=== PATIENT | male | born 1970 | race African-American/Black ===

== ENCOUNTER 2018-01-07 08:50 | Inpatient (IN) | payer OTHER ==
[2018-01-07] MEDS ORDERED: BIVALIRUDIN 250 MG in SODIUM CHLORIDE 0.9% 50 ML IV ONE (12:40)
[2018-01-07] MEDS ORDERED: BIVALIRUDIN BOLUS 250 MG/50 ML IV ONE (12:40)
[2018-01-07] MEDS ORDERED: SODIUM CHLORIDE 0.9% 1,000 ML IV ONE (12:42)
[2018-01-07] MEDS ORDERED: NITROGLYCERIN SL TABS 0.4 MG TAB SUBLINGUAL ONE ×2 (12:45→12:55)
[2018-01-07] MEDS ORDERED: NITROGLYCERIN 1000MCG/10ML SYRINGE INTRACORON ONE (12:58)
[2018-01-07] MEDS ORDERED: IOHEXOL 350 MG/ML 125ML BOTTLE INJ ONE (13:08)
[2018-01-07] MEDS ORDERED: NITROGLYCERIN SL TABS 0.4 MG TAB SUBLINGUAL PRN (13:13)
[2018-01-07] MEDS ORDERED: RX INFO: IV CONTRAST WAS GIVEN 1 EACH MISC MISCELLANE PRN (13:13)
[2018-01-07] MEDS ORDERED: ZOLPIDEM 5 MG TAB PO PRN (13:13)
[2018-01-07] MEDS ORDERED: MAG HYDROX/AL HYDROX/SIMETH 30 ML CUP PO PRN (13:13)
[2018-01-07] MEDS ORDERED: ATROPINE SULFATE 0.1 MG/ML 10ML SYRINGE IV PRN (13:13)
[2018-01-07] MEDS ORDERED: SODIUM CHLORIDE 0.9% 1,000 ML IV SCH ×2 (13:15→18:45)
[2018-01-07] MEDS ORDERED: NITROGLYCERIN SL TABS 0.4 MG TAB SUBLINGUAL STA (15:05)
[2018-01-07] MEDS ORDERED: amLODIPine 5 MG TAB PO STA (15:07)
[2018-01-07] MEDS ORDERED: LOSARTAN 50 MG TAB PO SCH ×2 (16:30→21:00)
[2018-01-07 17:16] LABS: Glucose,Whole Blood 133 mg/dL (75-99)
[2018-01-07] MEDS: hydrALAZINE HCL 50 MG TAB PO SCH ×2 (18:38→21:47)
[2018-01-07 20:40] LABS: INR 1.1 (<1.2); Prothrombin Time 10.8 sec (9.0-12.0)
[2018-01-07] MEDS: amLODIPine 5 MG TAB PO SCH (20:49)
[2018-01-07] MEDS: ATORVASTATIN 80 MG TAB PO SCH (20:49)
[2018-01-07] MEDS: SODIUM CHLORIDE 0.9% 1,000 ML IV SCH (20:50)
[2018-01-07] MEDS ORDERED: hydrALAZINE HCL 50 MG TAB PO SCH (21:00)
[2018-01-07 21:34] VITALS: BMI 24.5
--- NOTE | 2018-01-07 22:13 | PTCA ---
PERCUTANEOUSTRANS CORORONARY ANGIOGRAPHY DATE OF SERVICE: 01/07/2018 PROCEDURE PERFORMED: PTCA and stenting of mid left anterior descending coronary artery with a drug-eluting stent. PERFORMED BY: Dr. Steve Glilis. LEVEL OF SEDATION: Moderate conscious sedation time was 30 minutes. The patient received a combination of Benadryl and fentanyl. He was monitored very closely and his oxygen saturation was monitored throughout the procedure. CLINICAL INFORMATION: Mr. Tony Leyva is a 47-year-old gentleman seen and evaluated by Dr. Zarco at [facility] where he presented with chest pain and had a non-ST elevation NE. He also had a complete third-degree heart block. He underwent a temporary transvenous pacemaker from right femoral approach and then also had a coronary angiography at [facility], which revealed 95% mid LAD lesion and a 50- 60% RCA lesion. He was advised LAD intervention and transferred for the procedure here. PROCEDURE NOTE: The existing 6-Chinese introducer in the right femoral artery was used to perform the procedure. I used a standard left Trung type guide catheter to cannulate the left coronary artery. A BMW wire was used to cross the lesion. Predilatation was performed using a 3.0 caliber 8 mm balloon initially but because the balloon kept slipping, I used a larger 12 mm long 3.0 caliber balloon to pre-dilate the lesion and then deployed a 4.0 caliber 12 mm long Xience stent with an excellent angiographic result. The patient had chest pain, but because of his paced rhythm, we could not discern any EKG changes. Excellent angiographic result without complication was achieved. I spoke to the patient's friend by telephone but his mother was not available by telephone and no other family member was in the hospital. Excellent angiographic result without complication was achieved. The patient was sent to the observation unit waiting for an ICU bed. MMODL / IJN: [id number] /
[2018-01-08] MEDS ORDERED: hydrALAZINE HCL 50 MG TAB PO STA (00:47)
[2018-01-08] MEDS ORDERED: LOSARTAN 50 MG TAB PO ONE (03:00)
[2018-01-08 04:58] LABS: Basophils % (A) 0 %; Eosinophils # (A) 0.1 k/uL (0-0.7); Eosinophils % (A) 1 %; HCT 46.3 % (39.0-53.0); HGB 16.3 gm/dL (13.0-17.5); Lymphocytes # (A) 1.6 k/uL (1.0-4.8); Lymphocytes % (A) 18 %; MCH 30.9 pg (25.0-35.0); MCHC 35.2 g/dL (31.0-37.0); MCV 87.7 fL (80.0-100.0); Mean Platelet Volume 8.6; Monocytes # (A) 0.8 k/uL (0-1.0); Monocytes % (A) 9 %; Neutrophils # (A) 6.4 k/uL (1.3-7.7); Neutrophils % (A) 70 %; Platelet Count 159 k/uL (150-450); RBC 5.28 m/uL (4.30-5.90); RDW 13.1 % (11.5-15.5); WBC 9.1 k/uL (3.8-10.6)
[2018-01-08 05:03] LABS: Anion Gap 11 mmol/L; Blood Urea Nitrogen 13 mg/dL (9-20); Calcium 9.5 mg/dL (8.4-10.2); Carbon Dioxide 20 mmol/L (22-30); Chloride 108 mmol/L (98-107); Glucose 97 mg/dL (74-99); Potassium 4.1 mmol/L (3.5-5.1); Sodium 139 mmol/L (137-145)
[2018-01-08] MEDS ORDERED: ceFAZolin 1,000 MG in SODIUM CHLORIDE 0.9% IRRIGATIO 250 ML IRRIGATION ONE (06:00)
[2018-01-08] MEDS ORDERED: ceFAZolin IN SWFI 2 GM/20 ML SYRINGE IVP ONE (06:00)
[2018-01-08] MEDS ORDERED: ACETAMINOPHEN TAB 325 MG TAB PO PRN (06:45)
[2018-01-08] MEDS: LOSARTAN 25 MG TAB PO SCH ×2 (08:56→19:57)
[2018-01-08] MEDS: hydrALAZINE HCL 50 MG TAB PO SCH ×4 (08:56→21:12)
[2018-01-08] MEDS: ACETAMINOPHEN TAB 325 MG TAB PO PRN ×2 (08:58→16:27)
[2018-01-08] MEDS ORDERED: ASPIRIN 325 MG TAB PO SCH (09:00)
[2018-01-08] MEDS ORDERED: LOSARTAN 50 MG TAB PO SCH (09:00)
[2018-01-08] MEDS ORDERED: IV FLUID CONTINUATION 500 ML IV ONE (09:50)
[2018-01-08] MEDS ORDERED: IV FLUID CONTINUATION 300 ML IV ONE (09:50)
[2018-01-08] MEDS ORDERED: IOHEXOL 350 MG/ML 50ML BOTTLE INJ ONE (10:10)
[2018-01-08] MEDS ORDERED: fentaNYL (PF) 50 MCG/ML 2 ML AMP ONE (10:13)
[2018-01-08] MEDS ORDERED: MIDAZOLAM 2 MG/2 ML VIAL ONE (10:13)
[2018-01-08] MEDS ORDERED: fentaNYL (PF) 50 MCG/ML 2 ML AMP IV ONE (11:00)
[2018-01-08] MEDS: MIDAZOLAM 2 MG/2 ML VIAL IV ONE ×2 (11:00→11:13)
[2018-01-08] MEDS ORDERED: LIDOCAINE 1% INJ 10MG/ML (20 ML MDV) SQ ONE (11:08)
[2018-01-08] MEDS ORDERED: LIDOCAINE 2% INJ 20 MG/ML SQ ONE (12:42)
[2018-01-08] MEDS ORDERED: LABETALOL 5 MG/ML VIAL MDV ONE (12:56)
[2018-01-08] MEDS ORDERED: LABETALOL 5 MG/ML VIAL MDV IVP ONE (12:59)
[2018-01-08] MEDS: amLODIPine 5 MG TAB PO SCH ×2 (13:40→19:57)
[2018-01-08] MEDS: ASPIRIN 81 MG PO SCH (13:40)
[2018-01-08] MEDS: cloNIDine HCL 0.1 MG TAB PO SCH ×2 (13:43→19:57)
[2018-01-08] MEDS: CLOPIDOGREL 75 MG TAB PO SCH (13:43)
--- NOTE | 2018-01-08 15:19 | P.CNPUL ---
History of Present Illness Consult date: 01/08/18 Requesting physician: Jordon Busch Reason for consult: COPD Chief complaint: COPD History of present illness: Tony Leyva is a 47 y.o. male being seen examined and evaluated today. The patient initially came in to [facility] to the emergency room with complaints of chest pain and shortness of breath. He states his chest pain was ongoing for the last 5 days and had been progressively getting worse. In the emergency room the EKG showed the patient to be in complete heart block with a rate into the mid 40s, he was also hypertensive. He also underwent a CT scan of the chest which did show a mild aneurysmal dilation of the ascending aorta that was 3.7 cm. Chest x-ray was negative. His current echocardiogram is pending. The patient was started on a nitro drip and his heart rate is 40. Patient was also started on heparin drip as well. Patient had a BNP of 440. His troponins were slightly elevated. He had a potassium of 3.6. The patient is a current every day smoker and smokes at least 2 packs per day and has for over 40 years. He also smokes recreational marijuana as well as cigarettes. Patient does have a significant family history for heart attacks resulting in with his grandma and his aunt. Cardiology has seen the patient and the patient will be going for a heart catheterization with pacemaker insertion on 01/07/18 however was found to have an occlusion of 95% to the LAD and was transferred to [facility] for intervention. Intervention completed on , and pacemaker insertion done on 01/08/18 please see those notes for details. Patient states he has not seen a doctor in over 20 years. He has never had a pulmonary workup or cardiac workup. Presently the patient is resting up in bed on room air. Previously the patient was on supplemental oxygen overnight. However he was complaining of some nasal dryness. He denies any current chest pain or any current shortness of breath at this time. Review of Systems 14 point ROS was completed and is negative unless noted above in the HPI Past Medical History Past Medical History: COPD, Hypertension History of Any Multi-Drug Resistant Organisms: None Reported Past Anesthesia/Blood Transfusion Reactions: No Reported Reaction Past Psychological History: No Psychological Hx Reported Smoking Status: Current every day smoker Past Alcohol Use History: Rare Additional Past Alcohol Use History / Comment(s): "Social" "Less then one a week " Past Drug Use History: Marijuana Medications and Allergies Home Medications Medication Instructions Recorded Confirmed Type No Known Home Medications [No 01/07/18 01/07/18 History Known Home Medications] Allergies Allergy/AdvReac Type Severity Reaction Status Date / Time No Known Allergies Allergy Verified 01/07/18 18:22 Physical Exam Vitals: Vital Signs Temp Pulse Pulse Resp BP BP Pulse Ox 01/08/18 14:15 80 18 177/112 96 01/08/18 14:00 78 18 174/116 97 01/08/18 13:45 77 16 183/119 96 01/08/18 13:30 75 16 173/115 96 01/08/18 09:45 50 L 10 L 180/85 01/08/18 09:30 50 L 13 172/94 97 01/08/18 09:15 50 L 10 L 173/94 99 01/08/18 09:00 50 L 16 159/86 98 01/08/18 08:45 50 L 18 159/88 99 01/08/18 08:30 50 L 16 170/89 99 01/08/18 08:15 50 L 18 177/88 97 01/08/18 08:00 98.4 F 50 L 20 179/90 98 01/08/18 07:45 50 L 22 170/80 98 01/08/18 07:30 49 L 16 172/90 98 01/08/18 06:45 49 L 21 159/84 98 01/08/18 06:30 49 L 17 162/82 97 01/08/18 06:15 49 L 12 168/90 97 01/08/18 06:00 49 L 12 172/82 98 01/08/18 05:45 50 L 16 172/82 96 01/08/18 05:30 49 L 16 167/83 96 01/08/18 05:15 49 L 16 150/84 97 01/08/18 05:00 49 L 18 153/78 98 01/08/18 04:45 49 L 17 154/78 96 01/08/18 04:30 50 L 14 167/80 96 01/08/18 04:15 49 L 16 152/74 97 01/08/18 04:00 98.9 F 49 L 15 168/78 98 01/08/18 03:45 49 L 10 L 173/74 97 01/08/18 03:30 49 L 17 157/75 97 01/08/18 03:15 49 L 12 152/75 98 01/08/18 03:00 49 L 14 147/71 97 01/08/18 02:30 49 L 16 167/78 97 01/08/18 02:00 49 L 16 158/72 98 01/08/18 01:30 49 L 18 177/85 99 01/08/18 01:00 50 L 15 181/89 98 01/08/18 00:30 49 L 10 L 179/83 99 01/08/18 00:18 49 L 59 H 189/84 97 01/08/18 00:00 98.8 F 49 L 10 L 171/83 97 01/07/18 23:30 49 L 16 168/81 96 01/07/18 23:00 49 L 17 158/83 96 01/07/18 22:30 50 L 12 163/83 97 01/07/18 22:00 49 L 19 183/87 97 01/07/18 21:30 51 L 12 176/102 98 01/07/18 21:00 50 L 26 H 196/98 98 01/07/18 20:49 49 L 20 191/95 99 01/07/18 20:25 99 01/07/18 20:00 98.4 F 49 L 11 L 183/93 98 01/07/18 19:30 50 L 11 L 175/105 98 01/07/18 19:00 51 L 10 L 188/92 98 01/07/18 18:30 49 L 14 189/107 98 01/07/18 18:00 50 L 62 H 208/101 98 01/07/18 17:30 98.5 F 50 L 11 L 191/106 98 01/07/18 16:30 20 180/97 Intake and Output 01/08/18 01/08/18 01/08/18 06:59 14:59 22:59 Intake Total 530 375 Output Total 450 200 Balance 80 175 Intake: IV 530 375 Sodium Chloride 0.9% 1, 530 100 000 ml @ 50 mls/hr IV . Q20H [facility] Rx#:[id number] Output: Urine 450 200 Other: Voiding Method Urinal Urinal # Voids 0 1 # Bowel Movements 0 Weight 89.1 kg 89.1 kg GENERAL EXAM: Alert, comfortable in no apparent distress. HEAD: Normocephalic. EYES: Normal reaction of pupils, equal size. NOSE: Clear with pink turbinates. THROAT: No erythema or exudates. NECK: No masses, no JVD. CHEST: No chest wall deformity. Status post pacemaker insertion. Dressing clean and dry and intact. LUNGS: Equal air entry with some expiratory wheezing. CVS: S1 and S2 normal with no audible mumurs, regular rhythm. ABDOMEN: No hepatosplenomegaly, normal bowel sounds, no guarding or rigidity. EXTREMITIES: No edema noted, pedal pulses palpable. CENTRAL NERVOUS SYSTEM: No focal deficits, tone is normal in all 4 extremities. 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 Chest x-ray in the morning. Add DuoNeb and budesonide patient continues to be somewhat wheezing. Continue with pulmonary hygiene, coughing and deep breathing exercises , and supportive care. Supplemental oxygen to maintain oxygen saturations of 92 % or better. Continue nebulizer treatments. GI and DVT prophylaxis. Smoking cessation discussed at length. Patient needs to have a full pulmonary workup in the outpatient setting including a PFT. Cardiology recommendations. We will continue to monitor labs/results and adjust treatment as necessary. Further recommendations pending. I performed an examination of the patient and discussed their management with the nurse practitioner. I have reviewed the nurse practitioner's note and agree with the documented findings and plan of care.
[2018-01-08] MEDS ORDERED: SODIUM CHLORIDE 0.65% NASAL SPRAY 44 ML BTL NASAL PRN (15:20)
[2018-01-08] MEDS: ceFAZolin IN SWFI 2 GM/20 ML SYRINGE IVP SCH ×2 (16:28→22:35)
[2018-01-08] MEDS: IPRATROPIUM-ALBUTEROL 3 ML NEB INHALATION SCH (19:35)
[2018-01-08] MEDS: BUDESONIDE 0.5 MG/2 ML NEBU INHALATION SCH (19:35)
[2018-01-08] MEDS: ATORVASTATIN 80 MG TAB PO SCH (19:56)
[2018-01-08] MEDS: SODIUM CHLORIDE 0.9% 1,000 ML IV SCH (19:57)
[2018-01-08] MEDS: Acetaminophen-Codeine 300-30mg TAB PO PRN (21:12)
[2018-01-09] MEDS: Acetaminophen-Codeine 300-30mg TAB PO PRN ×2 (01:37→05:44)
[2018-01-09 03:57] VITALS: RESP 18
[2018-01-09] MEDS: ceFAZolin IN SWFI 2 GM/20 ML SYRINGE IVP SCH ×2 (05:44→12:13)
--- NOTE | 2018-01-09 06:29 | XR ---
EXAMINATION TYPE: XR chest 2V DATE OF EXAM: 01/09/2018 HISTORY: Lead placement check. REFERENCE: NONE. FINDINGS: A bipolar pacemaker is in place via a left subclavian approach. Approximately overlies the upper portion of the right atrium and distally overlies the right ventricle. Lungs are clear. Pleural space are clear. Heart size is normal. No pneumothorax is seen. IMPRESSION: STATUS POST PACEMAKER INSERTION.
--- NOTE | 2018-01-09 06:57 | HP ---
HISTORY AND PHYSICAL CHIEF COMPLAINT: This is a 47-year-old white male, status post angioplasty of the LAD, cardiomyopathy and pacemaker for third-degree heart block, having no chest pain or shortness of breath. Risk factor modification explained to the patient. Medications reviewed. REVIEW OF SYSTEMS: The patient's review of systems is negative 14 point review of systems except for mentioned in HPI. PHYSICAL EXAM: VITAL SIGNS: Stable, afebrile. CARDIOVASCULAR: S1, S2. LUNGS: Clear. GI: Soft. HEMATOLOGY: Negative Homans. VASCULAR: Normal dorsalis pedis, posterior tibial and radial pulses. OPHTHALMOLOGIC: Pupils equal, round, react to light and accommodation. Extraocular movements intact. PSYCH: Fair mood and affect. ASSESSMENT: 1. Non ST elevation myocardial infarction, PTCA of the LAD, coronary artery disease. 2. Please see further orders. MMODL / IJN: [id number] /
[2018-01-09] MEDS: IPRATROPIUM-ALBUTEROL 3 ML NEB INHALATION SCH ×2 (07:06→13:21)
[2018-01-09] MEDS: BUDESONIDE 0.5 MG/2 ML NEBU INHALATION SCH (07:06)
[2018-01-09] MEDS: amLODIPine 5 MG TAB PO SCH (08:35)
[2018-01-09] MEDS: ASPIRIN 81 MG PO SCH (08:35)
[2018-01-09] MEDS: cloNIDine HCL 0.1 MG TAB PO SCH (08:35)
[2018-01-09] MEDS: CLOPIDOGREL 75 MG TAB PO SCH (08:35)
[2018-01-09] MEDS: hydrALAZINE HCL 50 MG TAB PO SCH ×2 (08:36→12:14)
[2018-01-09] MEDS: LOSARTAN 25 MG TAB PO SCH (08:36)
--- NOTE | 2018-01-09 09:32 | P.PN ---
Subjective Progress Note Date: 01/09/18 Tony Leyva is a 47 y.o. male being seen examined and evaluated today. The patient initially came in to [facility] to the emergency room with complaints of chest pain and shortness of breath. He states his chest pain was ongoing for the last 5 days and had been progressively getting worse. In the emergency room the EKG showed the patient to be in complete heart block with a rate into the mid 40s, he was also hypertensive. He also underwent a CT scan of the chest which did show a mild aneurysmal dilation of the ascending aorta that was 3.7 cm. Chest x-ray was negative. His current echocardiogram is pending. The patient was started on a nitro drip and his heart rate is 40. Patient was also started on heparin drip as well. Patient had a BNP of 440. His troponins were slightly elevated. He had a potassium of 3.6. The patient is a current every day smoker and smokes at least 2 packs per day and has for over 40 years. He also smokes recreational marijuana as well as cigarettes. Patient does have a significant family history for heart attacks resulting in with his grandma and his aunt. Cardiology has seen the patient and the patient will be going for a heart catheterization with pacemaker insertion on 01/07/18 however was found to have an occlusion of 95% to the LAD and was transferred to [facility] for intervention. Intervention completed on , and pacemaker insertion done on 01/08/18 please see those notes for details. Patient states he has not seen a doctor in over 20 years. He has never had a pulmonary workup or cardiac workup. Presently the patient is resting up in bed on room air. Previously the patient was on supplemental oxygen overnight. However he was complaining of some nasal dryness. He denies any current chest pain or any current shortness of breath at this time. 01/09/2018: Patient seen and examined. He is ambulating in his room and hallway. The patient denies shortness of breath or chest pain. He states he feels really good and wants to go home. He states that he plans on quitting smoking. He is motivated by his cardiac issues. He is currently on room air. Objective - Vital Signs Vital signs: Vital Signs Temp 97.6 F 01/09/18 03:56 Pulse 75 01/09/18 07:21 Resp 18 01/09/18 03:56 BP 168/94 01/09/18 03:56 Pulse Ox 99 01/09/18 07:06 Intake & Output 01/08/18 01/09/18 01/09/18 18:59 06:59 18:59 Intake Total 375 600 360 Output Total 425 350 Balance -50 250 360 Weight 89.1 kg 85.8 kg Intake: IV 375 Sodium Chloride 0.9% 1, 100 000 ml @ 50 mls/hr IV . Q20H [facility] Rx#:[id number] Oral 600 360 Output: Urine 425 350 Other: Voiding Method Urinal Toilet Urinal # Voids 1 1 # Bowel Movements 0 - Exam GENERAL EXAM: Alert, comfortable in no apparent distress. HEAD: Normocephalic. EYES: Normal reaction of pupils, equal size. NOSE: Clear with pink turbinates. THROAT: No erythema or exudates. NECK: No masses, no JVD. CHEST: No chest wall deformity. Status post pacemaker insertion. Dressing clean and dry and intact. LUNGS: Equal air entry with some expiratory wheezing on forced expiration CVS: S1 and S2 normal with no audible mumurs, regular rhythm. ABDOMEN: No hepatosplenomegaly, normal bowel sounds, no guarding or rigidity. EXTREMITIES: No edema noted, pedal pulses palpable. CENTRAL NERVOUS SYSTEM: No focal deficits, tone is normal in all 4 extremities. - Labs CBC & Chem 7: 01/08/18 04:18 01/08/18 04:18 Assessment and Plan Assessment: Complete heart block and AV disassociation with bradycardia Status post catheterization, stenting to the LAD which had a 95% occlusion Status post pacemaker insertion Cardiomyopathy COPD Nicotine dependence Hypertension Plan Medications have been reviewed and will be continued as ordered. Continue with pulmonary hygiene, coughing and deep breathing exercises, and supportive care. Supplemental oxygen to maintain oxygen saturations of 92% or better. GI and DVT prophylaxis. Smoking cessation discussed at length. Patient needs to have a full pulmonary workup in the outpatient setting including a PFT. Cardiology recommendations. We will continue to monitor labs/results and adjust treatment as necessary. Further recommendations pending. Continue Duonebs and Pulmicort while inpatient. Discharge with Advair/Symbicort/Breo + Spiriva/Incruse/Tudorza , alternatively Trelegy could be considered if insurance will cover. Smoking cessation recommended. Will discuss Chantix on an outpatient basis. Pulmonary follow up in 1-2 weeks.
[2018-01-09 09:45] LABS: Basophils % (A) 1 %; Eosinophils # (A) 0.2 k/uL (0-0.7); Eosinophils % (A) 3 %; HGB 16.2 gm/dL (13.0-17.5); Lymphocytes # (A) 2.1 k/uL (1.0-4.8); Lymphocytes % (A) 24 %; MCH 30.6 pg (25.0-35.0); MCHC 34.4 g/dL (31.0-37.0); MCV 89.1 fL (80.0-100.0); Mean Platelet Volume 8.4; Monocytes # (A) 0.7 k/uL (0-1.0); Monocytes % (A) 8 %; Neutrophils # (A) 5.6 k/uL (1.3-7.7); Neutrophils % (A) 63 %; Platelet Count 162 k/uL (150-450); RBC 5.27 m/uL (4.30-5.90); RDW 13.2 % (11.5-15.5); WBC 8.8 k/uL (3.8-10.6)
[2018-01-09 10:13] LABS: Anion Gap 16 mmol/L; Blood Urea Nitrogen 17 mg/dL (9-20); Calcium 9.6 mg/dL (8.4-10.2); Carbon Dioxide 20 mmol/L (22-30); Chloride 105 mmol/L (98-107); Glucose 168 mg/dL (74-99); Potassium 3.8 mmol/L (3.5-5.1); Sodium 141 mmol/L (137-145)
[2018-01-09] MEDS: SODIUM CHLORIDE 0.9% 1,000 ML IV SCH (12:14)
--- NOTE | 2018-01-09 13:39 | P.PN ---
Subjective Progress Note Date: 01/09/18 This is a pleasant 47-year-old -[place] gentleman who was initially seen and evaluated by Dr. Zarco of the [facility] where he presented with chest pain and was found to be positive for non-ST elevation [place] and also found to be in complete third-degree heart block. He initially underwent coronary angiography [facility] which revealed 95% mid LAD lesion and a 50-60% RCA lesion as well as a permanent pacemaker implantation at that time. He was advised to be transferred here to [facility] for intervention of the LAD. He subsequently underwent PTCA and stenting of the mid LAD by Dr. NATASHA Gillis with a drug-eluting stent. Pacemaker interrogation this morning showed normally functioning device. Patient is feeling well he denies any complaints of chest discomfort feels his energy level has improved and is no longer short of breath. Objective - Vital Signs Vital signs: Vital Signs Temp 97.2 F L 01/09/18 08:00 Pulse 78 01/09/18 13:32 Resp 18 01/09/18 08:00 BP 147/93 01/09/18 08:00 Pulse Ox 99 01/09/18 08:00 Intake & Output 01/08/18 01/09/18 01/09/18 18:59 06:59 18:59 Intake Total 375 600 360 Output Total 425 350 Balance -50 250 360 Weight 89.1 kg 85.8 kg Intake: IV 375 Sodium Chloride 0.9% 1, 100 000 ml @ 50 mls/hr IV . Q20H [facility] Rx#:[id number] Oral 600 360 Output: Urine 425 350 Other: Voiding Method Urinal Toilet Urinal # Voids 1 1 # Bowel Movements 0 - Exam PHYSICAL EXAMINATION: HEENT: Head is atraumatic, normocephalic. Pupils equal, round. Neck is supple. There is no elevated jugular venous pressure. HEART EXAMINATION: Heart sounds regular, S1 and S2 normal. No murmur or gallop heard. CHEST EXAMINATION: Lungs are clear to auscultation and precussion. No chest wall tenderness is noted on palpation or with deep breathing. LIC site with dressing dry and intact small amount of drainage marked appears to be old, no sign of hematoma. ABDOMEN: Soft, nontender. Bowel sounds are heard. No organomegaly noted. EXTREMITIES: 2+ peripheral pulses with no evidence of peripheral edema and no calf tenderness noted. Right femoral puncture site soft without ecchymosis or hematoma.. NEUROLOGIC patient is awake, alert and oriented x3. . 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 He will go home on amlodipine 5 mg by mouth twice a day aspirin 81 mg by mouth daily, Lipitor 80 mg by mouth daily at bedtime, clonidine 0.1 mg by mouth twice a day, Plavix 75 mg by mouth daily, hydralazine 100 mg by mouth 4 times a day, losartan 75 mg by mouth twice a day and nitroglycerin tablets 0.4 mg sublingual every 5 minutes as needed for chest pain.. He will follow-up with Dr. Zarco and the device nurse in about one week. The above dictated assessment and findings were discussed with signing physician. The impression and plan of care have been directed as dictated. Alison Love, Nurse Practitioner, acting as scribe for signing physician.
[2018-01-09 15:39] VITALS: BP 136/81; PULSE 81; TEMP 97
--- NOTE | 2018-01-09 16:56 | P.PCN ---
Date of Procedure: 01/08/18 Preoperative Diagnosis: A complete heart block Postoperative Diagnosis: Same. Status post permanent pacemaker implantation Procedure(s) Performed: Axillary venography, permanent pacemaker implantation Description of Procedure: HISTORY: This is a 47-year-old gentleman who was admitted to [facility] with chest pains and evidence of complete AV block. Patient had findings of acute coronary syndrome. Patient had a cardiac catheterization and was found to have critical stenosis involving the mid LAD. Patient had stent placement yesterday. Patient continued to be in complete heart block. Patient has backup temporary pacemaker. Patient is advised to have permanent pacemaker implantation. Patient is advised the risks and benefits of the procedure. Patient is going to have a dual-chamber pacemaker. He does have underlying his cardiomyopathy, Ischemic/nonischemic ,with an ejection fraction of 25-30%. We are going to use defibrillator lead in the ventricle., In case patient needs upgrading to defibrillator. If the LV function doesn't improve. CONSENT:I have discussed the risks, benefits and alternative therapies for the above-mentioned procedure and for both sedation/analgesia as well as necessary blood product administration, if indicated, as they pertain to this patient. The patient has indicated understanding and acceptance of the risks and procedures discussed. PROCEDURE: Patient was brought to the lab in a fasting state. Patient was prepped and draped in the usual fashion. Patient was given IV sedation with fentanyl and Versed. The skin below the left clavicle was infiltrated with lidocaine. An incision was made parallel to deltopectoral groove was deepened until the pectoral fascia was exposed. A pocket was created by blunt dissection and cautery. Axillary venography was performed to delineate the course of the axillary vein. 2 sticks were performed into extrathoracic portion of the axillary vein and 2 sheaths were advanced over the guidewires and left in subclavian vein. Conscious Sedation: Versed 1 mg Fentanyl 50 g Duration 137 minutes LEADS: ATRIAL: . This is manufactured by [employer]. Model number is 1882TC./46 cm. Serial number is [id number] VENTRICULAR: . This is manufactured by [employer]. Model number is 7122/65 cm. Serial number is [id number]. The ventricular lead is maneuvered l with help of a straight and curved stylets into the left ventricle apical region. Satisfactory position was obtained and threshold measurements were made. The atrial lead was then maneuvered into the right atrial appendage. And thresholds were obtained. THRESHOLDS: ATRIUM:The minimum patient threshold was 0.75 at pulse width of 0.4 ms.with impedance of 490 ohms. P-wave: More than 5 mV VENTRICThe minimum patient threshold was 0.7 V at pulse width of 0.4 ms with impedance of 580 ohms.. R-wave:6 mV The leads and pulse generator remained in the pocket after it was washed with antibiotics. Pocket was closed in the usual fashion. The fascia was closed with 2-0 Prolene ,the subcutaneous tissue was closed with 3-0 Prolene and the skin was closed with 4-0 Prolene. PROGRAMMING: MODE:DDD RATE: 60 to 1:30 OUTPUT: Atrium : 2 holes at a pulse width of 0.4 ms Ventricle: 1 V at pulse width of 0.4 ms FINAL IMPRESSION: #1. Axillary venography #2. Successful dual-chamber permanent pacemaker implantation using defibrillator lead is the ventricle . COMPLICATION: None PLAN: Patient will be continued on prophylactic antibiotics. X-ray tomorrow morning. If stable patient will be discharged home in 24 hours.
== END 2018-01-09 15:42 | disposition home or self-care (01) | DRG 242 ==
LOC: 6ICU 12:33 → 6SEL 01-08 13:05
PROVIDERS: ADMIT Family Medicine; ATTEND Family Medicine
PROC: 027034Z Dilation of Coronary Artery, One Artery with Drug-eluting Intraluminal Device, Percutaneous Approach (ICD-10-PCS; 2018-01-07)
PROC: 0JH606Z Insertion of Pacemaker, Dual Chamber into Chest Subcutaneous Tissue and Fascia, Open Approach (ICD-10-PCS; principal; 2018-01-09)
PROC: 02HK3JZ Insertion of Pacemaker Lead into Right Ventricle, Percutaneous Approach (ICD-10-PCS; 2018-01-09)
DX: I44.2 Atrioventricular block, complete (principal); I21.4 Non-ST elevation (NSTEMI) myocardial infarction; I25.10 Atherosclerotic heart disease of native coronary artery without angina pectoris; F17.210 Nicotine dependence, cigarettes, uncomplicated; J44.9 Chronic obstructive pulmonary disease, unspecified; I10 Essential (primary) hypertension; I25.5 Ischemic cardiomyopathy; R00.1 Bradycardia, unspecified; Z71.6 Tobacco abuse counseling; Z82.49 Family history of ischemic heart disease and other diseases of the circulatory system
CPT/HCPCS: 33208; 71046; 80048; 85025; 85610; 94640; 94760

== ENCOUNTER 2018-06-07 16:45 | Day surgery (SDC) | payer OTHER ==
[2018-06-04 11:47] VITALS: BMI 24.5
[~2018-06-07 16:45] MED LIST: SODIUM CHLORIDE 0.9% 1,000 ML IV SCH
[2018-06-07 16:56] VITALS: PULSE 81; RESP 20
[2018-06-07] MEDS ORDERED: SODIUM CHLORIDE 0.9% 500 ML IV ONE (16:58)
[2018-06-07] MEDS ORDERED: IOPAMIDOL-250 50ML BTL IV ONE (17:05)
--- NOTE | 2018-06-07 17:20 | P.PCN ---
Preoperative Diagnosis: Diagnosis Ischemic cardio myopathy, severe, no improvement despite medical treatment and revascularization for greater than 3 months 100% RV pacing secondary to complete heart block Dual-chamber pacemaker implanted within RV ICD lead in situ Awaiting upgrade to a biventricular ICD Cinefluoroscopy of the leads shows A dual-chamber system no fractures no breaks. Right atrial screw-in lead in the right atrial appendage. Single coil ICD lead in the RV apex Left upper extremity venogram performed A total of 30 mL of dye injected. Extensive collaterals noted around the area of stenosis in the left subclavian/innominate vein Suggest Upgrade to a dual-chamber biventricular ICD Attempt subclavian access centrally and if possible and proceed with implantation of an LV lead otherwise epicardial LV lead placement would be recommended Disposition: same day
[2018-06-07 17:31] VITALS: BP 167/113
== END 2018-06-07 17:33 | disposition home or self-care (01) ==
LOC: CATHEP 16:45
PROVIDERS: ATTEND Internal Medicine Clinical Cardiac Electrophysiology
DX: I25.5 Ischemic cardiomyopathy (principal); I25.10 Atherosclerotic heart disease of native coronary artery without angina pectoris; I11.0 Hypertensive heart disease with heart failure; I50.22 Chronic systolic (congestive) heart failure; F17.210 Nicotine dependence, cigarettes, uncomplicated; I44.2 Atrioventricular block, complete; Z95.0 Presence of cardiac pacemaker; I25.2 Old myocardial infarction; Z95.5 Presence of coronary angioplasty implant and graft; E78.5 Hyperlipidemia, unspecified; Z79.02 Long term (current) use of antithrombotics/antiplatelets; Z79.82 Long term (current) use of aspirin; Z79.51 Long term (current) use of inhaled steroids; Z79.899 Other long term (current) drug therapy
CPT/HCPCS: 36005; 75820; Q9966; 76000

== ENCOUNTER 2018-06-15 09:53 | Day surgery (SDC) | payer OTHER ==
[~2018-06-15 09:53] MED LIST changes: +LACTATED RINGERS 1,000 ML IV SCH; +LIDOCAINE 1% 20 ML VIAL (10MG/ML) FOR IV START INTRADERMA PRN; +ceFAZolin 1,000 MG in SODIUM CHLORIDE 0.9% IRRIGATIO 250 ML IRRIGATION ONE; +ceFAZolin IN SWFI 2 GM/20 ML SYRINGE IVP ONE
[2018-06-15] MEDS ORDERED: PROPOFOL 10 MG/ML 20 ML VIAL IV ONE (11:01)
[2018-06-15] MEDS ORDERED: fentaNYL (PF) 50 MCG/ML 2 ML AMP ONE (11:01)
[2018-06-15] MEDS ORDERED: ceFAZolin 1,000 MG VIAL ONE (11:01)
[2018-06-15] MEDS ORDERED: MIDAZOLAM 2 MG/2 ML VIAL ONE (11:01)
[2018-06-15] MEDS ORDERED: SODIUM CHLORIDE 0.9% 1,000 ML IV ONE (11:05)
[2018-06-15] MEDS ORDERED: LIDOCAINE 1% INJ 10MG/ML (20 ML MDV) ONE ×3 (11:30→12:53)
[2018-06-15] MEDS: LIDOCAINE 1% INJ 10MG/ML (20 ML MDV) SQ ONE ×2 (11:47→11:52)
[2018-06-15] MEDS ORDERED: LIDOCAINE 1% INJ 10MG/ML (20 ML MDV) SQ ONE ×3 (11:47→12:18)
[2018-06-15] MEDS ORDERED: IOPAMIDOL-250 50ML BTL IV ONE ×2 (12:47→15:22)
[2018-06-15] MEDS ORDERED: ACETAMINOPHEN TAB 325 MG TAB PO PRN (15:15)
[2018-06-15] MEDS ORDERED: ACETAMINOPHEN IV (For NPO) 1,000 MG in EMPTY BAG 1 BAG IVPB ONE (15:30)
[2018-06-15] MEDS ORDERED: ACETAMINOPHEN IV (For NPO) 1,000 MG/100 ML VIAL IVPB ONE (16:00)
[2018-06-15 16:34] VITALS: BMI 25.0
[2018-06-15] MEDS: hydrALAZINE HCL 50 MG TAB PO SCH ×2 (16:40→23:48)
[2018-06-15] MEDS: HYDROcodone/APAP 5-325MG 1 EACH TAB PO PRN ×3 (16:40→23:47)
[2018-06-15] MEDS: ceFAZolin IN SWFI 2 GM/20 ML SYRINGE IVP SCH ×2 (18:06→23:49)
[2018-06-15] MEDS: CARVEDILOL 12.5 MG TAB PO SCH (18:06)
[2018-06-15] MEDS: SYMBICORT 80-4.5 MCG INHALER INHALATION SCH (19:07)
--- NOTE | 2018-06-15 19:09 | P.PCN ---
Preoperative Diagnosis: Procedure Upgrade to a biventricular ICD Indication for the procedure Severe ischemic cardio myopathy that has not improved following percutaneous revascularization and medical treatment for greater than 3 months, CHF class II him a complete heart block with 100% RV pacing, patient has a dual-chamber pacemaker in situ. RV lead is an ICD lead. Also has an atrial lead in situ Left upper extremity venogram revealed occluded axillary and subclavian system with a patent innominate system Procedure details Patient was brought to the EP lab in a fasting state. Written informed consent obtained prior to the procedure. The left pectoral area was prepped and draped as a protocol. An incision was made parallel to the deltopectoral groove a wart 1.5 cm medial to it. The incision was carried down to level of the generator. The generator was freed from the surrounding tissue and removed from the pocket while the leads was still connected. The pacemaker generator was implanted subcutaneously just below the left clavicle. Subclavian access and been obtained 2, previously. This was in the month of December this 2017 It took about 1 hour simply to debride the pocket and removed all the fibrotic tissue. This is a very fibrotic pocket and the leads were carefully freed from the surrounding fibrosis. This lead sleeves were freed and that resutured to remove the band in both the right ventricular and right atrial leads as the came out from below the clavicle. In the process of freeing the leads an incision was made from inside out superior to the main incision. 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 However there was a innominate vein was patent First axillary vein access was obtained at the level of the second rib with a micropuncture wire would not pass through into the central circulation Central Subclavian access was obtained just beyond the occlusion without any acute complications. However given the degree of fibrosis in the region venoplasty had to be performed. Serial dilators were used up to 10-Nepali to dilate the tract and the subclavian vein to gain entry into the central circulation. Thereafter the coronary sinus sheath, [employer] was placed in the central circulation over long wire and dilator. The dilator and long wire were removed and a coronary sinus catheter was placed. Keanu sinus access was obtained. While CS access was fairly straightforward, given the high pressures within the coronary venous system venography would not reveal any lateral or posterior lateral veins because the high pressure in the system. Multiple enteroplasty wires and dig via be used to probe venous circulation in the heart and an anterolateral vein was found. Multiple venograms of the coronary sinus were performed. Multiple sheaths were used to different LV leads were used. The inner subselectively sheath was used. Numerous angioplasty wires were used multiple attempts were made to gain access into the lateral vein. Multiple dislodgments occurred while placing the leads in the lateral vein because this was a diminutive vein and we were trying to place the quadripolar lead as distally as possible for stability. Subsequently the [employer] professor , model number [id number], 86 cm length and serial numberC [id number] was successfully placed fairly distally and a very stable position. No diaphragmatic stimulation noted good threshold noted. Pacing impedance 780 ohms, pacing threshold 0.6 V at 0.5 ms RV pacing impedance 450 ohms, pacing threshold 1.5 V at 0.5 ms Right atrial impedance 400 ohms, pacing threshold 0.5 V at 0.5 ms P waves 5 mV While removing the long sheath, while splitting it one could feel the degree of stenosis in the subclavian tract with the lead remained stable as the sheath was split and removed completely The dual-chamber pacemaker was removed A biventricular ICD was implanted in the new subfascial pocket. The leads and device then placed in the subfascial pocket and the wound is closed in 3 layers and dressed per protocol line mediated RIT programming parameters DDD 50 to 1:30 bpm, short AV delay, LV offset 30 ms Cinefluoroscopy of the end of the procedure revealed the LV lead was in stable position as well as atrial and RV ICD lead also in stable position Result Successful upgrade to a biventricular ICD Pocket debridement of the subcutaneous pocket just below the clavicle, pacemaker pocket Debridement of the fibrotic tissue and freeing all the leads. New subfascial pocket for accommodating biventricular ICD Venoplasty of the left subclavian vein Placement of an LV lead in the anterolateral vein Explantation of dual-chamber pacemaker Implantation of a new biventricular ICD generator Long procedure lasting for over 3 hours simply to implant 1 LV lead on account of the issues as described above Anesthesia: MAC Condition: stable
[2018-06-15] MEDS ORDERED: ATORVASTATIN 80 MG TAB PO SCH (21:00)
[2018-06-16] MEDS: HYDROcodone/APAP 5-325MG 1 EACH TAB PO PRN (06:34)
[2018-06-16] MEDS: ceFAZolin IN SWFI 2 GM/20 ML SYRINGE IVP SCH ×2 (06:34→12:05)
[2018-06-16 08:02] VITALS: RESP 18
[2018-06-16] MEDS: SYMBICORT 80-4.5 MCG INHALER INHALATION SCH (08:04)
[2018-06-16] MEDS: IPRATROPIUM 0.5 MG/2.5 ML NEBU INHALATION SCH ×2 (08:04→11:30)
--- NOTE | 2018-06-16 08:06 | P.DS ---
Providers Attending physician: Koko Stoll Primary care physician: [facility] Course: Patient is doing well. No dizziness lightheadedness palpitations or chest pain. Mild soakage at the ICD site noted with no hematoma On examination he is afebrile 98.1F, pulse rate in 70s, blood pressure 135/88 and 1 5710 mmHg Breath sounds are clear no rhonchi no crackles Heart sounds are normal normal S1 normal S2 murmurs or gallops Abdomen soft nontender Extremities are warm no edema Impression Severe ischemic cardio myopathy with complete heart block and 100% RV pacing. Successful upgrade to a biventricular ICD yesterday Plan Patient to go home after completion of IV antibiotics and chest x-ray and if his device interrogation is within normal limits Medication changes were explained to the patient. Prescriptions in the chart discussed with numbness follow-up with Dr. Zarco in 2-3 weeks follow-up in the device clinic in 5 days Patient Condition at Discharge: Stable Plan - Discharge Summary Discharge Rx Participant: Yes New Discharge Prescriptions: New Carvedilol 25 mg PO BID #180 tablet Losartan [Cozaar] 150 mg PO DAILY #90 tab Discontinued amLODIPine [Norvasc] 5 mg PO BID tab Losartan Potassium [Cozaar] 100 mg PO DAILY Carvedilol [Coreg*] 12.5 mg PO BID #180 tablet No Action Aspirin 81 mg PO DAILY chew Atorvastatin [Lipitor] 80 mg PO HS tab Clopidogrel [Plavix] 75 mg PO DAILY #0 tab Nitroglycerin Sl Tabs [Nitrostat] 0.4 mg SUBLINGUAL Q5M PRN tab PRN Reason: Chest Pain Fluticasone/Salmeterol [Advair 250-50 Diskus] 1 inhalation PO BID 30 Days #1 inhaler Tiotropium [place] [Spiriva] 1 cap INHALATION DAILY 30 Days #1 device hydrALAZINE HCL [Apresoline] 100 mg PO TID Docusate Sodium [Dok] 100 mg PO BID Discharge Medication List Aspirin 81 mg PO DAILY chew 01/09/18 [Rx] Atorvastatin [Lipitor] 80 mg PO HS tab 01/09/18 [Rx] Clopidogrel [Plavix] 75 mg PO DAILY #0 tab 01/09/18 [Rx] Fluticasone/Salmeterol [Advair 250-50 Diskus] 1 inhalation PO BID 30 Days #1 inhaler 01/09/18 [Rx] Nitroglycerin Sl Tabs [Nitrostat] 0.4 mg SUBLINGUAL Q5M PRN tab 01/09/18 [Rx] Tiotropium [place] [Spiriva] 1 cap INHALATION DAILY 30 Days #1 device 01/09/18 [ Rx] hydrALAZINE HCL [Apresoline] 100 mg PO TID 03/19/18 [History] Carvedilol 25 mg PO BID #180 tablet 06/15/18 [Rx] Docusate Sodium [Dok] 100 mg PO BID 06/15/18 [History] Losartan [Cozaar] 150 mg PO DAILY #90 tab 06/15/18 [Rx]
[2018-06-16] MEDS: CARVEDILOL 12.5 MG TAB PO SCH (09:00)
[2018-06-16] MEDS ORDERED: ASPIRIN 81 MG PO SCH (09:00)
[2018-06-16] MEDS ORDERED: LOSARTAN 50 MG TAB PO SCH (09:00)
[2018-06-16] MEDS ORDERED: CLOPIDOGREL 75 MG TAB PO SCH (09:00)
[2018-06-16] MEDS: hydrALAZINE HCL 50 MG TAB PO SCH (09:01)
--- NOTE | 2018-06-16 09:02 | XR ---
EXAMINATION TYPE: XR chest 2V DATE OF EXAM: 06/16/2018 COMPARISON: 01/09/2018 INDICATION: Placement of a electronic device. TECHNIQUE: Frontal and lateral views of the chest are obtained. FINDINGS: The heart size is normal. The pulmonary vasculature is normal. The lungs are clear. Electronic device overlies left chest. No pneumothorax is evident. Lead placeme nt extends to the posterior cardiac region as well as the proximal atrium IMPRESSION: 1. No pneumothorax post electronic device placement. Lead placement adequacy should be evaluated by c ardiology.
[2018-06-16 11:40] VITALS: BP 133/90; PULSE 67; TEMP 98.3
== END 2018-06-16 12:50 | disposition home or self-care (01) ==
LOC: CATHEP 09:53 → 3OBS 15:17 → CATHEP 06-16 12:50
PROVIDERS: ATTEND Internal Medicine Clinical Cardiac Electrophysiology
DX: I25.5 Ischemic cardiomyopathy (principal); Z00.6 Encounter for examination for normal comparison and control in clinical research program; I47.2 Ventricular tachycardia; Z45.018 Encounter for adjustment and management of other part of cardiac pacemaker; I44.2 Atrioventricular block, complete; I25.10 Atherosclerotic heart disease of native coronary artery without angina pectoris; I11.0 Hypertensive heart disease with heart failure; I50.22 Chronic systolic (congestive) heart failure; F17.210 Nicotine dependence, cigarettes, uncomplicated; I25.2 Old myocardial infarction; Z95.5 Presence of coronary angioplasty implant and graft; Z79.02 Long term (current) use of antithrombotics/antiplatelets; Z79.82 Long term (current) use of aspirin; Z79.51 Long term (current) use of inhaled steroids; Z79.899 Other long term (current) drug therapy
CPT/HCPCS: 94640 ×3; 33225; 33249; 33233; 71046; C1769 ×7; C1892; C1730; C1887; C1900; C1882; J0690 ×3; J2001; J0131; Q9966

== ENCOUNTER 2018-11-17 08:44 | Day surgery (SDC) | payer OTHER ==
[2018-11-15 14:42] VITALS: BMI 28.8
[~2018-11-17 08:44] MED LIST changes: -LIDOCAINE 1% 20 ML VIAL (10MG/ML) FOR IV START INTRADERMA PRN; -SODIUM CHLORIDE 0.9% 1,000 ML IV SCH; -ceFAZolin 1,000 MG in SODIUM CHLORIDE 0.9% IRRIGATIO 250 ML IRRIGATION ONE; -ceFAZolin IN SWFI 2 GM/20 ML SYRINGE IVP ONE
[2018-11-17 09:05] VITALS: TEMP 97.2
[2018-11-17] MEDS ORDERED: LIDOCAINE 1% INJ 10MG/ML (20 ML MDV) ONE (09:17)
[2018-11-17] MEDS ORDERED: GLUCAGON 1 MG/ML VIAL ONE (09:17)
[2018-11-17] MEDS ORDERED: PROPOFOL 10 MG/ML 20 ML VIAL IV ONE (09:17)
--- NOTE | 2018-11-17 09:20 | P.GSHP ---
History of Present Illness H&P Date: 11/17/18 Chief Complaint: GI bleed This a 48-year-old male presents today for colonoscopy. Patient has history of rectal bleeding. [facility] Past Medical History Past Medical History: Coronary Artery Disease (CAD), COPD, Hyperlipidemia, Hypertension, Myocardial Infarction ([place]) Additional Past Medical History / Comment(s): hemorrhoids, blood in stool, see Dr Stoll's H&P Last Myocardial Infarction Date:: 01/07/18 History of Any Multi-Drug Resistant Organisms: None Reported Past Surgical History: Heart Catheterization With Stent, Pacemaker Additional Past Surgical History / Comment(s): 2 cardiac stents, oral surgery, Past Anesthesia/Blood Transfusion Reactions: No Reported Reaction Date of Last Stent Placement:: 01/07/2018 Type of Cardiac Device: Permanent Pacemaker Device Placement Date:: 01/07/18 Smoking Status: Current every day smoker - Past Family History Mother Family Medical History: No Reported History Medications and Allergies Home Medications Medication Instructions Recorded Confirmed Type Aspirin 81 mg PO DAILY chew 01/09/18 11/15/18 Rx Atorvastatin [Lipitor] 80 mg PO HS tab 01/09/18 11/15/18 Rx Clopidogrel [Plavix] 75 mg PO DAILY #0 tab 01/09/18 11/15/18 Rx hydrALAZINE HCL [Apresoline] 50 mg PO TID 03/19/18 11/15/18 History Carvedilol 25 mg PO BID #180 tablet 06/15/18 11/15/18 Rx Docusate Sodium [Dok] 100 mg PO BID 06/15/18 11/15/18 History Acetaminophen [Tylenol Arthritis] 650 mg PO TID PRN 11/15/18 11/15/18 History Budesonide/Formoterol Fumarate 2 puff INHALATION BID 11/15/18 11/15/18 History [Symbicort 160-4.5 Mcg Inhaler] Ibuprofen [Motrin] 600 mg PO BID 11/15/18 11/15/18 History Ipratropium [place] [Atrovent Hfa] 2 puff INHALATION QID PRN 11/15/18 11/15/18 History Losartan [Cozaar] 150 mg PO HS 11/15/18 11/15/18 History cloNIDine HCL [Catapres] 0.2 mg PO BID 11/15/18 11/15/18 History Allergies Allergy/AdvReac Type Severity Reaction Status Date / Time No Known Allergies Allergy Verified 11/17/18 08:52 Surgical - Exam Vital Signs Temp Pulse Resp BP Pulse Ox 97.2 F L 70 17 187/118 98 11/17/18 09:04 11/17/18 09:04 11/17/18 09:04 11/17/18 09:04 11/17/18 09:04 - General well developed, well nourished, no distress - Eyes PERRL - ENT normal pinna - Neck no masses - Respiratory normal expansion - Cardiovascular Rhythm: regular - Abdomen Abdomen: soft, non tender Assessment and Plan Assessment: GI bleed. We'll perform colonoscopy.
--- NOTE | 2018-11-17 09:47 | P.OP ---
Date of Procedure: 11/17/18 Preoperative Diagnosis: GI bleed Postoperative Diagnosis: Internal hemorrhoids Colonic polyps Procedure(s) Performed: Colonoscopy Anesthesia: MAC Surgeon: Jimi Cordon Pathology: other (Rectal polyps, sigmoid colon polyp,) Condition: stable Disposition: PACU Description of Procedure: Patient's placed on the endoscopy table in the lateral position. He received IV sedation. Digital rectal exam was performed which revealed internal hemorrhoids. Flexible colonoscope was then placed patient anus passed throughout the entire colon. The ileocecal valve sutures. The cecum, ascending and transverse colon appeared normal. The descending colon appeared normal. In the sigmoid colon there was a small polyp seen this removed with the forceps. Another polyp was removed with snare. The scope was then brought back the rectum and another polyp was removed with snare. Scope was withdrawn and in the anus there were internal hemorrhoids noted. There is known to any active GI bleed. There is no source of bleeding. It was thought that his previous GI bleed was due to internal hemorrhoids.
[2018-11-17 09:58] VITALS: RESP 16
[2018-11-17] MEDS ORDERED: hydrALAZINE HCL 20 MG/ML 1 ML VIAL IVP STA (10:22)
[2018-11-17 10:44] VITALS: PULSE 67
[2018-11-17 11:15] VITALS: BP 188/125
== END 2018-11-17 11:29 | disposition home or self-care (01) ==
LOC: ORWHC2ENDO 08:44
PROVIDERS: ATTEND Surgery
DX: K63.5 Polyp of colon (principal); K62.1 Rectal polyp; K64.8 Other hemorrhoids; I25.10 Atherosclerotic heart disease of native coronary artery without angina pectoris; I10 Essential (primary) hypertension; I44.2 Atrioventricular block, complete; E78.5 Hyperlipidemia, unspecified; J44.9 Chronic obstructive pulmonary disease, unspecified; F17.200 Nicotine dependence, unspecified, uncomplicated; I25.2 Old myocardial infarction; Z95.0 Presence of cardiac pacemaker; Z95.5 Presence of coronary angioplasty implant and graft; Z79.82 Long term (current) use of aspirin; Z79.02 Long term (current) use of antithrombotics/antiplatelets; Z79.899 Other long term (current) drug therapy
CPT/HCPCS: 88305; 45380; 45385; J0360; J1610; J2001; J2704

== ENCOUNTER 2020-11-13 07:40 | Observation (INO) | payer OTHER ==
[2020-11-13] MEDS ORDERED: NITROGLYCERIN OINT 1 INCH/GM PACKET TOPICAL STA (08:14)
[2020-11-13] MEDS ORDERED: ASPIRIN 81 MG PO STA (08:14)
--- NOTE | 2020-11-13 08:24 | ED ---
General Adult HPI - General Chief complaint: Chest Pain Stated complaint: Chest Pain Time Seen by Provider: 11/13/20 07:50 Source: patient, RN notes reviewed, old records reviewed Mode of arrival: wheelchair Limitations: no limitations - History of Present Illness Initial comments: This a 50-year-old male who presents emergency Department with a past medical history of a previous heart attack with a pacemaker defibrillator placement, hypertension, high cholesterol. And patient continues to smoke. Patient states he started having chest pain yesterday over the left side of his chest that came and went. Patient describes it as an achiness. Patient denies any radiation of the pain. Patient denies any difficulty breathing or shortness of breath per patient denies any fever chills or cough per patient denies any diaphoresis. Patient denies any nausea. Patient denies abdominal pain. Patient states back pain. Patient denies headache patient denies numbness weakness or lightheadedness. Patient states he has been having some bright red blood per stool over the last few days. Patient denies any swelling to legs or calf tenderness - Related Data Home Medications Medication Instructions Recorded Confirmed Albuterol Inhaler [Ventolin Hfa 1 puff INHALATION RT-Q4H PRN 11/13/20 11/13/20 Inhaler] Cholecalciferol [Vitamin D3 (25 25 mcg PO DAILY 11/13/20 11/13/20 Mcg = 1000 Iu)] Isosorbide Mononitrate ER [Imdur] 30 mg PO DAILY 11/13/20 11/13/20 Losartan Potassium 100 mg PO DAILY 11/13/20 11/13/20 Multivits,Th W-Ca,Fe,Oth Min 1 tab PO DAILY 11/13/20 11/13/20 [Therapeutic M] Nitroglycerin Sl Tabs [Nitrostat] 0.4 mg SUBLINGUAL Q5M PRN 11/13/20 11/13/20 amLODIPine [Norvasc] 10 mg PO DAILY 11/13/20 11/13/20 hydrALAZINE HCL [Apresoline] 50 mg PO TID 11/13/20 11/13/20 Previous Rx's Medication Instructions Recorded Aspirin 81 mg PO DAILY chew 01/09/18 Atorvastatin [Lipitor] 80 mg PO HS tab 01/09/18 Clopidogrel [Plavix] 75 mg PO DAILY #0 tab 03/24/18 carvediloL [Carvedilol] 25 mg PO BID #180 tablet 06/15/18 Allergies Allergy/AdvReac Type Severity Reaction Status Date / Time Milk Containing Products AdvReac Nausea & Verified 11/13/20 08:36 [Dairy] Vomiting & Diarrhea Review of Systems ROS Statement: Those systems with pertinent positive or pertinent negative responses have been documented in the HPI. ROS Other: All systems not noted in ROS Statement are negative. Past Medical History Past Medical History: Coronary Artery Disease (CAD), COPD, Hyperlipidemia, Hypertension, Myocardial Infarction ([place]) Additional Past Medical History / Comment(s): hemorrhoids, blood in stool, Last Myocardial Infarction Date:: 01/07/18 History of Any Multi-Drug Resistant Organisms: None Reported Past Surgical History: Heart Catheterization With Stent, Pacemaker Additional Past Surgical History / Comment(s): 2 cardiac stents, oral surgery, Past Anesthesia/Blood Transfusion Reactions: No Reported Reaction Date of Last Stent Placement:: 01/07/2018 Type of Cardiac Device: Permanent Pacemaker Device Placement Date:: 01/07/18 Past Psychological History: Depression Smoking Status: Current every day smoker Past Alcohol Use History: None Reported Past Drug Use History: Marijuana - Past Family History Mother Family Medical History: No Reported History General Exam - General Exam Comments Initial Comments: GENERAL: Patient is well-developed and well-nourished. Patient is nontoxic and well- hydrated and is in no acute distress. ENT: Neck is soft and supple. No significant lymphadenopathy is noted. Oropharynx is clear. Moist mucous membranes. Neck has full range of motion without eliciting any pain. EYES: The sclera were anicteric and conjunctiva were pink and moist. Extraocular movements were intact and pupils were equal round and reactive to light. Eyelids were unremarkable. PULMONARY: Unlabored respirations. Good breath sounds bilaterally. No audible rales rhonchi or wheezing was noted. CARDIOVASCULAR: There is a regular rate and rhythm without any murmurs gallops or rubs. ABDOMEN: Soft and nontender with normal bowel sounds. No palpable organomegaly was noted. There is no palpable pulsatile mass. SKIN: Skin is clear with no lesions or rashes and otherwise unremarkable. NEUROLOGIC: Patient is alert and oriented x3. Cranial nerves II through XII are grossly intact. Motor and sensory are also intact. Normal speech, volume and content. Symmetrical smile. MUSCULOSKELETAL: Normal extremities with adequate strength and full range of motion. LYMPHATICS: No significant lymphadenopathy is noted PSYCHIATRIC: Normal psychiatric evaluation. Limitations: no limitations Course Vital Signs 11/13/20 11/13/20 11/13/20 07:46 08:30 09:00 Temperature 99.2 F Pulse Rate 81 75 71 Respiratory 18 18 18 Rate Blood Pressure 126/86 128/96 133/96 O2 Sat by Pulse 98 98 98 Oximetry Medical Decision Making - Medical Decision Making EKG shows a paced rhythm at 77 bpm IN interval 260 QRS is 208 QT interval 470 QTC is 531. Chest x-ray shows no acute abnormality. I did not start the patient on heparin secondary to the fact that he's had bright red blood rectum. - Lab Data Result diagrams: 11/13/20 08:15 11/13/20 08:15 Lab Results 11/13/20 11/13/20 11/13/20 Range/Units 08:15 08:15 08:15 WBC 6.5 (3.8-10.6) k/uL RBC 4.88 (4.30-5.90) m/uL Hgb 14.4 (13.0-17.5) gm/dL Hct 42.8 (39.0-53.0) % MCV 87.6 (80.0-100.0) fL MCH 29.6 (25.0-35.0) pg MCHC 33.8 (31.0-37.0) g/dL RDW 14.1 (11.5-15.5) % Plt Count 230 (150-450) k/uL MPV 8.3 Neutrophils % 54 % Lymphocytes % 32 % Monocytes % 8 % Eosinophils % 4 % Basophils % 1 % Neutrophils # 3.5 (1.3-7.7) k/uL Lymphocytes # 2.1 (1.0-4.8) k/uL Monocytes # 0.5 (0-1.0) k/uL Eosinophils # 0.2 (0-0.7) k/uL Basophils # 0.0 (0-0.2) k/uL PT 10.3 (9.0-12.0) sec INR 1.0 (<1.2) APTT 22.7 (22.0-30.0) sec Sodium 139 (137-145) mmol/L Potassium 3.9 (3.5-5.1) mmol/L Chloride 107 (98-107) mmol/L Carbon Dioxide 25 (22-30) mmol/L Anion Gap 7 mmol/L BUN 17 (9-20) mg/dL Creatinine 1.08 (0.66-1.25) mg/dL Est GFR (CKD-EPI)AfAm >90 (>60 ml/min/1.73 sqM) Est GFR (CKD-EPI)NonAf 79 (>60 ml/min/1.73 sqM) Glucose 130 H (74-99) mg/dL Calcium 9.7 (8.4-10.2) mg/dL Magnesium 1.8 (1.6-2.3) mg/dL Total Bilirubin 0.7 (0.2-1.3) mg/dL AST 32 (17-59) U/L ALT 32 (4-49) U/L Alkaline Phosphatase 122 (38-126) U/L Troponin I (0.000-0.034) ng/mL Total Protein 8.2 (6.3-8.2) g/dL Albumin 4.2 (3.5-5.0) g/dL 11/13/20 Range/Units 08:15 WBC (3.8-10.6) k/uL RBC (4.30-5.90) m/uL Hgb (13.0-17.5) gm/dL Hct (39.0-53.0) % MCV (80.0-100.0) fL MCH (25.0-35.0) pg MCHC (31.0-37.0) g/dL RDW (11.5-15.5) % Plt Count (150-450) k/uL MPV Neutrophils % % Lymphocytes % % Monocytes % % Eosinophils % % Basophils % % Neutrophils # (1.3-7.7) k/uL Lymphocytes # (1.0-4.8) k/uL Monocytes # (0-1.0) k/uL Eosinophils # (0-0.7) k/uL Basophils # (0-0.2) k/uL PT (9.0-12.0) sec INR (<1.2) APTT (22.0-30.0) sec Sodium (137-145) mmol/L Potassium (3.5-5.1) mmol/L Chloride (98-107) mmol/L Carbon Dioxide (22-30) mmol/L Anion Gap mmol/L BUN (9-20) mg/dL Creatinine (0.66-1.25) mg/dL Est GFR (CKD-EPI)AfAm (>60 ml/min/1.73 sqM) Est GFR (CKD-EPI)NonAf (>60 ml/min/1.73 sqM) Glucose (74-99) mg/dL Calcium (8.4-10.2) mg/dL Magnesium (1.6-2.3) mg/dL Total Bilirubin (0.2-1.3) mg/dL AST (17-59) U/L ALT (4-49) U/L Alkaline Phosphatase (38-126) U/L Troponin I <0.012 (0.000-0.034) ng/mL Total Protein (6.3-8.2) g/dL Albumin (3.5-5.0) g/dL Disposition Clinical Impression: Unstable angina pectoris, GI bleeding Disposition: ADMITTED IP TO THIS [facility] Referrals: Jordon Busch MD [STAFF PHYSICIAN] - 1-2 days Time of Disposition: 09:26
[2020-11-13 08:34] LABS: Basophils % (A) 1 %; Eosinophils # (A) 0.2 k/uL (0-0.7); Eosinophils % (A) 4 %; HCT 42.8 % (39.0-53.0); HGB 14.4 gm/dL (13.0-17.5); Lymphocytes # (A) 2.1 k/uL (1.0-4.8); Lymphocytes % (A) 32 %; MCH 29.6 pg (25.0-35.0); MCHC 33.8 g/dL (31.0-37.0); MCV 87.6 fL (80.0-100.0); Mean Platelet Volume 8.3; Monocytes # (A) 0.5 k/uL (0-1.0); Monocytes % (A) 8 %; Neutrophils # (A) 3.5 k/uL (1.3-7.7); Neutrophils % (A) 54 %; Platelet Count 230 k/uL (150-450); RBC 4.88 m/uL (4.30-5.90); RDW 14.1 % (11.5-15.5); WBC 6.5 k/uL (3.8-10.6)
--- NOTE | 2020-11-13 08:34 | XR ---
EXAMINATION TYPE: XR chest 2V DATE OF EXAM: 11/13/2020 COMPARISON: 06/16/2018 HISTORY: Shortness of breath TECHNIQUE: Frontal and lateral views of the chest are obtained. FINDINGS: Scattered senescent parenchymal changes noted. Hyperinflation compatible with COPD. No evidence for infiltrate. No evidence for atelectasis. Heart size is stable. Mediastinal structures are stable and grossly unremarkable. No evidence for hilar prominence. Degenerative changes dorsal spine. IMPRESSION: 1. No evidence for acute pulmonary disease.
[2020-11-13 08:44] LABS: ALT 32 U/L (4-49); AST 32 U/L (17-59); African American GFR (CKD) >90 (>60 ml/min/1.73 sqM); Albumin 4.2 g/dL (3.5-5.0); Alkaline Phosphatase 122 U/L (38-126); Anion Gap 7 mmol/L; Blood Urea Nitrogen 17 mg/dL (9-20); Calcium 9.7 mg/dL (8.4-10.2); Carbon Dioxide 25 mmol/L (22-30); Chloride 107 mmol/L (98-107); Glucose 130 mg/dL (74-99); Magnesium 1.8 mg/dL (1.6-2.3); Non-African American GFR(CKD) 79 (>60 ml/min/1.73 sqM); Potassium 3.9 mmol/L (3.5-5.1); Sodium 139 mmol/L (137-145); Total Bilirubin 0.7 mg/dL (0.2-1.3); Total Protein 8.2 g/dL (6.3-8.2)
[2020-11-13 08:47] LABS: Partial Thromboplastin Time 22.7 sec (22.0-30.0); Prothrombin Time 10.3 sec (9.0-12.0)
[2020-11-13] MEDS ORDERED: NITROGLYCERIN SL TABS 0.4 MG TAB SUBLINGUAL PRN (09:26)
[2020-11-13] MEDS ORDERED: ALBUTEROL NEBULIZED 2.5 MG/3 ML INHALATION PRN (10:13)
--- NOTE | 2020-11-13 10:18 | P.HPIM ---
History of Present Illness H&P Date: 11/13/20 Chief Complaint: Chest pain This is a 50-year-old male with complex past medical history noted below significant for coronary artery disease with prior stent placement, severe ischemic cardiomyopathy, and history of complete heart block status post ICD implantation who presented to the emergency room with chest pain. Patient said that his pain started yesterday and it was mostly in his left chest right underneath his defibrillator. He described his pain as sharp and 8 out of 10 in severity. His pain was not associated with diaphoresis, shortness of breath, or dizziness. Patient said that he continues to smoke approximately 2-3 cigarettes per day. He denies any shocks from the defibrillator. He also reported that he did not see his primary care physician since he got out of incarceration in September and ran out of his Imdur that he didn't take for several days. Patient is also complaining of rectal bleed. He said yesterday he had a large bowel movement with a large amount of bright red blood. He denies any abdominal pain. He is not sure if he had bleeding before yesterday as he was not paying attention to his stool. Patient has a history of internal hemorrhoids and had a colonoscopy couple of years ago showing no other source of bleeding. Patient denies alcohol use. No bowel movement since yesterday. Patient was evaluated in the ER and a 12-lead EKG showed a paced rhythm. Initial troponin was negative. His chest pain-free at this time. X-ray with no acute findings. He will be admitted to the hospital for further evaluation. Review of Systems Review of system: 14 points review of systems were obtained and were negative except to what were mentioned in the HPI. Past Medical History Past Medical History: Coronary Artery Disease (CAD), COPD, Hyperlipidemia, Hype rtension, Myocardial Infarction ([place]) Additional Past Medical History / Comment(s): hemorrhoids, blood in stool, Last Myocardial Infarction Date:: 01/07/18 History of Any Multi-Drug Resistant Organisms: None Reported Past Surgical History: Heart Catheterization With Stent, Pacemaker Additional Past Surgical History / Comment(s): 2 cardiac stents, oral surgery, Past Anesthesia/Blood Transfusion Reactions: No Reported Reaction Date of Last Stent Placement:: 01/07/2018 Type of Cardiac Device: Permanent Pacemaker Device Placement Date:: 01/07/18 Past Psychological History: Depression Smoking Status: Current every day smoker Past Alcohol Use History: None Reported Past Drug Use History: Marijuana - Past Family History Mother Family Medical History: No Reported History Medications and Allergies Home Medications Medication Instructions Recorded Confirmed Type Aspirin 81 mg PO DAILY chew 01/09/18 11/13/20 Rx Atorvastatin [Lipitor] 80 mg PO HS tab 01/09/18 11/13/20 Rx Clopidogrel [Plavix] 75 mg PO DAILY #0 tab 01/09/18 11/13/20 Rx carvediloL [Carvedilol] 25 mg PO BID #180 tablet 06/15/18 11/13/20 Rx Albuterol Inhaler [Ventolin Hfa 1 puff INHALATION RT-Q4H PRN 11/13/20 11/13/20 History Inhaler] Cholecalciferol [Vitamin D3 (25 25 mcg PO DAILY 11/13/20 11/13/20 History Mcg = 1000 Iu)] Isosorbide Mononitrate ER [Imdur] 30 mg PO DAILY 11/13/20 11/13/20 History Losartan Potassium 100 mg PO DAILY 11/13/20 11/13/20 History Multivits,Th W-Ca,Fe,Oth Min 1 tab PO DAILY 11/13/20 11/13/20 History [Therapeutic M] Nitroglycerin Sl Tabs [Nitrostat] 0.4 mg SUBLINGUAL Q5M PRN 11/13/20 11/13/20 History amLODIPine [Norvasc] 10 mg PO DAILY 11/13/20 11/13/20 History hydrALAZINE HCL [Apresoline] 50 mg PO TID 11/13/20 11/13/20 History Allergies Allergy/AdvReac Type Severity Reaction Status Date / Time Milk Containing Products AdvReac Nausea & Verified 11/13/20 08:36 [Dairy] Vomiting & Diarrhea Physical Exam Vitals: Vital Signs Temp Pulse Resp BP Pulse Ox 11/13/20 09:00 71 18 133/96 98 11/13/20 08:30 75 18 128/96 98 11/13/20 07:46 99.2 F 81 18 126/86 98 Intake and Output 11/12/20 11/13/20 11/13/20 22:59 06:59 14:59 Other: Weight 106.594 kg General: The patient is awake and alert, in no distress Eye: there is normal conjunctiva bilaterally. Neck: The neck is supple, there is no JVD. Cardiovascular: Normal S1-S2, no S3-S4, no murmurs. Respiratory: Lungs clear to auscultation bilaterally Gastrointestinal: Abdomen is soft, nontender Musculoskeletal: There is no pedal edema. Neurological:. Speech is normal. Skin: Skin is warm and dry Results CBC & Chem 7: 11/13/20 08:15 11/13/20 08:15 Labs: Abnormal Lab Results - Last 24 Hours (Table) 11/13/20 Range/Units 08:15 Glucose 130 H (74-99) mg/dL Assessment and Plan Assessment: 1. Chest pain, with typical and atypical features. 12-lead EKG showed a paced rhythm. Initial troponin negative. Cardiology consulted for further evalua tion. We will continue telemetry monitoring. Trend troponin. Chest pain may be worsened as patient ran out of Imdur for the past few days 2. Rectal bleed, now resolved. Probably attributed to history of internal hemorrhoids. Colonoscopy couple of years ago with no other source of bleeding. Neurosurgery consulted for further evaluation. Hemoglobin stable. We will continue to monitor closely. 3. Coronary artery disease with prior stent placement to LAD 4. History of complete heart block 5. Underlying ischemic cardiomyopathy status post ICD implantation (pacemaker upgraded to ICD in 2018) 6. Essential hypertension, blood pressure within acceptable range 7. Hyperlipidemia on Lipitor 8. DVT prophylaxis with SCDs 9. CODE STATUS: Patient would like to be full code Today, I reviewed his medication list and lab work results. We will monitor CBC every 12 hours. Resume home medications. Appreciate revenue cycle consultant's recommendations.
--- NOTE | 2020-11-13 12:53 | ECHOF ---
Referral Reason:LV function MEASUREMENTS -------- HEIGHT: 182.9 cm WEIGHT: 106.6 kg BP: RVIDd: 2.4 cm (< 3.3) IVSd: 1.7 cm (0.6 - 1.1) LVIDd: 5.5 cm (3.9 - 5.3) LVPWd: 1.5 cm (0.6 - 1.1) IVSs: 2.3 cm LVIDs: 4.8 cm LVPWs: 1.6 cm LAESV Index (A-L): 23.50 ml/m IVSd: 3.4 cm (0.6 - 1.1) Ao Diam: 3.6 cm (2.0 - 3.7) AV Cusp: 2.2 cm (1.5 - 2.6) LA Diam: 2.7 cm (2.7 - 3.8) MV EXCURSION: 13.883 mm (> 18.000) MV EF SLOPE: 50 mm/s (70 - 150) EPSS: 1.6 cm MV E Enzo: 0.39 m/s MV DecT: 304 ms MV A Enzo: 0.49 m/s MV E/A Ratio: 0.80 RAP: 5.00 mmHg RVSP: 12.51 mmHg FINDINGS -------- Sinus rhythm. Pacerwire seen in RV and RA. This was a technically difficult study with suboptimal views. The left ventricular size is normal. There is moderate concentric left ventricular hypertrophy. O verall left ventricular systolic function is severely impaired with, an EF between 25 - 30 %. Basal inferior LV wall motion is hypokinetic. Basal inferoseptal LV wall motion is hypokinetic. Mid inferior LV wall motion is hypokinetic. Mid inferoseptal LV wall motion is hypokinetic. Apical inferior LV wall motion is hypokinetic. The right ventricle is normal in size. Normal LA size by volume 22+/-6 ml/m2. The right atrial size is normal. xx ml of Lumason was utilized for enhancement of images. The aortic valve is trileaflet, and appears structurally normal. No aortic stenosis or regurgitation. The mitral valve is normal. Mild mitral regurgitation is present. The tricuspid valve appears structurally normal. Trace tricuspid regurgitation present. Right sarah tricular systolic pressure is normal at < 35 mmHg. There is no pulmonic regurgitation present. The aortic root size is normal. IVC Not well visulized. There is no pericardial effusion. CONCLUSIONS -------- 1. This was a technically difficult study with suboptimal views. 2. There is moderate concentric left ventricular hypertrophy. 3. Overall left ventricular systolic function is severely impaired with, an EF between 25 - 30 %. 4. Basal inferior LV wall motion is hypokinetic. 5. Basal inferoseptal LV wall motion is hypokinetic. 6. Mid inferior LV wall motion is hypokinetic. 7. Mid inferoseptal LV wall motion is hypokinetic. 8. Apical inferior LV wall motion is hypokinetic. 9. Normal LA size by volume 22+/-6 ml/m2. 10. The aortic valve is trileaflet, and appears structurally normal. No aortic stenosis or regurgitat ion. 11. Mild mitral regurgitation is present. 12. Trace tricuspid regurgitation present. 13. There is no pericardial effusion. QUARTER LINING SMOOTHER: Hillary Peters RDCS
--- NOTE | 2020-11-13 14:11 | P.CRDCN ---
History of Present Illness Consult date: 11/13/20 History of present illness: CHIEF COMPLAINT: Chest pain HISTORY OF PRESENT ILLNESS: This is a 50-year-old male with a past medical history significant for coronary artery disease with previous stent to the LAD, ischemic cardiomyopathy with ICD implantation, hypertension, hyperlipidemia, and nicotine dependence. Patient follows in the office with Dr. Zarco. We have been asked to see the patient in consultation for chest pain. Patient reports he began having chest pain yesterday while he was driving. He states the pain was in the left upper chest. He denies any radiation of the pain. He denies any shortness of breath. He states the pain he experienced yesterday was not the same type of pain he experienced when he had his stent in 2018. He states the pain was not worse with deep inspiration or movement. He is currently chest pain free at the time of examination. Patient does report having an episode of bright red blood with a bowel movement a couple days ago. Patient reports he has a history of hemorrhoids. DIAGNOSTICS: EKG reveals sinus mechanism with no signs of acute ischemia Chest xray negative for acute process Laboratory data: WBC 6.5. Hemoglobin 14.4. Platelet count 230. Sodium 139. Potassium 3.9. BUN 17. Creatinine 1.08. Troponin negative 2. Current home cardiac medications include hydralazine 50 mg 3 times a day, carvedilol 25 mg twice a day, Norvasc 10 mg daily, losartan 100 mg daily, Imdur 30 mg daily, Plavix 75 mg daily, Lipitor 80 mg daily, aspirin 81 mg daily REVIEW OF SYSTEMS: At the time of my exam: CONSTITUTIONAL: Denies fever or chills. HEENT: Denies blurred vision, vision changes, or eye pain. Denies hemoptysis CARDIOVASCULAR: Denies chest pain, orthopnea, PND or palpitations RESPIRATORY: No shortness of breath. GASTROINTESTINAL: Denies abdominal pain. Denies nausea or vomiting. HEMATOLOGIC: Denies bleeding disorders. GENITOURINARY: Denies any blood in urine. SKIN: Denies pruitis. Denies rash. PHYSICAL EXAM: VITAL SIGNS: Reviewed. GENERAL: Well-developed in no acute distress. HEENT: Head is normocephalic. Pupils are equal, round. Sclerae anicteric. Mucous membranes of the mouth are moist. Neck supple. No JVD or thyromegaly LUNGS: Respirations even and unlabored. Lungs essentially clear to auscultation bilaterally. HEART: Regular rate and rhythm. S1 and S2 heard. ABDOMEN: Soft. Nondistended. Nontender. EXTREMITIES: Normal range of motion. No clubbing or cyanosis. Peripheral pulses intact. No lower extremity edema NEUROLOGIC: Awake and alert. Oriented x 3. ASSESSMENT: Chest pain Coronary artery disease with previous PCI to LAD, 2018 Ischemic cardiomyopathy, ejection fraction 25-30%, status post biventricular ICD in 2018 Hypertension Hyperlipidemia Nicotine dependence PLAN: Continue home cardiac medications Obtain 2-D echo to assess cardiac structure and function Continue to trend troponins Patient will be tentatively scheduled for Lexiscan stress test tomorrow Further recommendations pending patient's course Nurse practitioner note has been reviewed by physician. Signing provider agrees with the documented findings, assessment, and plan of care. Past Medical History Past Medical History: Coronary Artery Disease (CAD), Heart Failure, Hyperlipi demia, Hypertension, Myocardial Infarction ([place]) Additional Past Medical History / Comment(s): 3rd degree heart block, ischemic cardiomyopathy, nonsustained Vtach, pt has AICD/pacer, hemorrhoids, lower GI bleed, benign colon polyp. Last Myocardial Infarction Date:: 01/07/18 History of Any Multi-Drug Resistant Organisms: None Reported Past Surgical History: Heart Catheterization With Stent, Pacemaker Additional Past Surgical History / Comment(s): 2018 Pacer then AICD/ PCI with stent, colonoscopy/benign polypectomy, oral surgery for teeth Past Anesthesia/Blood Transfusion Reactions: No Reported Reaction Date of Last Stent Placement:: 01/07/2018 Type of Cardiac Device: Permanent Pacemaker, AICD Device Placement Date:: 01/07/18 Smoking Status: Current some day smoker - Past Family History Mother History Unknown: Yes Family Medical History: No Reported History Additional Family Medical History / Comment(s): Back problems. Father History Unknown: Yes Medications and Allergies Home Medications Medication Instructions Recorded Confirmed Type Aspirin 81 mg PO DAILY chew 01/09/18 11/13/20 Rx Atorvastatin [Lipitor] 80 mg PO HS tab 01/09/18 11/13/20 Rx Clopidogrel [Plavix] 75 mg PO DAILY #0 tab 01/09/18 11/13/20 Rx carvediloL [Carvedilol] 25 mg PO BID #180 tablet 06/15/18 11/13/20 Rx Albuterol Inhaler [Ventolin Hfa 1 puff INHALATION RT-Q4H PRN 11/13/20 11/13/20 History Inhaler] Cholecalciferol [Vitamin D3 (25 25 mcg PO DAILY 11/13/20 11/13/20 History Mcg = 1000 Iu)] Isosorbide Mononitrate ER [Imdur] 30 mg PO DAILY 11/13/20 11/13/20 History Losartan Potassium 100 mg PO DAILY 11/13/20 11/13/20 History Multivits,Th W-Ca,Fe,Oth Min 1 tab PO DAILY 11/13/20 11/13/20 History [Therapeutic M] Nitroglycerin Sl Tabs [Nitrostat] 0.4 mg SUBLINGUAL Q5M PRN 11/13/20 11/13/20 History amLODIPine [Norvasc] 10 mg PO DAILY 11/13/20 11/13/20 History hydrALAZINE HCL [Apresoline] 50 mg PO TID 11/13/20 11/13/20 History Allergies Allergy/AdvReac Type Severity Reaction Status Date / Time Milk Containing Products AdvReac Nausea & Verified 11/13/20 08:36 [Dairy] Vomiting & Diarrhea Physical Exam Vitals: Vital Signs Temp Pulse Pulse Resp BP BP Pulse Ox 11/13/20 10:39 98.7 F 65 18 135/89 96 11/13/20 09:00 71 18 133/96 98 11/13/20 08:30 75 18 128/96 98 11/13/20 07:46 99.2 F 81 18 126/86 98 Intake and Output 11/12/20 11/13/20 11/13/20 22:59 06:59 14:59 Other: Voiding Method Toilet Weight 106.594 kg Results 11/13/20 08:15 11/13/20 08:15 Cardiac Enzymes 11/13/20 11/13/20 11/13/20 Range/Units 08:15 08:15 10:55 AST 32 (17-59) U/L Troponin I <0.012 <0.012 (0.000-0.034) ng/mL Coagulation 11/13/20 Range/Units 08:15 PT 10.3 (9.0-12.0) sec APTT 22.7 (22.0-30.0) sec CBC 11/13/20 Range/Units 08:15 WBC 6.5 (3.8-10.6) k/uL RBC 4.88 (4.30-5.90) m/uL Hgb 14.4 (13.0-17.5) gm/dL Hct 42.8 (39.0-53.0) % Plt Count 230 (150-450) k/uL Comprehensive Metabolic Panel 11/13/20 Range/Units 08:15 Sodium 139 (137-145) mmol/L Potassium 3.9 (3.5-5.1) mmol/L Chloride 107 (98-107) mmol/L Carbon Dioxide 25 (22-30) mmol/L BUN 17 (9-20) mg/dL Creatinine 1.08 (0.66-1.25) mg/dL Glucose 130 H (74-99) mg/dL Calcium 9.7 (8.4-10.2) mg/dL AST 32 (17-59) U/L ALT 32 (4-49) U/L Alkaline Phosphatase 122 (38-126) U/L Total Protein 8.2 (6.3-8.2) g/dL Albumin 4.2 (3.5-5.0) g/dL Current Medications Generic Name Dose Route Start Last Admin Trade Name Freq PRN Reason Stop Dose Admin Albuterol Sulfate 2.5 mg 11/13/20 10:13 Albuterol Nebulized 2.5 Mg/3 Ml INHALATION RT-Q4H PRN Shortness Of Breath Amlodipine Besylate 10 mg 11/14/20 09:00 Amlodipine 10 Mg Tab PO DAILY [facility] Aspirin 81 mg 11/14/20 09:00 Aspirin 81 Mg PO DAILY [facility] Atorvastatin Calcium 80 mg 11/13/20 21:00 Atorvastatin 80 Mg Tab PO HS [facility] Carvedilol 25 mg 11/13/20 17:30 Carvedilol 12.5 Mg Tab PO AC-BID [facility] Clopidogrel Bisulfate 75 mg 11/14/20 09:00 Clopidogrel 75 Mg Tab PO DAILY [facility] Hydralazine HCl 50 mg 11/13/20 16:00 Hydralazine Hcl 50 Mg Tab PO TID [facility] Isosorbide Mononitrate 30 mg 11/14/20 09:00 Isosorbide Mononitrate Er 30 Mg Tab.Er.24h PO DAILY [facility] Losartan Potassium 100 mg 11/14/20 09:00 Losartan 50 Mg Tab PO DAILY [facility] Multivitamins 1 each 11/14/20 09:00 Multivitamins, Thera 1 Each Tab PO DAILY [facility] Nitroglycerin 0.4 mg 11/13/20 09:26 Nitroglycerin Sl Tabs 0.4 Mg Tab SUBLINGUAL Q5M PRN Chest Pain Nitroglycerin 1 inch 11/13/20 12:00 Nitroglycerin Oint 1 Inch/Gm Packet TOPICAL Q6HR [facility] Intake and Output 11/12/20 11/13/20 11/13/20 22:59 06:59 14:59 Other: Voiding Method Toilet Weight 106.594 kg Patient Weight 11/14/20 06:59 Weight 106.594 kg 11/13/20 08:15 11/13/20 08:15
--- NOTE | 2020-11-13 14:20 | P.GSCN ---
History of Present Illness Consult date: 11/13/20 History of present illness: CHIEF COMPLAINT: Chest pain HISTORY OF PRESENT ILLNESS: This is a 50-year-old male with past medical history of coronary artery disease with prior cardiac stents on Plavix, severe ischemic cardiomyopathy and history of complete heart block status post ICD implantation, myocardial infarction and nicotine dependence. He presented to the emergency room with complaints of chest pain. He reports pain mostly on the left side of his chest. He is being followed by cardiology. Troponins are negative. And is scheduled for stress test tomorrow. EKG had shown a paced rhythm. Patient had blood per rectum. He reports having bleeding when he has bowel movements. He's noticed this for the past 2 days. He denies any abdominal pain. He does have prior history of internal hemorrhoids. Patient's last colonoscopy was 11/17/2018 with internal hemorrhoids and colonic polyps. PAST MEDICAL HISTORY: See list. PAST SURGICAL HISTORY: See list. MEDICATIONS: See list. ALLERGIES: See list. SOCIAL HISTORY: No illicit drug use. REVIEW OF SYSTEMS: CONSTITUTIONAL: Denies fever or chills. HEENT: Denies blurred vision, vision changes, or eye pain. Denies hemoptysis CARDIOVASCULAR: Denies chest pain or pressure. RESPIRATORY: No shortness of breath. GASTROINTESTINAL: See HPI for pertinent findings HEMATOLOGIC: Denies bleeding disorders. GENITOURINARY: Denies any blood in urine or increased urinary frequency. SKIN: Denies pruitis. Denies rash. PHYSICAL EXAM: VITAL SIGNS: Reviewed GENERAL: Well-developed in no acute distress. HEENT: No sclera icterus. Extraocular movements grossly intact. Moist buccal mucosa. Head is atraumatic, normocephalic. No nasal drainage. ABDOMEN: Soft. Nondistended. Nontender NEUROLOGIC: Alert and oriented. Cranial nerves II through XII grossly intact. LABORATORY DATA: WBC 6.5 hemoglobin 14.4 Troponin negative 2 IMAGING: ASSESSMENT: 1. Rectal bleeding with a known history of internal hemorrhoids. Stable hemoglobin 2. Chest pain, cardiac workup in progress. Patient scheduled for stress test tomorrow PLAN: -Recommend colonoscopy when patient is medically stable and cleared by cardiology -Hold Plavix for anticipation of possible colonoscopy on -Continue to monitor for any signs or symptoms of bleeding. We'll monitor hemoglobin. Thank you for this consultation Physician Private Branch Exchange Service Advisor note has been reviewed by physician. Signing provider agrees with the documented findings, assessment, and plan of care. Past Medical History Past Medical History: Coronary Artery Disease (CAD), Heart Failure, Hyperlipidemia, Hypertension, Myocardial Infarction ([place]) Additional Past Medical History / Comment(s): 3rd degree heart block, ischemic cardiomyopathy, nonsustained Vtach, pt has AICD/pacer, hemorrhoids, lower GI bleed, benign colon polyp. Last Myocardial Infarction Date:: 01/07/18 History of Any Multi-Drug Resistant Organisms: None Reported Past Surgical History: Heart Catheterization With Stent, Pacemaker Additional Past Surgical History / Comment(s): 2018 Pacer then AICD/ PCI with stent, colonoscopy/benign polypectomy, oral surgery for teeth Past Anesthesia/Blood Transfusion Reactions: No Reported Reaction Date of Last Stent Placement:: 01/07/2018 Type of Cardiac Device: Permanent Pacemaker, AICD Device Placement Date:: 01/07/18 Smoking Status: Current some day smoker - Past Family History Mother History Unknown: Yes Family Medical History: No Reported History Additional Family Medical History / Comment(s): Back problems. Father History Unknown: Yes Medications and Allergies Home Medications Medication Instructions Recorded Confirmed Type Aspirin 81 mg PO DAILY chew 01/09/18 11/13/20 Rx Atorvastatin [Lipitor] 80 mg PO HS tab 01/09/18 11/13/20 Rx Clopidogrel [Plavix] 75 mg PO DAILY #0 tab 01/09/18 11/13/20 Rx carvediloL [Carvedilol] 25 mg PO BID #180 tablet 06/15/18 11/13/20 Rx Albuterol Inhaler [Ventolin Hfa 1 puff INHALATION RT-Q4H PRN 11/13/20 11/13/20 History Inhaler] Cholecalciferol [Vitamin D3 (25 25 mcg PO DAILY 11/13/20 11/13/20 History Mcg = 1000 Iu)] Isosorbide Mononitrate ER [Imdur] 30 mg PO DAILY 11/13/20 11/13/20 History Losartan Potassium 100 mg PO DAILY 11/13/20 11/13/20 History Multivits,Th W-Ca,Fe,Oth Min 1 tab PO DAILY 11/13/20 11/13/20 History [Therapeutic M] Nitroglycerin Sl Tabs [Nitrostat] 0.4 mg SUBLINGUAL Q5M PRN 11/13/20 11/13/20 History amLODIPine [Norvasc] 10 mg PO DAILY 11/13/20 11/13/20 History hydrALAZINE HCL [Apresoline] 50 mg PO TID 11/13/20 11/13/20 History Allergies Allergy/AdvReac Type Severity Reaction Status Date / Time Milk Containing Products AdvReac Nausea & Verified 11/13/20 08:36 [Dairy] Vomiting & Diarrhea Surgical - Exam Vital Signs Temp Pulse Resp BP Pulse Ox 99.2 F 81 18 126/86 98 11/13/20 07:46 11/13/20 07:46 11/13/20 07:46 11/13/20 07:46 11/13/20 07:46 Results - Labs 11/13/20 08:15 11/13/20 08:15 Abnormal Lab Results - Last 24 Hours (Table) 11/13/20 Range/Units 08:15 Glucose 130 H (74-99) mg/dL Diabetes panel 11/13/20 Range/Units 08:15 Sodium 139 (137-145) mmol/L Potassium 3.9 (3.5-5.1) mmol/L Chloride 107 (98-107) mmol/L Carbon Dioxide 25 (22-30) mmol/L BUN 17 (9-20) mg/dL Creatinine 1.08 (0.66-1.25) mg/dL Glucose 130 H (74-99) mg/dL Calcium 9.7 (8.4-10.2) mg/dL AST 32 (17-59) U/L ALT 32 (4-49) U/L Alkaline Phosphatase 122 (38-126) U/L Total Protein 8.2 (6.3-8.2) g/dL Albumin 4.2 (3.5-5.0) g/dL Calcium panel 11/13/20 Range/Units 08:15 Calcium 9.7 (8.4-10.2) mg/dL Albumin 4.2 (3.5-5.0) g/dL Pituitary panel 11/13/20 Range/Units 08:15 Sodium 139 (137-145) mmol/L Potassium 3.9 (3.5-5.1) mmol/L Chloride 107 (98-107) mmol/L Carbon Dioxide 25 (22-30) mmol/L BUN 17 (9-20) mg/dL Creatinine 1.08 (0.66-1.25) mg/dL Glucose 130 H (74-99) mg/dL Calcium 9.7 (8.4-10.2) mg/dL Adrenal panel 11/13/20 Range/Units 08:15 Sodium 139 (137-145) mmol/L Potassium 3.9 (3.5-5.1) mmol/L Chloride 107 (98-107) mmol/L Carbon Dioxide 25 (22-30) mmol/L BUN 17 (9-20) mg/dL Creatinine 1.08 (0.66-1.25) mg/dL Glucose 130 H (74-99) mg/dL Calcium 9.7 (8.4-10.2) mg/dL Total Bilirubin 0.7 (0.2-1.3) mg/dL AST 32 (17-59) U/L ALT 32 (4-49) U/L Alkaline Phosphatase 122 (38-126) U/L Total Protein 8.2 (6.3-8.2) g/dL Albumin 4.2 (3.5-5.0) g/dL
[2020-11-13] MEDS: NITROGLYCERIN OINT 1 INCH/GM PACKET TOPICAL SCH ×2 (17:23→20:53)
[2020-11-13] MEDS: carvediloL 12.5 MG TAB PO SCH (17:35)
[2020-11-13] MEDS: hydrALAZINE HCL 50 MG TAB PO SCH ×2 (17:36→20:52)
[2020-11-13] MEDS ORDERED: ATORVASTATIN 80 MG TAB PO SCH (21:00)
[2020-11-14 01:07] VITALS: TEMP 98.2
[2020-11-14 04:37] LABS: Basophils % (A) 1 %; Eosinophils # (A) 0.2 k/uL (0-0.7); Eosinophils % (A) 4 %; HCT 41.5 % (39.0-53.0); HGB 13.8 gm/dL (13.0-17.5); Lymphocytes # (A) 2.6 k/uL (1.0-4.8); Lymphocytes % (A) 38 %; MCH 29.7 pg (25.0-35.0); MCHC 33.3 g/dL (31.0-37.0); MCV 89.1 fL (80.0-100.0); Monocytes # (A) 0.6 k/uL (0-1.0); Monocytes % (A) 8 %; Neutrophils # (A) 3.1 k/uL (1.3-7.7); Neutrophils % (A) 47 %; Platelet Count 225 k/uL (150-450); RBC 4.66 m/uL (4.30-5.90); RDW 13.8 % (11.5-15.5); WBC 6.6 k/uL (3.8-10.6)
[2020-11-14] MEDS: NITROGLYCERIN OINT 1 INCH/GM PACKET TOPICAL SCH ×2 (05:10→05:19)
[2020-11-14 07:46] VITALS: BP 124/83; PULSE 70; RESP 16
[2020-11-14] MEDS ORDERED: MULTIVITAMINS, THERA 1 EACH TAB PO SCH (09:00)
[2020-11-14] MEDS ORDERED: REGADENOSON 0.4 MG/5 ML SYRINGE IV PRN (09:00)
[2020-11-14] MEDS ORDERED: AMINOPHYLLINE 500 MG/20 ML VIAL IV PRN (09:00)
[2020-11-14] MEDS ORDERED: ASPIRIN 81 MG PO SCH (09:00)
[2020-11-14] MEDS ORDERED: ASPIRIN 325 MG TAB PO SCH (09:00)
[2020-11-14] MEDS ORDERED: LOSARTAN 50 MG TAB PO SCH (09:00)
[2020-11-14] MEDS ORDERED: CLOPIDOGREL 75 MG TAB PO SCH (09:00)
[2020-11-14] MEDS ORDERED: ISOSORBIDE MONONITRATE ER 30 MG TAB.ER.24H PO SCH (09:00)
[2020-11-14] MEDS ORDERED: CAFFEINE CITRATE 60 MG/3 ML VIAL IV PRN (09:00)
[2020-11-14] MEDS ORDERED: amLODIPine 10 MG TAB PO SCH (09:00)
[2020-11-14 09:50] LABS: African American GFR (CKD) 80.7 (60.0-200.0); Anion Gap 6.4 mmol/L (4.00-12.00); BUN/Creat Ratio 16.67 Ratio (12.00-20.00); Calcium 9.5 mg/dL (8.7-10.3); Carbon Dioxide 28.6 mmol/L (21.6-31.8); Chol/HDL Ratio 4.73; LDL Cholesterol,Calculated 69.4 mg/dL (0.0-131.0); Non-African American GFR(CKD) 69.6 (60.0-200.0); Potassium 4.3 mmol/L (3.5-5.5); VLDL Calculation 42.6 mg/dL (5.00-40.00)
[2020-11-14] MEDS: carvediloL 12.5 MG TAB PO SCH (10:50)
[2020-11-14] MEDS: hydrALAZINE HCL 50 MG TAB PO SCH (10:50)
--- NOTE | 2020-11-14 11:09 | P.PN ---
Subjective Progress Note Date: 11/14/20 CHIEF COMPLAINT: Chest pain HISTORY OF PRESENT ILLNESS: 11/13/2020 This is a 50-year-old male with a past medical history significant for coronary artery disease with previous stent to the LAD, ischemic cardiomyopathy with ICD implantation, hypertension, hyperlipidemia, and nicotine dependence. Patient follows in the office with Dr. Zarco. We have been asked to see the patient in consultation for chest pain. Patient reports he began having chest pain yesterday while he was driving. He states the pain was in the left upper chest. He denies any radiation of the pain. He denies any shortness of breath. He states the pain he experienced yesterday was not the same type of pain he experienced when he had his stent in 2018. He states the pain was not worse with deep inspiration or movement. He is currently chest pain free at the time of examination. Patient does report having an episode of bright red blood with a bowel movement a couple days ago. Patient reports he has a history of hemorrhoids. 11/14/2020 Patient examined this morning at the bedside. He denies chest pain or pressure. He denies shortness of breath. Blood pressure 124/83. Heart rate in the 70s. He is on room air with oxygen saturations greater than 92%. He is afebrile. Echocardiogram completed revealed ejection fraction 25-30%, basal inferior, basal inferior septal, inferior, inferior septal, and apical inferior LV wall hypokinesis. His Plavix was discontinued per general surgery. He is tentatively scheduled for colonoscopy tomorrow with Dr. Cordon. PHYSICAL EXAM: VITAL SIGNS: Reviewed. GENERAL: Well-developed in no acute distress. HEENT: Head is normocephalic. Pupils are equal, round. Sclerae anicteric. Mucous membranes of the mouth are moist. Neck supple. No JVD or thyromegaly LUNGS: Respirations even and unlabored. Lungs essentially clear to auscultation bilaterally. HEART: Regular rate and rhythm. S1 and S2 heard. ABDOMEN: Soft. Nondistended. Nontender. EXTREMITIES: Normal range of motion. No clubbing or cyanosis. Peripheral pulses intact. No lower extremity edema NEUROLOGIC: Awake and alert. Oriented x 3. ASSESSMENT: Chest pain Rectal bleeding with history of hemorrhoids Coronary artery disease with previous PCI to LAD, 2017 Ischemic cardiomyopathy, ejection fraction 25-30%, status post biventricular ICD in 2018 Hypertension Hyperlipidemia Nicotine dependence PLAN: Continue current cardiac medications Patient scheduled for Lexiscan stress test today Patient's Plavix currently on hold for tentative colonoscopy on with Dr. Cordon. If patient's stress test is negative, may discontinue Plavix altogether and continue with just a baby aspirin as patient's last PCI was in 2018 Further recommendations pending patient's course Nurse practitioner note has been reviewed by physician. Signing provider agrees with the documented findings, assessment, and plan of care. Objective - Vital Signs Vital signs: Vital Signs Temp 98.2 F 11/14/20 07:45 Pulse 70 11/14/20 07:45 Resp 16 11/14/20 07:45 BP 124/83 11/14/20 07:45 Pulse Ox 99 11/14/20 07:45 Intake & Output 11/13/20 11/14/20 11/14/20 18:59 06:59 18:59 Intake Total 226 240 Balance 226 240 Weight 106.594 kg Intake: Oral 226 240 Other: Voiding Method Toilet Toilet Toilet # Voids 1 - Labs CBC & Chem 7: 11/14/20 04:01 11/14/20 04:01 Labs: Abnormal Lab Results - Last 24 Hours (Table) 11/14/20 Range/Units 04:01 Triglycerides 213.0 H (0.0-149.0) mg/dL VLDL Cholesterol, Calc 42.60 H (5.00-40.00) mg/dL HDL Cholesterol 30.0 L (40.0-60.0) mg/dL
--- NOTE | 2020-11-14 11:30 | NM ---
EXAMINATION TYPE: NM stress lexiscan cardiolite DATE OF EXAM: 11/14/2020 COMPARISON: NONE HISTORY: Chest pain TECHNIQUE: After the intravenous administration of 10.4 mCi Tc 99m Sestamibi - Cardiolite resting SP ECT images acquired 45 minutes post injection. The patient received 0.4mg Lexiscan, 25.2 mCi Tc 99m Sestamibi - Stress images obtained [address] injection FINDINGS: There is diminished radiotracer accumulation along the inferior wall on both rest and stress images. This appears to be fixed. No reversible perfusion defects are evident. There is global hypokinesia. Mild dyskinesia of the inferior wall near the cardiac base may be presen t. The ejection fraction is low at 32%. IMPRESSION: 1. Global hypokinesia. Some mild dyskinesia of the inferior wall near the cardiac base is present. 2. Low ejection fraction at 32%. 3. Fixed defect along the inferior wall compatible with prior infarct. 4. No stress-induced ischemic changes evident.
--- NOTE | 2020-11-14 13:24 | EST ---
EXERCISE STRESS AGE: 50 SEX: Male HT: 6'2" WT: 234 lbs. PROTOCOL: Lexiscan STAGE: N/A DURATION OF EXERCISE: 5 minutes HEART RATE REST: 66 BLOOD PRESSURE REST: 142/102 MAXIMUM HEART RATE ACHIEVED: 96 MAXIMUM BLOOD PRESSURE: 149/90 85% MPHR: 144 100% MPHR: 169 METS: N/A INDICATIONS: Chest pain. CLINICAL INFORMATION: Baseline rhythm is a paced rhythm at rate of 66. Baseline blood pressure 142/102 mmHg. Patient received injection of Lexiscan. Electrocardiograph monitoring revealed no evidence of diagnostic ischemic ST deviation. Cardiolite was injected per protocol. CONCLUSION: 1. Nondiagnostic electrocardiograph stress testing. 2. Nuclear images will be reported separately. MMODL / IJN: [id number] /
--- NOTE | 2020-11-14 13:49 | P.PN ---
Subjective Progress Note Date: 11/14/20 CHIEF COMPLAINT: Chest pain HISTORY OF PRESENT ILLNESS: Patient is being followed for his rectal bleed and possible hemorrhoids. Patient has had no further rectal bleeding since hospitalization. Patient denies any rectal pain. He had stress test today with no stress-induced ischemia. Patient is requesting that colonoscopy to be completed in the outpatient setting. Afebrile. Hemoglobin 13.8 cardiology discontinued patient's Plavix. PHYSICAL EXAM: VITAL SIGNS: Reviewed. GENERAL: Well-developed in no acute distress. HEENT: No sclera icterus. Extraocular movements grossly intact. Moist buccal mucosa. Head is atraumatic, normocephalic. ABDOMEN: Soft. Nondistended. Nontender. NEUROLOGIC: Alert and oriented. Cranial nerves II through XII grossly intact. ASSESSMENT: 1. Rectal bleeding with a known history of internal hemorrhoids. Stable hemoglobin and no active signs of bleeding 2. Chest pain workup completed by cardiology PLAN: -Patient does not want colonoscopy completed during this hospitalization -Recommend colonoscopy in the outpatient setting -Patient to follow-up with Dr. Cordon in 1 week Physician Central Office [employer] note has been reviewed by physician. Signing provider agrees with the documented findings, assessment, and plan of care. Objective - Vital Signs Vital signs: Vital Signs Temp 98.2 F 11/14/20 07:45 Pulse 70 11/14/20 07:45 Resp 16 11/14/20 07:45 BP 124/83 11/14/20 07:45 Pulse Ox 99 11/14/20 07:45 Intake & Output 11/13/20 11/14/20 11/14/20 18:59 06:59 18:59 Intake Total 226 240 Balance 226 240 Weight 106.594 kg Intake: Oral 226 240 Other: Voiding Method Toilet Toilet Toilet # Voids 1 - Labs CBC & Chem 7: 11/14/20 04:01 11/14/20 04:01 Labs: Abnormal Lab Results - Last 24 Hours (Table) 11/14/20 Range/Units 04:01 Triglycerides 213.0 H (0.0-149.0) mg/dL VLDL Cholesterol, Calc 42.60 H (5.00-40.00) mg/dL HDL Cholesterol 30.0 L (40.0-60.0) mg/dL
--- NOTE | 2020-11-14 13:56 | P.DS ---
Providers Date of admission: 11/13/20 09:57 Expected date of discharge: 11/14/20 Attending physician: Dorinda Ingram Consults: 11/13/20 09:26 Consult Physician Urgent Consulting Provider: [facility] Consult Reason/Comments: Unstable angina Do you want consulting provider notified?: Yes 11/13/20 10:07 Consult Physician Routine Consulting Provider: Jimi Cordon Consult Reason/Comments: rectal bleeding/hemorrhoids Do you want consulting provider notified?: Yes Primary care physician: Stated None Hospital Course: This is a 50-year-old male with past medical history noted below who presented to the emergency room with chest pain and rectal bleeding. Patient was evaluated in the ER and placed on observation for further management of his medical problems noted below. 1. Chest pain, with typical and atypical features. 12-lead EKG showed a paced rhythm. troponin negative 3 sets. Patient was seen and evaluated by cardiology. He underwent a Lexiscan stress test that was negative for ischemia. This showed global hypokinesia. Cardiology recommended to continue with aspirin and discontinue Plavix. 2. Rectal bleed, now resolved. Probably attributed to history of internal hemorrhoids. Colonoscopy couple of years ago with no other source of bleeding. Patient was seen and evaluated by general surgery. He was offered colonoscopy during this admission that he opted to do it as an outpatient which is reasonable. Hemoglobin stable. 3. Coronary artery disease with prior stent placement to LAD 4. History of complete heart block 5. Underlying ischemic cardiomyopathy status post ICD implantation (pacemaker upgraded to ICD in 2018). Echocardiogram during this admission showed EF of 30% 6. Essential hypertension, blood pressure within acceptable range 7. Hyperlipidemia on Lipitor Patient will be discharged in a stable condition. Follow-up with PCP and surgery as directed. Patient Condition at Discharge: Fair Plan - Discharge Summary Discharge Rx Participant: No New Discharge Prescriptions: Continue Aspirin 81 mg PO DAILY chew Atorvastatin [Lipitor] 80 mg PO HS tab carvediloL [Carvedilol] 25 mg PO BID #180 tablet Multivits, W-Ca,Fe,Oth Min [Therapeutic M] 1 tab PO DAILY Cholecalciferol [Vitamin D3 (25 Mcg = 1000 Iu)] 25 mcg PO DAILY Nitroglycerin Sl Tabs [Nitrostat] 0.4 mg SUBLINGUAL Q5M PRN PRN Reason: Chest Pain Losartan Potassium 100 mg PO DAILY hydrALAZINE HCL [Apresoline] 50 mg PO TID amLODIPine [Norvasc] 10 mg PO DAILY Albuterol Inhaler [Ventolin Hfa Inhaler] 1 puff INHALATION RT-Q4H PRN PRN Reason: Shortness Of Breath Isosorbide Mononitrate ER [Imdur] 30 mg PO DAILY #30 tab Discontinued Clopidogrel [Plavix] 75 mg PO DAILY #0 tab Discharge Medication List Aspirin 81 mg PO DAILY chew 01/09/18 [Rx] Atorvastatin [Lipitor] 80 mg PO HS tab 01/09/18 [Rx] carvediloL [Carvedilol] 25 mg PO BID #180 tablet 06/15/18 [Rx] Albuterol Inhaler [Ventolin Hfa Inhaler] 1 puff INHALATION RT-Q4H PRN 11/13/20 [History] Cholecalciferol [Vitamin D3 (25 Mcg = 1000 Iu)] 25 mcg PO DAILY 11/13/20 [History] Losartan Potassium 100 mg PO DAILY 11/13/20 [History] Multivits,Th W-Ca,Fe,Oth Min [Therapeutic M] 1 tab PO DAILY 11/13/20 [History] Nitroglycerin Sl Tabs [Nitrostat] 0.4 mg SUBLINGUAL Q5M PRN 11/13/20 [History] amLODIPine [Norvasc] 10 mg PO DAILY 11/13/20 [History] hydrALAZINE HCL [Apresoline] 50 mg PO TID 11/13/20 [History] Isosorbide Mononitrate ER [Imdur] 30 mg PO DAILY #30 tab 11/14/20 [Rx] Follow up Appointment(s)/Referral(s): Humphrey Galeas [STAFF PHYSICIAN] - 1 Week Jimi Cordon MD [STAFF PHYSICIAN] - 3 Days Discharge Disposition: HOME SELF-CARE
== END 2020-11-14 14:53 | disposition home or self-care (01) ==
LOC: EC 07:40 → 6NMEDSUR 09:57
PROVIDERS: ADMIT Internal Medicine; ATTEND Internal Medicine
DX: R07.89 Other chest pain (principal); K62.5 Hemorrhage of anus and rectum; E78.00 Pure hypercholesterolemia, unspecified; E78.5 Hyperlipidemia, unspecified; J44.9 Chronic obstructive pulmonary disease, unspecified; F32.9 Major depressive disorder, single episode, unspecified; I25.5 Ischemic cardiomyopathy; I44.2 Atrioventricular block, complete; F17.210 Nicotine dependence, cigarettes, uncomplicated; M54.9 Dorsalgia, unspecified; I25.10 Atherosclerotic heart disease of native coronary artery without angina pectoris; I11.0 Hypertensive heart disease with heart failure; I50.9 Heart failure, unspecified; K64.8 Other hemorrhoids; I47.2 Ventricular tachycardia; Z79.02 Long term (current) use of antithrombotics/antiplatelets; Z79.82 Long term (current) use of aspirin; Z79.899 Other long term (current) drug therapy; Z91.011 Allergy to milk products; Z95.5 Presence of coronary angioplasty implant and graft; Z86.010 Personal history of colon polyps; I25.2 Old myocardial infarction; Z95.810 Presence of automatic (implantable) cardiac defibrillator; Z87.19 Personal history of other diseases of the digestive system; Z84.89 Family history of other specified conditions
CPT/HCPCS: 93005 ×2; 99285; 36415; 94640; 93017; 93306; 80061; 80053; 80048; 83735; 84484; 85025 ×2; 85610; 85730; 71046; 78452; G0378 ×2; A9500

== ENCOUNTER 2020-11-29 11:21 | Day surgery (SDC) | payer OTHER ==
[2020-11-28 10:38] VITALS: BMI 29.7
[2020-11-29 12:00] VITALS: RESP 16; TEMP 97.9
[2020-11-29] MEDS ORDERED: PROPOFOL 10 MG/ML 20 ML VIAL IV ONE (12:47)
--- NOTE | 2020-11-29 12:52 | P.GSHP ---
History of Present Illness H&P Date: 11/29/20 Chief Complaint: GI bleed This is a 50-year-old male who's had history of GI bleed. Patient's today for colonoscopy. He has a. History of colon polyps Past Medical History Past Medical History: Coronary Artery Disease (CAD), Heart Failure, Hyperlipidemia, Hypertension, Myocardial Infarction ([place]) Additional Past Medical History / Comment(s): 3rd degree heart block, ischemic cardiomyopathy, nonsustained Vtach, pt has AICD/pacer, hemorrhoids, lower GI bleed, benign colon polyp. Last Myocardial Infarction Date:: 01/07/18 History of Any Multi-Drug Resistant Organisms: None Reported Past Surgical History: AICD, Heart Catheterization With Stent, Pacemaker Additional Past Surgical History / Comment(s): 2018 Pacer then AICD/ PCI with stent, colonoscopy/benign polypectomy, oral surgery for teeth Past Anesthesia/Blood Transfusion Reactions: No Reported Reaction Date of Last Stent Placement:: 01/07/2018 Type of Cardiac Device: Permanent Pacemaker, AICD Device Placement Date:: 01/07/18 Smoking Status: Current some day smoker - Past Family History Mother History Unknown: Yes Family Medical History: No Reported History Additional Family Medical History / Comment(s): Back problems. Father History Unknown: Yes Medications and Allergies Home Medications Medication Instructions Recorded Confirmed Type Aspirin 81 mg PO DAILY chew 01/09/18 11/29/20 Rx Atorvastatin [Lipitor] 80 mg PO HS tab 01/09/18 11/29/20 Rx carvediloL [Carvedilol] 25 mg PO BID #180 tablet 06/15/18 11/29/20 Rx Albuterol Inhaler [Ventolin Hfa 1 puff INHALATION RT-Q4H PRN 11/13/20 11/29/20 History Inhaler] Cholecalciferol [Vitamin D3 (25 25 mcg PO DAILY 11/13/20 11/29/20 History Mcg = 1000 Iu)] Losartan Potassium 100 mg PO DAILY 11/13/20 11/29/20 History Multivits,Th W-Ca,Fe,Oth Min 1 tab PO DAILY 11/13/20 11/29/20 History [Therapeutic M] Nitroglycerin Sl Tabs [Nitrostat] 0.4 mg SUBLINGUAL Q5M PRN 11/13/20 11/29/20 History amLODIPine [Norvasc] 10 mg PO DAILY 11/13/20 11/29/20 History hydrALAZINE HCL [Apresoline] 50 mg PO TID 11/13/20 11/29/20 History Isosorbide Mononitrate ER [Imdur] 30 mg PO DAILY #30 tab 11/14/20 11/29/20 Rx Clopidogrel [Plavix] 75 mg PO DAILY 11/28/20 11/29/20 History Allergies Allergy/AdvReac Type Severity Reaction Status Date / Time Milk Containing Products AdvReac Nausea & Verified 11/29/20 11:49 [Dairy] Vomiting & Diarrhea Surgical - Exam Vital Signs Temp Pulse Resp BP Pulse Ox 97.9 F 50 L 16 115/82 98 11/29/20 11:50 11/29/20 11:50 11/29/20 11:50 11/29/20 11:50 11/29/20 11:50 - General well developed, well nourished, no distress - Eyes PERRL - ENT normal pinna - Neck no masses - Respiratory normal expansion - Cardiovascular Rhythm: regular - Abdomen Abdomen: soft, non tender Assessment and Plan Assessment: History of colon polyps. We'll perform colonoscopy
--- NOTE | 2020-11-29 13:10 | P.OP ---
Date of Procedure: 11/29/20 Preoperative Diagnosis: GI bleed Postoperative Diagnosis: Internal hemorrhoids Multiple colonic polyps with polyposis of rectum sigmoid and left colon Procedure(s) Performed: Colonoscopy Anesthesia: MAC Surgeon: Jimi Cordon Pathology: other (Rectal polyp, left colon polyp) Condition: stable Disposition: PACU Description of Procedure: The patient's placed on the endoscopy table in the lateral position. He received IV sedation. Digital rectal exam was performed which thrombosed internal hemorrhoids. Flexible colonoscope was then placed patient anus passed throughout the entire colon. The patient a large amount of stool in the right colon which limited the view of the mucosa. Scope was withdrawn. The distal ascending colon appeared normal. The transverse colon appeared normal. In the descending colon there was scattered small hyperplastic polyps. Using a biopsy forcep a random polyp was removed. Withdrawn and the sigmoid colon was normal polyp seen. In the rectum several more polyp seen this removed with the snare. There is no active bleeding seen. The patient. Have polyposis of the left colon. The scope was withdrawn the thrombosed internal hemorrhoid was visualized. There is no active bleeding. It is presumed the patient's previous GI bleed was due to internal hemorrhoids.
--- NOTE | 2020-11-29 13:33 | P.OP ---
Date of Procedure: 11/29/20 Preoperative Diagnosis: GERD Constipation Postoperative Diagnosis: Antral gastritis Esophagitis Normal colon Procedure(s) Performed: EGD Colonoscopy Anesthesia: MAC Surgeon: Jimi Cordon Pathology: other (Antrum, esophagus) Condition: stable Disposition: PACU Description of Procedure: The patient's placed on the endoscopy table in the lateral position. She received IV sedation. The gastro-/oropharynx passed in the esophagus into the stomach. Scope was placed through the pylorus. The first and second portion of the duodenum. Normal. Scope was then brought back the antrum was mildly inflamed. A biopsies performed. The scope was unretroflexed and remainder of the stomach appeared normal. The GE junction was at 40 cm. The distal esophagus. Above inflamed. Biopsies performed. The proximal esophagus appeared normal. Scope was withdrawn for patient. Next digital rectal exam performed which revealed no ebonized. The colonoscope was then placed patient anus and passed throughout the entire colon. In the right colon was a large amount of stool. Slowly healing mucosa. Scope was withdrawn remainder the ascending colon transverse colon, descending colon and sigmoid colon appeared normal. The rectum was normal. The scope was withdrawn for patient.
[2020-11-29 14:07] VITALS: BP 127/78; PULSE 75
== END 2020-11-29 14:30 | disposition home or self-care (01) ==
LOC: ORWHC2ENDO 11:21
PROVIDERS: ATTEND Surgery
DX: K62.1 Rectal polyp (principal); K63.5 Polyp of colon; K21.00 Gastro-esophageal reflux disease with esophagitis, without bleeding; K64.5 Perianal venous thrombosis; K92.2 Gastrointestinal hemorrhage, unspecified; Z86.010 Personal history of colon polyps; I25.10 Atherosclerotic heart disease of native coronary artery without angina pectoris; I11.0 Hypertensive heart disease with heart failure; I50.9 Heart failure, unspecified; E78.5 Hyperlipidemia, unspecified; I25.2 Old myocardial infarction; I44.2 Atrioventricular block, complete; I25.5 Ischemic cardiomyopathy; I47.2 Ventricular tachycardia; Z95.810 Presence of automatic (implantable) cardiac defibrillator; Z95.5 Presence of coronary angioplasty implant and graft; Z95.0 Presence of cardiac pacemaker; Z98.890 Other specified postprocedural states; F17.200 Nicotine dependence, unspecified, uncomplicated; Z79.82 Long term (current) use of aspirin; Z79.02 Long term (current) use of antithrombotics/antiplatelets; Z79.899 Other long term (current) drug therapy; Z91.011 Allergy to milk products
CPT/HCPCS: 88305; 45380; 45385; J2704

== ENCOUNTER 2020-12-29 23:16 | Emergency (ER) | payer OTHER ==
[2020-12-29 23:21] VITALS: RESP 20
--- NOTE | 2020-12-30 00:14 | XR ---
EXAMINATION TYPE: XR chest 2V DATE OF EXAM: 12/30/2020 COMPARISON: NONE HISTORY: Chest pressure TECHNIQUE: Single view FINDINGS: There is no heart failure nor confluent pneumonic infiltrate. Costophrenic angles are clear . There is left axillary pacemaker. There are chest leads. Diaphragm is normal. IMPRESSION: No active cardiopulmonary disease. No change.
[2020-12-30 00:24] LABS: Basophils # (A) 0.1 k/uL (0-0.2); Basophils % (A) 1 %; Eosinophils # (A) 0.3 k/uL (0-0.7); Eosinophils % (A) 3 %; HCT 40.8 % (39.0-53.0); HGB 13.9 gm/dL (13.0-17.5); Lymphocytes % (A) 30 %; MCH 29.5 pg (25.0-35.0); MCHC 34.1 g/dL (31.0-37.0); MCV 86.6 fL (80.0-100.0); Mean Platelet Volume 8.4; Monocytes % (A) 11 %; Neutrophils # (A) 5.2 k/uL (1.3-7.7); Neutrophils % (A) 53 %; Platelet Count 217 k/uL (150-450); RDW 13.7 % (11.5-15.5); WBC 9.9 k/uL (3.8-10.6)
[2020-12-30 00:34] LABS: Albumin 4.2 g/dL (3.5-5.0); Calcium 9.3 mg/dL (8.4-10.2); Magnesium 1.9 mg/dL (1.6-2.3); Potassium 3.7 mmol/L (3.5-5.1); Total Bilirubin 0.4 mg/dL (0.2-1.3); Total Protein 8.1 g/dL (6.3-8.2)
[2020-12-30 01:01] LABS: INR 0.9 (<1.2); Partial Thromboplastin Time 22.8 sec (22.0-30.0)
--- NOTE | 2020-12-30 01:06 | ED ---
General Adult HPI - General Chief complaint: Chest Pain Stated complaint: Chest pain Time Seen by Provider: 12/29/20 23:26 Source: patient Mode of arrival: wheelchair Limitations: no limitations - History of Present Illness Initial comments: This patient is a 50-year-old man who presents with complaint that he is developing a cold. Patient is triaged as chest pain, and when asked further, he states that after he has had a fair amount of coughing he gets a little pain in the left chest with the cough. He states that the main thing is he is having s ome rhinorrhea, cough and some yellowish sputum associated with it. The patient is denying any dyspnea. He states there is no pain in the chest when he is not coughing. He has not had any anginal symptoms. Symptoms had come on just this afternoon. When further questioned about coronavirus, patient states that he had infection with that approximately 10 or 11 months ago. Patient had not noted fever or chills. -: hour(s) Location: chest Severity scale (1-10): 2 Quality: aching Consistency: intermittent Improves with: none Worsens with: other (Cough) Associated Symptoms: cough Treatments Prior to Arrival: none - Related Data Home Medications Medication Instructions Recorded Confirmed Albuterol Inhaler [Ventolin Hfa 1 puff INHALATION RT-Q4H PRN 11/13/20 11/29/20 Inhaler] Cholecalciferol [Vitamin D3 (25 25 mcg PO DAILY 11/13/20 11/29/20 Mcg = 1000 Iu)] Losartan Potassium 100 mg PO DAILY 11/13/20 11/29/20 Multivits,Th W-Ca,Fe,Oth Min 1 tab PO DAILY 11/13/20 11/29/20 [Therapeutic M] Nitroglycerin Sl Tabs [Nitrostat] 0.4 mg SUBLINGUAL Q5M PRN 11/13/20 11/29/20 amLODIPine [Norvasc] 10 mg PO DAILY 11/13/20 11/29/20 hydrALAZINE HCL [Apresoline] 50 mg PO TID 11/13/20 11/29/20 Clopidogrel [Plavix] 75 mg PO DAILY 11/28/20 11/29/20 Previous Rx's Medication Instructions Recorded Aspirin 81 mg PO DAILY chew 01/09/18 Atorvastatin [Lipitor] 80 mg PO HS tab 01/09/18 carvediloL [Carvedilol] 25 mg PO BID #180 tablet 06/15/18 Isosorbide Mononitrate ER [Imdur] 30 mg PO DAILY #30 tab 11/14/20 Promethazine 6.25MG/5Ml [Phenergan 5 ml PO Q4HR PRN #120 ml 12/30/20 Syrup] Allergies Allergy/AdvReac Type Severity Reaction Status Date / Time Milk Containing Products AdvReac Nausea & Verified 12/29/20 23:20 [Dairy] Vomiting & Diarrhea Review of Systems ROS Statement: Those systems with pertinent positive or pertinent negative responses have been documented in the HPI. ROS Other: All systems not noted in ROS Statement are negative. Constitutional: Denies: fever, chills Eyes: Denies: eye pain ENT: Reports: congestion. Denies: ear pain, throat pain Respiratory: Reports: as per HPI, cough. Denies: dyspnea, wheezes, hemoptysis, stridor Cardiovascular: Reports: as per HPI, chest pain. Denies: palpitations, orthopne a, edema, syncope Gastrointestinal: Denies: abdominal pain, vomiting, diarrhea Genitourinary: Denies: dysuria Skin: Denies: rash Neurological: Denies: headache Past Medical History Past Medical History: Coronary Artery Disease (CAD), Heart Failure, Hyperlipide ankit, Hypertension, Myocardial Infarction ([place]) Additional Past Medical History / Comment(s): 3rd degree heart block, ischemic cardiomyopathy, nonsustained Vtach, pt has AICD/pacer, hemorrhoids, lower GI bleed, benign colon polyp. Last Myocardial Infarction Date:: 01/07/18 History of Any Multi-Drug Resistant Organisms: None Reported Past Surgical History: AICD, Heart Catheterization With Stent, Pacemaker Additional Past Surgical History / Comment(s): 2018 Pacer then AICD/ PCI with stent, colonoscopy/benign polypectomy, oral surgery for teeth Past Anesthesia/Blood Transfusion Reactions: No Reported Reaction Date of Last Stent Placement:: 01/07/2018 Type of Cardiac Device: Permanent Pacemaker, AICD Device Placement Date:: 01/07/18 Past Psychological History: Depression Smoking Status: Current some day smoker Past Alcohol Use History: None Reported Past Drug Use History: None Reported - Past Family History Mother History Unknown: Yes Family Medical History: No Reported History Additional Family Medical History / Comment(s): Back problems. Father History Unknown: Yes General Exam Limitations: no limitations General appearance: alert, in no apparent distress Head exam: Present: atraumatic, normocephalic Eye exam: Present: normal appearance. Absent: scleral icterus, conjunctival injection ENT exam: Present: normal oropharynx Neck exam: Present: normal inspection, full ROM Respiratory exam: Present: normal lung sounds bilaterally, chest wall tenderness. Absent: respiratory distress, wheezes, rales, rhonchi, stridor, accessory muscle use Cardiovascular Exam: Present: regular rate, normal rhythm, normal heart sounds. Absent: systolic murmur, diastolic murmur, rubs, gallop GI/Abdominal exam: Present: soft. Absent: distended, tenderness, guarding, rebound, rigid Extremities exam: Present: normal inspection, normal capillary refill. Absent: pedal edema, calf tenderness Neurological exam: Present: alert Skin exam: Present: warm, dry, intact, normal color. Absent: rash Course Vital Signs 12/29/20 23:17 Temperature 98.7 F Pulse Rate 84 Respiratory 20 Rate Blood Pressure 146/93 O2 Sat by Pulse 99 Oximetry EKG Findings - EKG Comments: EKG Findings:: ECG shows paced rhythm at 93 bpm. - EKG Results: EKG: interpreted by CARLEY Medical Decision Making - Lab Data Result diagrams: 12/30/20 00:05 12/30/20 00:05 Lab Results 12/30/20 12/30/20 12/30/20 Range/Units 00:05 00:05 00:05 WBC 9.9 (3.8-10.6) k/uL RBC 4.70 (4.30-5.90) m/uL Hgb 13.9 (13.0-17.5) gm/dL Hct 40.8 (39.0-53.0) % MCV 86.6 (80.0-100.0) fL MCH 29.5 (25.0-35.0) pg MCHC 34.1 (31.0-37.0) g/dL RDW 13.7 (11.5-15.5) % Plt Count 217 (150-450) k/uL MPV 8.4 Neutrophils % 53 % Lymphocytes % 30 % Monocytes % 11 % Eosinophils % 3 % Basophils % 1 % Neutrophils # 5.2 (1.3-7.7) k/uL Lymphocytes # 3.0 (1.0-4.8) k/uL Monocytes # 1.0 (0-1.0) k/uL Eosinophils # 0.3 (0-0.7) k/uL Basophils # 0.1 (0-0.2) k/uL PT 10.0 (9.0-12.0) sec INR 0.9 (<1.2) APTT 22.8 (22.0-30.0) sec Sodium 139 (137-145) mmol/L Potassium 3.7 (3.5-5.1) mmol/L Chloride 108 H (98-107) mmol/L Carbon Dioxide 22 (22-30) mmol/L Anion Gap 9 mmol/L BUN 20 (9-20) mg/dL Creatinine 1.28 H (0.66-1.25) mg/dL Est GFR (CKD-EPI)AfAm 75 (>60 ml/min/1.73 sqM) Est GFR (CKD-EPI)NonAf 64 (>60 ml/min/1.73 sqM) Glucose 125 H (74-99) mg/dL Calcium 9.3 (8.4-10.2) mg/dL Magnesium 1.9 (1.6-2.3) mg/dL Total Bilirubin 0.4 (0.2-1.3) mg/dL AST 27 (17-59) U/L ALT 16 (4-49) U/L Alkaline Phosphatase 127 H (38-126) U/L Troponin I (0.000-0.034) ng/mL Total Protein 8.1 (6.3-8.2) g/dL Albumin 4.2 (3.5-5.0) g/dL 12/30/20 Range/Units 00:05 WBC (3.8-10.6) k/uL RBC (4.30-5.90) m/uL Hgb (13.0-17.5) gm/dL Hct (39.0-53.0) % MCV (80.0-100.0) fL MCH (25.0-35.0) pg MCHC (31.0-37.0) g/dL RDW (11.5-15.5) % Plt Count (150-450) k/uL MPV Neutrophils % % Lymphocytes % % Monocytes % % Eosinophils % % Basophils % % Neutrophils # (1.3-7.7) k/uL Lymphocytes # (1.0-4.8) k/uL Monocytes # (0-1.0) k/uL Eosinophils # (0-0.7) k/uL Basophils # (0-0.2) k/uL PT (9.0-12.0) sec INR (<1.2) APTT (22.0-30.0) sec Sodium (137-145) mmol/L Potassium (3.5-5.1) mmol/L Chloride (98-107) mmol/L Carbon Dioxide (22-30) mmol/L Anion Gap mmol/L BUN (9-20) mg/dL Creatinine (0.66-1.25) mg/dL Est GFR (CKD-EPI)AfAm (>60 ml/min/1.73 sqM) Est GFR (CKD-EPI)NonAf (>60 ml/min/1.73 sqM) Glucose (74-99) mg/dL Calcium (8.4-10.2) mg/dL Magnesium (1.6-2.3) mg/dL Total Bilirubin (0.2-1.3) mg/dL AST (17-59) U/L ALT (4-49) U/L Alkaline Phosphatase (38-126) U/L Troponin I <0.012 (0.000-0.034) ng/mL Total Protein (6.3-8.2) g/dL Albumin (3.5-5.0) g/dL Disposition Clinical Impression: Upper respiratory infection Disposition: HOME SELF-CARE Condition: Good Instructions (If sedation given, give patient instructions): Upper Respiratory Infection (ED) Prescriptions: Promethazine 6.25MG/5Ml [Phenergan Syrup] 5 ml PO Q4HR PRN #120 ml PRN Reason: Cough Is patient prescribed a controlled substance at d/c from ED?: No Referrals: None,Stated [Primary Care Provider] - 1-2 days
[2020-12-30 01:28] VITALS: PULSE 86
[2020-12-30 01:35] VITALS: BP 102/87; TEMP 98.3
== END 2020-12-30 01:35 | disposition home or self-care (01) ==
LOC: EC 23:16
DX: J06.9 Acute upper respiratory infection, unspecified (principal); I11.0 Hypertensive heart disease with heart failure; I50.9 Heart failure, unspecified; I25.10 Atherosclerotic heart disease of native coronary artery without angina pectoris; I25.2 Old myocardial infarction; F17.200 Nicotine dependence, unspecified, uncomplicated; Z79.02 Long term (current) use of antithrombotics/antiplatelets; Z79.899 Other long term (current) drug therapy; Z91.011 Allergy to milk products; Z95.810 Presence of automatic (implantable) cardiac defibrillator; Z95.5 Presence of coronary angioplasty implant and graft; Z86.16 Personal history of COVID-19
CPT/HCPCS: 36415; 71046; 80053; 83735; 84484; 85025; 85610; 85730; 87635; 93005; 99285

== ENCOUNTER 2021-04-11 05:44 | Day surgery (SDC) | payer OTHER ==
[2021-04-09 13:46] VITALS: BMI 33.2
[2021-04-11] MEDS ORDERED: SODIUM CHLORIDE 0.9% 1,000 ML IV SCH (05:59)
[2021-04-11] MEDS ORDERED: SODIUM CHLORIDE 0.9% 500 ML 500 ML IV ONE (06:13)
[2021-04-11 06:40] LABS: Basophils # (A) 0.1 k/uL (0-0.2); Basophils % (A) 1 %; Eosinophils # (A) 0.3 k/uL (0-0.7); Eosinophils % (A) 4 %; HCT 44.5 % (39.0-53.0); Lymphocytes # (A) 2.4 k/uL (1.0-4.8); Lymphocytes % (A) 37 %; MCH 28.7 pg (25.0-35.0); MCHC 33.7 g/dL (31.0-37.0); MCV 85.1 fL (80.0-100.0); Mean Platelet Volume 8.5; Monocytes # (A) 0.5 k/uL (0-1.0); Monocytes % (A) 8 %; Neutrophils # (A) 3.1 k/uL (1.3-7.7); Neutrophils % (A) 48 %; Platelet Count 232 k/uL (150-450); RBC 5.23 m/uL (4.30-5.90); RDW 14.6 % (11.5-15.5); WBC 6.5 k/uL (3.8-10.6)
[2021-04-11] MEDS ORDERED: ceFAZolin 1 GM in SODIUM CHLORIDE 0.9% 250 ML IRRIGATION PRN (07:00)
[2021-04-11 07:03] VITALS: TEMP 97.1
[2021-04-11] MEDS ORDERED: MIDAZOLAM 2 MG/2 ML VIAL ONE (07:17)
[2021-04-11] MEDS ORDERED: fentaNYL (PF) 50 MCG/ML 2 ML AMP ONE (07:17)
[2021-04-11] MEDS ORDERED: PROPOFOL 10 MG/ML 20 ML VIAL IV ONE (07:17)
--- NOTE | 2021-04-11 08:59 | P.EPPROC ---
- EP Procedure Note Electrophysiology Procedure Note: Procedure Biventricular ICD interrogation Bi V ICD DFT testing Bi V ICD reprogramming Indication for the procedure Patient has had nonsustained RV over sensing episodes with in addition of pacing Result No further over sensing issues after extending PVARP to 325 ms RV thresholds are within normal limits, they're clearly not elevated and therefore RV outputs was reprogrammed Bipolar LV , M2-P4 configuration used for pacing, excellent thresholds DFT at 10 J at least sensitivity no dropouts Details I reviewed the episode of nonsustained RV over sensing dated August. Following that LV pacing was turned off RV outputs were increased with increasing pulse rate despite the fact that the thresholds were within normal limits Ventricular sensed events noted. I wonder if this is in the process of detecting any underlying rhythm during interrogation VF extended the PVARP to 325 ms, alert the bases rate down to 50 beats a minute The patient had intrinsic beats/PVCs which were followed by post PVC pause but appropriately timed placed events following that After the PVARP was increased we did not see any atrial oversensing and we could not produce this event seen in August 2018 Cinefluoroscopy of the leads was performed The atrial lead is in excellent position in the right atrial appendage The P waves are quite large RV lead chronically positioned in the RV apex LV lead in the anterior/anterolateral vein RV threshold was 1.4 V at 0.5 ms pacing impedance 490 ohms LV threshold 1 V at 0.5 ms, M2-P4 8 pacing impedance 680 ohms Defibrillation level testing performed ventricular fibrillation induced and appropriately detected at least sensitivity 1 ms, without any dropouts and successfully internally defibrillated with 10 J shock no post shock noise Charge time 1.5 seconds, shocking impedance 78 ohms The device was then reprogrammed DDD mode no rate response 60-1:30 bpm AV delay 180/200 ms LV RV offset 30 ms MADIT RIT programming Appropriate antitachycardia pacing cardioversion and defibrillation PVARP 325 ms RV sensitivity at 0.5 mV for VF detection Cathodal configuration
[2021-04-11 09:27] VITALS: RESP 16
[2021-04-11 11:48] VITALS: BP 127/90; PULSE 68
== END 2021-04-11 10:09 | disposition home or self-care (01) ==
LOC: CATHEP 05:44
PROVIDERS: ATTEND Internal Medicine Clinical Cardiac Electrophysiology
DX: Z45.02 Encounter for adjustment and management of automatic implantable cardiac defibrillator (principal); I42.0 Dilated cardiomyopathy; I44.2 Atrioventricular block, complete; I25.10 Atherosclerotic heart disease of native coronary artery without angina pectoris; I10 Essential (primary) hypertension; Z20.822 Contact with and (suspected) exposure to COVID-19; E78.5 Hyperlipidemia, unspecified; Z72.0 Tobacco use; Z79.82 Long term (current) use of aspirin; Z79.899 Other long term (current) drug therapy
CPT/HCPCS: 93642; 80048; 85025; 87635; J2250; J3010; J2704

== ENCOUNTER 2021-08-02 04:04 | Inpatient (IN) | payer MEDICARE, OTHER ==
[2021-08-02] MEDS ORDERED: ASPIRIN 81 MG PO STA (05:04)
[2021-08-02 05:21] LABS: Basophils # (A) 0.1 k/uL (0-0.2); Basophils % (A) 1 %; Eosinophils # (A) 0.2 k/uL (0-0.7); Eosinophils % (A) 3 %; HCT 44.8 % (39.0-53.0); HGB 14.8 gm/dL (13.0-17.5); Lymphocytes % (A) 35 %; MCH 29.7 pg (25.0-35.0); MCHC 32.9 g/dL (31.0-37.0); MCV 90.2 fL (80.0-100.0); Mean Platelet Volume 9.3; Monocytes # (A) 0.4 k/uL (0-1.0); Monocytes % (A) 7 %; Neutrophils # (A) 2.8 k/uL (1.3-7.7); Neutrophils % (A) 50 %; Platelet Count 183 k/uL (150-450); RBC 4.97 m/uL (4.30-5.90); RDW 14.2 % (11.5-15.5); WBC 5.6 k/uL (3.8-10.6)
--- NOTE | 2021-08-02 05:24 | XR ---
EXAMINATION TYPE: XR chest 2V DATE OF EXAM: 08/02/2021 COMPARISON: 12/30/2020 HISTORY: Vertebra TECHNIQUE: FINDINGS: There is no heart failure nor confluent pneumonic infiltrate. Costophrenic angles are clear . There are no hilar masses. There is left axillary pacemaker. There are chest leads. Bony thorax is intact. IMPRESSION: No active cardiopulmonary disease. No adverse change.
[2021-08-02 05:39] LABS: Partial Thromboplastin Time 23.8 sec (22.0-30.0); Prothrombin Time 10.5 sec (9.0-12.0)
[2021-08-02 05:44] LABS: Albumin 3.7 g/dL (3.5-5.0); Calcium 9.2 mg/dL (8.4-10.2); Total Bilirubin 0.5 mg/dL (0.2-1.3); Total Protein 7.3 g/dL (6.3-8.2)
[2021-08-02] MEDS ORDERED: NITROGLYCERIN SL TABS 0.4 MG TAB SUBLINGUAL PRN ×2 (06:46→13:32)
[2021-08-02] MEDS ORDERED: HEPARIN SODIUM 1,000 UN/ML (10ML VL) IV ONE (06:46)
[2021-08-02] MEDS ORDERED: MORPHINE SULFATE 4 MG/ML SYRINGE IV PRN (06:46)
--- NOTE | 2021-08-02 06:56 | ED ---
SOB HPI - General Chief Complaint: Shortness of Breath Stated Complaint: Shortness of Breath Time Seen by Provider: 08/02/21 04:51 Source: patient Mode of arrival: wheelchair - History of Present Illness Initial Comments: This patient is a 51-year-old man who presents to have evaluation for a heavy sensation on his chest and also shortness of breath. Patient states that the sy mptoms have been there for approximately 3 days now, but have gotten worse over the course of tonight. Patient states that he believes it's because he has not been taking all of his cardiac medications. He states that he doesn't like the way that they make him feel, and in addition he has run out of the aspirin that he usually takes. Patient denies diaphoresis. No nausea or vomiting. MD Complaint: shortness of breath, chest pain Onset/Timin -: days(s) Severity: moderate Quality: other Consistency: constant (Heavy) Improves With: nothing Worsens With: nothing Associated Symptoms: chest pain Treatments Prior to Arrival: none - Related Data Home Oxygen Therapy: No Home Medications Medication Instructions Recorded Confirmed Albuterol Inhaler [Ventolin Hfa 1 puff INHALATION RT-Q4H PRN 11/13/20 04/11/21 Inhaler] Losartan Potassium 100 mg PO DAILY 11/13/20 04/11/21 Multivits,Th W-Ca,Fe,Oth Min 1 tab PO DAILY 11/13/20 04/11/21 [Therapeutic M] Nitroglycerin Sl Tabs [Nitrostat] 0.4 mg SUBLINGUAL Q5M PRN 11/13/20 04/09/21 amLODIPine [Norvasc] 10 mg PO DAILY 11/13/20 04/11/21 hydrALAZINE HCL [Apresoline] 50 mg PO TID 11/13/20 04/11/21 Previous Rx's Medication Instructions Recorded Aspirin 81 mg PO DAILY chew 01/09/18 Atorvastatin [Lipitor] 80 mg PO HS tab 01/09/18 carvediloL 25 mg PO BID #180 tablet 06/15/18 Isosorbide Mononitrate ER [Imdur] 30 mg PO DAILY #30 tab 11/14/20 Allergies Allergy/AdvReac Type Severity Reaction Status Date / Time Milk Containing Products AdvReac Nausea & Verified 08/02/21 08:15 [Dairy] Vomiting & Diarrhea Review of Systems ROS Statement: Those systems with pertinent positive or pertinent negative responses have been documented in the HPI. ROS Other: All systems not noted in ROS Statement are negative. Constitutional: Denies: fever, chills, weakness Respiratory: Reports: as per HPI, dyspnea. Denies: cough, wheezes, hemoptysis Cardiovascular: Reports: as per HPI, chest pain. Denies: palpitations, orthopnea, edema, syncope Gastrointestinal: Denies: abdominal pain, nausea, vomiting, diarrhea Genitourinary: Denies: dysuria, hematuria Musculoskeletal: Denies: back pain Skin: Denies: rash Neurological: Denies: headache, weakness, numbness Past Medical History Past Medical History: Coronary Artery Disease (CAD), Heart Failure, Hyperlipidemia, Hypertension, Myocardial Infarction ([place]) Additional Past Medical History / Comment(s): See Jerman's H&P,3rd degree heart block, ischemic cardiomyopathy, nonsustained Vtach, pt has AICD/pacer, hemorrhoids, lower GI bleed, benign colon polyp. Last Myocardial Infarction Date:: 01/07/18 History of Any Multi-Drug Resistant Organisms: None Reported Past Surgical History: AICD, Heart Catheterization With Stent, Pacemaker Additional Past Surgical History / Comment(s): 2018 Pacer then AICD/ PCI with stent, colonoscopy/benign polypectomy, oral surgery for teeth Past Anesthesia/Blood Transfusion Reactions: No Reported Reaction Date of Last Stent Placement:: 01/07/2018 Type of Cardiac Device: Permanent Pacemaker, AICD Device Placement Date:: 01/07/18 Past Psychological History: No Psychological Hx Reported Smoking Status: Current every day smoker Past Alcohol Use History: None Reported Past Drug Use History: None Reported - Past Family History Mother History Unknown: Yes Family Medical History: No Reported History Additional Family Medical History / Comment(s): Back problems. Father History Unknown: Yes Family Medical History: No Reported History General Exam Limitations: no limitations General appearance: alert, in no apparent distress Head exam: Present: atraumatic, normocephalic Eye exam: Present: normal appearance. Absent: scleral icterus, conjunctival injection ENT exam: Present: normal oropharynx Neck exam: Present: normal inspection, full ROM Respiratory exam: Present: normal lung sounds bilaterally. Absent: respiratory distress, wheezes, rales, rhonchi, stridor Cardiovascular Exam: Present: regular rate, normal rhythm, normal heart sounds. Absent: systolic murmur, diastolic murmur, rubs, gallop GI/Abdominal exam: Present: soft. Absent: distended, tenderness, guarding, rebound, rigid, mass Extremities exam: Present: normal inspection, normal capillary refill. Absent: pedal edema, calf tenderness Back exam: Present: normal inspection. Absent: CVA tenderness (R), CVA tend erness (L) Neurological exam: Present: alert Skin exam: Present: warm, dry, intact, normal color. Absent: rash Course Vital Signs 08/02/21 08/02/21 08/02/21 04:05 05:00 05:08 Temperature 97.7 F Pulse Rate 90 79 Respiratory 25 H 20 24 Rate Blood Pressure 156/110 128/94 O2 Sat by Pulse 98 98 Oximetry 08/02/21 08/02/21 08/02/21 05:50 07:38 08:05 Temperature Pulse Rate 80 82 78 Respiratory 20 20 20 Rate Blood Pressure 132/99 149/106 154/116 O2 Sat by Pulse 98 100 100 Oximetry Procedures - Odon Protocol (Time Out) Nurse: Jordon Navas Medical Decision Making - Medical Decision Making Patient's 51-year-old man with chest pain and dyspnea, initial workup showing minimally elevated troponin. The patient will be admitted for suspected acute coronary syndrome. Aspirin, morphine, nitrates, heparin started. Case is d iscussed with admitting physician and with cardiology on-call. Patient does continue to have mild chest heaviness. - Lab Data Result diagrams: 08/02/21 04:44 08/02/21 04:44 Lab Results 08/02/21 08/02/21 08/02/21 Range/Units 04:44 04:44 04:44 WBC 5.6 (3.8-10.6) k/uL RBC 4.97 (4.30-5.90) m/uL Hgb 14.8 (13.0-17.5) gm/dL Hct 44.8 (39.0-53.0) % MCV 90.2 (80.0-100.0) fL MCH 29.7 (25.0-35.0) pg MCHC 32.9 (31.0-37.0) g/dL RDW 14.2 (11.5-15.5) % Plt Count 183 (150-450) k/uL MPV 9.3 Neutrophils % 50 % Lymphocytes % 35 % Monocytes % 7 % Eosinophils % 3 % Basophils % 1 % Neutrophils # 2.8 (1.3-7.7) k/uL Lymphocytes # 2.0 (1.0-4.8) k/uL Monocytes # 0.4 (0-1.0) k/uL Eosinophils # 0.2 (0-0.7) k/uL Basophils # 0.1 (0-0.2) k/uL PT 10.5 (9.0-12.0) sec INR 1.0 (<1.2) APTT 23.8 (22.0-30.0) sec Sodium 138 (137-145) mmol/L Potassium 4.0 (3.5-5.1) mmol/L Chloride 110 H (98-107) mmol/L Carbon Dioxide 18 L (22-30) mmol/L Anion Gap 10 mmol/L BUN 16 (9-20) mg/dL Creatinine 1.23 (0.66-1.25) mg/dL Est GFR (CKD-EPI)AfAm 78 (>60 ml/min/1.73 sqM) Est GFR (CKD-EPI)NonAf 67 (>60 ml/min/1.73 sqM) Glucose 105 H (74-99) mg/dL Calcium 9.2 (8.4-10.2) mg/dL Total Bilirubin 0.5 (0.2-1.3) mg/dL AST 56 (17-59) U/L ALT 32 (4-49) U/L Alkaline Phosphatase 122 (38-126) U/L Troponin I (0.000-0.034) ng/mL Total Protein 7.3 (6.3-8.2) g/dL Albumin 3.7 (3.5-5.0) g/dL 08/02/21 Range/Units 04:44 WBC (3.8-10.6) k/uL RBC (4.30-5.90) m/uL Hgb (13.0-17.5) gm/dL Hct (39.0-53.0) % MCV (80.0-100.0) fL MCH (25.0-35.0) pg MCHC (31.0-37.0) g/dL RDW (11.5-15.5) % Plt Count (150-450) k/uL MPV Neutrophils % % Lymphocytes % % Monocytes % % Eosinophils % % Basophils % % Neutrophils # (1.3-7.7) k/uL Lymphocytes # (1.0-4.8) k/uL Monocytes # (0-1.0) k/uL Eosinophils # (0-0.7) k/uL Basophils # (0-0.2) k/uL PT (9.0-12.0) sec INR (<1.2) APTT (22.0-30.0) sec Sodium (137-145) mmol/L Potassium (3.5-5.1) mmol/L Chloride (98-107) mmol/L Carbon Dioxide (22-30) mmol/L Anion Gap mmol/L BUN (9-20) mg/dL Creatinine (0.66-1.25) mg/dL Est GFR (CKD-EPI)AfAm (>60 ml/min/1.73 sqM) Est GFR (CKD-EPI)NonAf (>60 ml/min/1.73 sqM) Glucose (74-99) mg/dL Calcium (8.4-10.2) mg/dL Total Bilirubin (0.2-1.3) mg/dL AST (17-59) U/L ALT (4-49) U/L Alkaline Phosphatase (38-126) U/L Troponin I 0.036 H* (0.000-0.034) ng/mL Total Protein (6.3-8.2) g/dL Albumin (3.5-5.0) g/dL - EKG Data -: EKG Interpreted by Ma EKG shows normal: axis (Left axis deviation), intervals (AR interval 214 ms, prolonged consistent with first-degree AV block. QRS duration 172 ms, prolonged. QTc 567 ms.) Interpretation: LVH (With repolarization abnormality) Disposition
[2021-08-02] MEDS: HEPARIN SOD,PORK IN 0.45% NACL 25,000 UNIT in 0.45% NACL 1 250ML.BAG IV SCH (07:27)
[2021-08-02] MEDS ORDERED: METOPROLOL TARTRATE 25 MG TAB PO SCH (09:00)
[2021-08-02] MEDS ORDERED: FUROSEMIDE 10 MG/ML 4 ML VIAL IV STA (10:45)
[2021-08-02] MEDS: hydrALAZINE HCL 50 MG TAB PO SCH ×2 (11:11→18:39)
[2021-08-02] MEDS: ISOSORBIDE MONONITRATE ER 30 MG TAB.ER.24H PO SCH (11:11)
[2021-08-02] MEDS: carvediloL 12.5 MG TAB PO SCH ×2 (11:11→18:40)
[2021-08-02] MEDS: LOSARTAN 50 MG TAB PO SCH (11:12)
--- NOTE | 2021-08-02 12:01 | ECHOF ---
Referral Reason:chest pain, abnormal troponins MEASUREMENTS -------- HEIGHT: 188.0 cm WEIGHT: 104.3 kg BP: 154/116 RVIDd: 3.4 cm (< 3.3) IVSd: 1.6 cm (0.6 - 1.1) LVIDd: 7.0 cm (3.9 - 5.3) LVPWd: 1.5 cm (0.6 - 1.1) IVSs: 2.0 cm LVIDs: 6.3 cm LVPWs: 1.6 cm LA Diam: 4.6 cm (2.7 - 3.8) LAESV Index (A-L): 48.34 ml/m Ao Diam: 3.0 cm (2.0 - 3.7) AV Cusp: 2.1 cm (1.5 - 2.6) MV EXCURSION: 17.007 mm (> 18.000) MV EF SLOPE: 75 mm/s (70 - 150) EPSS: 2.0 cm MV E Enzo: 1.10 m/s MV DecT: 92 ms MV A Enzo: 0.56 m/s MV E/A Ratio: 1.95 RAP: 5.00 mmHg RVSP: 42.90 mmHg FINDINGS -------- Paced rhythm. This was a technically good study. The left ventricle is severely dilated. There is moderate concentric left ventricular hypertrophy. Overall left ventricular systolic function is severely impaired with, an EF between 20 - 25 %. The right ventricle is mildly enlarged. LA is severely dilated >40 ml/m2 The right atrium is normal in size. Interatrial and interventricular septum intact. The aortic valve is trileaflet, and appears structurally normal. No aortic stenosis or regurgitation. Severe mitral regurgitation is present. [id number] tricuspid regurgitation present. There is mild pulmonary hypertension. The right ventricular systolic pressure, as measured by Doppler, is 42.90mmHg. Trace/mild (physiologic) pulmonic regurgitation. The aortic root size is normal. Normal inferior vena cava with normal inspiratory collapse consistent with estimated right atrial pre ssure of 5 mmHg. The inferior vena cava is mildly dilated. There is no pericardial effusion. CONCLUSIONS -------- 1. The left ventricle is severely dilated. 2. There is moderate concentric left ventricular hypertrophy. 3. Overall left ventricular systolic function is severely impaired with, an EF between 20 - 25 %. 4. The right ventricle is mildly enlarged. 5. LA is severely dilated >40 ml/m2 6. The aortic valve is trileaflet, and appears structurally normal. No aortic stenosis or regurgitati on. 7. Severe mitral regurgitation is present. 8. [id number] tricuspid regurgitation present. 9. There is mild pulmonary hypertension. 10. The right ventricular systolic pressure, as measured by Doppler, is 42.90mmHg. 11. Trace/mild (physiologic) pulmonic regurgitation. 12. There is no pericardial effusion. [employer] SENIOR DEVELOPER: Kasey Martinez RDCS
[2021-08-02] MEDS ORDERED: ALPRAZolam 0.5 MG TAB PO PRN (13:32)
[2021-08-02] MEDS ORDERED: ALPRAZolam 0.25 MG TAB PO PRN (13:32)
--- NOTE | 2021-08-02 13:41 | P.CRDCN ---
History of Present Illness Consult date: 08/02/21 History of present illness: HISTORY OF PRESENT ILLNESS: This is a 51-year-old male with a past medical history significant for coronary artery disease with PCI to the LAD in 2018, ischemic cardiomyopathy with an ejection fraction around 25% with AICD implantation, hypertension, hyperlipidemia, and nicotine dependence. Patient follows in the office with Dr. Zarco. We have been asked to see the patient in consultation for chest pain. Patient examined at the bedside. Patient presented to the hospital with a chief complaint of chest discomfort. He states he has been having intermittent chest pain over the past 3 days. He states it is a pressure-like sensation in the middle of his chest and it goes down into his left arm. He also reports having left arm numbness. He reports shortness of breath. He states the pain got worse this morning which prompted him to come to the emergency room. Patient states he received aspirin in the emergency room which relieved his chest pain. He is currently chest pain-free at the time of examination but he complains of significant shortness of breath and is unable to lay flat in bed. Patient also reports that he quit taking his medications about one month ago because he did not like the way they made him feel and he states he was tired. Patient also reports he has not been taking a baby aspirin daily because he ran out. EKG reveals sinus mechanism with first-degree AV block. LVH. Right bundle branch block. Chest xray no active process. Laboratory data: WBC 5.6. Hemoglobin 14.8. Platelet count 183. Sodium 138. Potassium 4.0. Troponin 0.036. 0.043. 0.034. Current home cardiac medications include hydralazine 50 mg 3 times a day, carvedilol 25 mg twice a day, losartan 150mg daily, Imdur 30 mg daily, Lipitor 80 mg daily, aspirin 81 mg daily Echocardiogram completed reveals ejection fraction 20-25%, severe mitral regurgitation, [id number] tricuspid regurgitation, mild pulmonary hypertension REVIEW OF SYSTEMS: At the time of my exam: CONSTITUTIONAL: Denies fever or chills. HEENT: Denies blurred vision, vision changes, or eye pain. Denies hemoptysis CARDIOVASCULAR: Denies chest pain. Denies orthopnea. Denies PND. Denies palpi tations RESPIRATORY: Reports shortness of breath. GASTROINTESTINAL: Denies abdominal pain. Denies nausea or vomiting. HEMATOLOGIC: Denies bleeding disorders. GENITOURINARY: Denies any blood in urine. SKIN: Denies pruitis. Denies rash. PHYSICAL EXAM: VITAL SIGNS: Reviewed. GENERAL: Well-developed in no acute distress. HEENT: Head is normocephalic. Pupils are equal, round. Sclerae anicteric. Mucous membranes of the mouth are moist. Neck supple. No JVD or thyromegaly LUNGS: Respirations even and unlabored. Lungs essentially clear to auscultation bilaterally. HEART: Regular rate and rhythm. S1 and S2 heard. Systolic murmur noted. ABDOMEN: Soft. Nondistended. Nontender. EXTREMITIES: Normal range of motion. No clubbing or cyanosis. Peripheral pulses intact. No lower extremity edema NEUROLOGIC: Awake and alert. Oriented x 3. ASSESSMENT: Unstable angina Coronary artery disease with previous PCI to LAD in 2017 Ischemic cardiomyopathy, ejection fraction 5%, with previous AICD implantation Valvular heart disease: Severe mitral regurgitation Hypertension Hyperlipidemia Nicotine dependence Medication noncompliance PLAN: Resume home cardiac occasions Continue IV heparin Patient currently unable to lay flat for cardiac catheterization. Will provide Lasix 40 mg IV 1 dose now and schedule patient for cardiac catheterization tomorrow with Dr. Ambrocio Further recommendations pending patient's course Nurse practitioner note has been reviewed by physician. Signing provider agrees with the documented findings, assessment, and plan of care. Past Medical History Past Medical History: Coronary Artery Disease (CAD), Heart Failure, Hyperlipidemia, Hypertension, Myocardial Infarction ([place]) Additional Past Medical History / Comment(s): See Jerman's H&P,3rd degree heart block, ischemic cardiomyopathy, nonsustained Vtach, pt has AICD/pacer, hemorrhoids, lower GI bleed, benign colon polyp. Last Myocardial Infarction Date:: 01/07/18 History of Any Multi-Drug Resistant Organisms: None Reported Past Surgical History: AICD, Heart Catheterization With Stent, Pacemaker Additional Past Surgical History / Comment(s): 2018 Pacer then AICD/ PCI with stent, colonoscopy/benign polypectomy, oral surgery for teeth Past Anesthesia/Blood Transfusion Reactions: No Reported Reaction Date of Last Stent Placement:: 01/07/2018 Type of Cardiac Device: Permanent Pacemaker, AICD Device Placement Date:: 01/07/18 Past Psychological History: No Psychological Hx Reported Smoking Status: Current every day smoker Past Alcohol Use History: None Reported Past Drug Use History: None Reported - Past Family History Mother History Unknown: Yes Family Medical History: No Reported History Additional Family Medical History / Comment(s): Back problems. Father History Unknown: Yes Family Medical History: No Reported History Medications and Allergies Home Medications Medication Instructions Recorded Confirmed Type Losartan Potassium 150 mg PO DAILY 11/13/20 08/02/21 History Multivits,Th W-Ca,Fe,Oth Min 1 tab PO DAILY 11/13/20 08/02/21 History [Therapeutic M] Isosorbide Mononitrate ER [Imdur] 30 mg PO DAILY #30 tab 11/14/20 08/02/21 Rx Albuterol Sulfate [Proair Hfa] 2 puff INHALATION RT-BID 08/02/21 08/02/21 History Aspirin 81 mg PO DIRECTED 08/02/21 08/02/21 History Atorvastatin [Lipitor] 80 mg PO DIRECTED 08/02/21 08/02/21 History Docusate [Colace] 100 mg PO BID PRN 08/02/21 08/02/21 History Fluticasone/Salmeterol [Advair 1 puff INHALATION DIRECTED 08/02/21 08/02/21 History 250-50 Diskus] Tiotropium [place] [Spiriva] 1 cap INHALATION RT-DAILY 08/02/21 08/02/21 History carvediloL 25 mg PO AC-BID 08/02/21 08/02/21 History hydrALAZINE HCL [Apresoline] 50 mg PO AC-TID 08/02/21 08/02/21 History Allergies Allergy/AdvReac Type Severity Reaction Status Date / Time Milk Containing Products AdvReac Nausea & Verified 08/02/21 08:15 [Dairy] Vomiting & Diarrhea Physical Exam Vitals: Vital Signs Temp Pulse Resp BP Pulse Ox 08/02/21 09:25 97.7 F 78 20 154/116 100 08/02/21 08:05 78 20 154/116 100 08/02/21 07:38 82 20 149/106 100 08/02/21 05:50 80 20 132/99 98 08/02/21 05:08 24 08/02/21 05:00 79 20 128/94 98 08/02/21 04:05 97.7 F 90 25 H 156/110 98 Intake and Output 08/01/21 08/02/21 08/02/21 22:59 06:59 14:59 Intake Total 0 Balance 0 Intake: Oral 0 Other: # Voids 2 Weight 104.326 kg Results 08/02/21 04:44 08/02/21 04:44 Cardiac Enzymes 08/02/21 08/02/21 08/02/21 Range/Units 04:44 04:44 08:08 AST 56 (17-59) U/L Troponin I 0.036 H* 0.043 H* (0.000-0.034) ng/mL 08/02/21 Range/Units 10:47 AST (17-59) U/L Troponin I 0.034 (0.000-0.034) ng/mL Coagulation 08/02/21 Range/Units 04:44 PT 10.5 (9.0-12.0) sec APTT 23.8 (22.0-30.0) sec CBC 08/02/21 Range/Units 04:44 WBC 5.6 (3.8-10.6) k/uL RBC 4.97 (4.30-5.90) m/uL Hgb 14.8 (13.0-17.5) gm/dL Hct 44.8 (39.0-53.0) % Plt Count 183 (150-450) k/uL Comprehensive Metabolic Panel 08/02/21 Range/Units 04:44 Sodium 138 (137-145) mmol/L Potassium 4.0 (3.5-5.1) mmol/L Chloride 110 H (98-107) mmol/L Carbon Dioxide 18 L (22-30) mmol/L BUN 16 (9-20) mg/dL Creatinine 1.23 (0.66-1.25) mg/dL Glucose 105 H (74-99) mg/dL Calcium 9.2 (8.4-10.2) mg/dL AST 56 (17-59) U/L ALT 32 (4-49) U/L Alkaline Phosphatase 122 (38-126) U/L Total Protein 7.3 (6.3-8.2) g/dL Albumin 3.7 (3.5-5.0) g/dL Current Medications Generic Name Dose Route Start Last Admin Trade Name Freq PRN Reason Stop Dose Admin Aspirin 81 mg 08/03/21 09:00 Aspirin 81 Mg PO DAILY [facility] Atorvastatin Calcium 80 mg 08/02/21 21:00 Atorvastatin 80 Mg Tab PO HS [facility] Carvedilol 25 mg 08/02/21 10:45 08/02/21 11:11 Carvedilol 12.5 Mg Tab PO 25 mg AC-BID [facility] Administration Hydralazine HCl 50 mg 08/02/21 12:30 08/02/21 11:11 Hydralazine Hcl 50 Mg Tab PO 50 mg AC-TID [facility] Administration Heparin Sodium/Sodium Chloride 250 mls @ 10 mls/hr 08/02/21 07:00 08/02/21 07:27 25,000 unit/ Sodium Chloride IV 9.585 units/kg/hr .Q24H [facility] 10 mls/hr Administration Protocol 9.585 UNITS/KG/HR Isosorbide Mononitrate 30 mg 08/02/21 10:45 08/02/21 11:11 Isosorbide Mononitrate Er 30 Mg Tab.Er.24h PO 30 mg DAILY [facility] Administration Losartan Potassium 150 mg 08/02/21 10:45 08/02/21 11:12 Losartan 50 Mg Tab PO 150 mg DAILY [facility] Administration Morphine Sulfate 4 mg 08/02/21 06:46 08/02/21 07:23 Morphine Sulfate 4 Mg/Ml Syringe IV 4 mg Q5M PRN Administration Chest Pain Nitroglycerin 0.4 mg 08/02/21 06:46 08/02/21 08:41 Nitroglycerin Sl Tabs 0.4 Mg Tab SUBLINGUAL 0.4 mg Q5M PRN Administration Chest Pain Intake and Output 08/01/21 08/02/21 08/02/21 22:59 06:59 14:59 Intake Total 0 Balance 0 Intake: Oral 0 Other: # Voids 2 Weight 104.326 kg 08/02/21 04:44 08/02/21 04:44
--- NOTE | 2021-08-02 18:45 | P.HPIM ---
History of Present Illness H&P Date: 08/02/21 Chief Complaint: Shortness of Breath 51-year-old man who presents to have evaluation for a heavy sensation on his chest and also shortness of breath. Patient states that the symptoms have been there for approximately 3 days now, but have gotten worse over the course of ton ight. Patient states that he believes it's because he has not been taking all of his cardiac medications. He states that he doesn't like the way that they make him feel, and in addition he has run out of the aspirin that he usually takes. Patient denies diaphoresis. No nausea or vomiting. Review of Systems REVIEW OF SYSTEMS: CONSTITUTIONAL: No fever, no malaise, no fatigue. HEENT: No recent visual problems or hearing problems. Denied any sore throat. CARDIOVASCULAR: No chest pain, orthopnea, PND, no palpitations, no syncope. PULMONARY: No shortness of breath, no cough, no hemoptysis. GASTROINTESTINAL: No diarrhea, no nausea, no vomiting, no abdominal pain. NEUROLOGICAL: No headaches, no weakness, no numbness. HEMATOLOGICAL: Denies any bleeding or petechiae. GENITOURINARY: Denies any burning micturition, frequency, or urgency. MUSCULOSKELETAL/RHEUMATOLOGICAL: Denies any joint pain, swelling, or any muscle pain. ENDOCRINE: Denies any polyuria or polydipsia. The rest of the 14-point review of systems is negative. Past Medical History Past Medical History: Coronary Artery Disease (CAD), Heart Failure, Hyperlipidemia, Hypertension, Myocardial Infarction ([place]) Additional Past Medical History / Comment(s): See Krdonnyen's H&P,3rd degree heart block, ischemic cardiomyopathy, nonsustained Vtach, pt has AICD/pacer, hemorrhoids, lower GI bleed, benign colon polyp. Last Myocardial Infarction Date:: 01/07/18 History of Any Multi-Drug Resistant Organisms: None Reported Past Surgical History: AICD, Heart Catheterization With Stent, Pacemaker Additional Past Surgical History / Comment(s): 2018 Pacer then AICD/ PCI with stent, colonoscopy/benign polypectomy, oral surgery for teeth Past Anesthesia/Blood Transfusion Reactions: No Reported Reaction Date of Last Stent Placement:: 01/07/2018 Type of Cardiac Device: Permanent Pacemaker, AICD Device Placement Date:: 01/07/18 Past Psychological History: No Psychological Hx Reported Smoking Status: Current every day smoker Past Alcohol Use History: None Reported Past Drug Use History: None Reported - Past Family History Mother History Unknown: Yes Family Medical History: No Reported History Additional Family Medical History / Comment(s): Back problems. Father History Unknown: Yes Family Medical History: No Reported History Medications and Allergies Home Medications Medication Instructions Recorded Confirmed Type Losartan Potassium 150 mg PO DAILY 11/13/20 08/02/21 History Multivits,Th W-Ca,Fe,Oth Min 1 tab PO DAILY 11/13/20 08/02/21 History [Therapeutic M] Isosorbide Mononitrate ER [Imdur] 30 mg PO DAILY #30 tab 11/14/20 08/02/21 Rx Albuterol Sulfate [Proair Hfa] 2 puff INHALATION RT-BID 08/02/21 08/02/21 History Aspirin 81 mg PO DIRECTED 08/02/21 08/02/21 History Atorvastatin [Lipitor] 80 mg PO DIRECTED 08/02/21 08/02/21 History Docusate [Colace] 100 mg PO BID PRN 08/02/21 08/02/21 History Fluticasone/Salmeterol [Advair 1 puff INHALATION DIRECTED 08/02/21 08/02/21 History 250-50 Diskus] Tiotropium [place] [Spiriva] 1 cap INHALATION RT-DAILY 08/02/21 08/02/21 History carvediloL 25 mg PO AC-BID 08/02/21 08/02/21 History hydrALAZINE HCL [Apresoline] 50 mg PO AC-TID 08/02/21 08/02/21 History Allergies Allergy/AdvReac Type Severity Reaction Status Date / Time Milk Containing Products AdvReac Nausea & Verified 08/02/21 08:15 [Dairy] Vomiting & Diarrhea Physical Exam Vitals: Vital Signs Temp Pulse Resp BP Pulse Ox 08/02/21 09:25 97.7 F 78 20 154/116 100 08/02/21 08:05 78 20 154/116 100 08/02/21 07:38 82 20 149/106 100 08/02/21 05:50 80 20 132/99 98 08/02/21 05:08 24 08/02/21 05:00 79 20 128/94 98 08/02/21 04:05 97.7 F 90 25 H 156/110 98 Intake and Output 08/01/21 08/02/21 08/02/21 22:59 06:59 14:59 Intake Total 0 Balance 0 Intake: Oral 0 Other: # Voids 2 Weight 104.326 kg General appearance: alert, in no apparent distress Head exam: Present: atraumatic, normocephalic Eye exam: Present: normal appearance. Absent: scleral icterus, conjunctival injection ENT exam: Present: normal oropharynx Neck exam: Present: normal inspection, full ROM Respiratory exam: Present: normal lung sounds bilaterally. Absent: respiratory distress, wheezes, rales, rhonchi, stridor Cardiovascular Exam: Present: regular rate, normal rhythm, normal heart sounds. Absent: systolic murmur, diastolic murmur, rubs, gallop GI/Abdominal exam: Present: soft. Absent: distended, tenderness, guarding, rebound, rigid, mass Extremities exam: Present: normal inspection, normal capillary refill. Absent: pedal edema, calf tenderness Back exam: Present: normal inspection. Absent: CVA tenderness (R), CVA tenderness (L) Neurological exam: Present: alert Skin exam: Present: warm, dry, intact, normal color. Absent: rash Results CBC & Chem 7: 08/02/21 04:44 08/02/21 04:44 Labs: Abnormal Lab Results - Last 24 Hours (Table) 08/02/21 08/02/21 08/02/21 Range/Units 04:44 04:44 08:08 Chloride 110 H (98-107) mmol/L Carbon Dioxide 18 L (22-30) mmol/L Glucose 105 H (74-99) mg/dL Troponin I 0.036 H* 0.043 H* (0.000-0.034) ng/mL Assessment and Plan Assessment: 1. Chest pain/unstable angina; patient has a history of coronary artery disease with previous PCI to LAD in 2018; last echocardiogram reveals an EF of 20-25% - We will monitor and trend EKG and trend troponin; she has been placed on IV heparin; continue with aspirin - Patient is scheduled for cardiac catheterization morning 2. Ischemic cardiomyopathy/ /AICD implantation - Patient has an EF of 20-25% 3. Valvular heart disease; severe mitral regurgitation; stable 4. Hypertension; hydralazine 50 migraines. 3 times a day; Coreg 25 mg twice a day 5. Hyperlipidemia; Lipitor 80 mg by mouth daily at bedtime 6. Nicotine dependence; counseling done on need for smoking cessation DVT prophylaxis; SCDs/IV heparin CODE STATUS; full code
[2021-08-02] MEDS: SYMBICORT 80-4.5 MCG INHALER INHALATION SCH (19:39)
[2021-08-02] MEDS: ATORVASTATIN 80 MG TAB PO SCH (22:05)
[2021-08-02] MEDS: SODIUM CHLORIDE 0.9% 1,000 ML in EMPTY BAG 1 BAG IV SCH (22:06)
[2021-08-03] MEDS: LOSARTAN 50 MG TAB PO SCH (03:48)
[2021-08-03] MEDS: ISOSORBIDE MONONITRATE ER 30 MG TAB.ER.24H PO SCH (03:48)
[2021-08-03] MEDS: hydrALAZINE HCL 50 MG TAB PO SCH ×3 (03:49→18:09)
[2021-08-03] MEDS: carvediloL 12.5 MG TAB PO SCH ×2 (03:49→18:10)
[2021-08-03] MEDS: ASPIRIN 81 MG PO SCH ×2 (03:49→11:18)
[2021-08-03 04:22] LABS: Basophils % (A) 1 %; Eosinophils # (A) 0.1 k/uL (0-0.7); Eosinophils % (A) 1 %; HCT 46.5 % (39.0-53.0); HGB 15.4 gm/dL (13.0-17.5); Lymphocytes # (A) 2.7 k/uL (1.0-4.8); Lymphocytes % (A) 31 %; MCH 29.9 pg (25.0-35.0); MCHC 33.2 g/dL (31.0-37.0); MCV 89.9 fL (80.0-100.0); Mean Platelet Volume 9.3; Monocytes # (A) 0.7 k/uL (0-1.0); Monocytes % (A) 8 %; Neutrophils # (A) 5.1 k/uL (1.3-7.7); Neutrophils % (A) 58 %; Platelet Count 201 k/uL (150-450); RBC 5.17 m/uL (4.30-5.90); RDW 14.3 % (11.5-15.5); WBC 8.9 k/uL (3.8-10.6)
[2021-08-03 04:46] LABS: Calcium 9.3 mg/dL (8.4-10.2); Potassium 3.7 mmol/L (3.5-5.1)
[2021-08-03] MEDS ORDERED: HEPARIN SODIUM,PORCINE 2,500 UNIT in SODIUM CHLORIDE 0.9% 250 ML IRRIGATION PRN (07:00)
[2021-08-03] MEDS ORDERED: ATORVASTATIN 80 MG TAB PO ONE (07:00)
[2021-08-03] MEDS ORDERED: ASPIRIN 325 MG TAB PO ONE (07:00)
[2021-08-03] MEDS ORDERED: HEPARIN SODIUM,PORCINE 10,000 UNIT in SODIUM CHLORIDE 0.9% 1,000 ML IRRIGATION PRN (07:00)
[2021-08-03] MEDS: IPRATROPIUM 0.5 MG/2.5 ML NEBU INHALATION SCH ×4 (08:05→20:01)
[2021-08-03] MEDS: SYMBICORT 80-4.5 MCG INHALER INHALATION SCH ×2 (08:05→20:01)
[2021-08-03] MEDS ORDERED: ASPIRIN 325 MG TAB PO SCH (09:00)
[2021-08-03 09:46] LABS: Chol/HDL Ratio 6.08 Ratio; LDL Cholesterol,Calculated 147.6 mg/dL (0.0-131.0); VLDL Calculation 40.4 mg/dL (5.00-40.00)
--- NOTE | 2021-08-03 10:19 | P.PN ---
Subjective Progress Note Date: 08/03/21 HISTORY OF PRESENT ILLNESS: This is a 51-year-old male with a past medical history significant for coronary artery disease with PCI to the LAD in 2018, ischemic cardiomyopathy with an ejection fraction around 25% with AICD implantation, hypertension, hyperlipidemia, and nicotine dependence. Patient follows in the office with Dr. Zarco. We have been asked to see the patient in consultation for chest pain. Patient examined at the bedside. Patient presented to the hospital with a chief complaint of chest discomfort. He states he has been having intermittent chest pain over the past 3 days. He states it is a pressure-like sensation in the middle of his chest and it goes down into his left arm. He also reports having left arm numbness. He reports shortness of breath. He states the pain got worse this morning which prompted him to come to the emergency room. Tavia ent states he received aspirin in the emergency room which relieved his chest pain. He is currently chest pain-free at the time of examination but he complains of significant shortness of breath and is unable to lay flat in bed. Patient also reports that he quit taking his medications about one month ago because he did not like the way they made him feel and he states he was tired. Patient also reports he has not been taking a baby aspirin daily because he ran out. EKG reveals sinus mechanism with first-degree AV block. LVH. Right bundle branch block. Chest xray no active process. Laboratory data: WBC 5.6. Hemoglobin 14.8. Platelet count 183. Sodium 138. Potassium 4.0. Troponin 0.036. 0.043. 0.034. Current home cardiac medications include hydralazine 50 mg 3 times a day, carved ilol 25 mg twice a day, losartan 150mg daily, Imdur 30 mg daily, Lipitor 80 mg daily, aspirin 81 mg daily Echocardiogram completed reveals ejection fraction 20-25%, severe mitral regurgitation, [id number] tricuspid regurgitation, mild pulmonary hypertension 08/03/2021 Patient examined this morning at the bedside. Patient denies chest pain or pressure. Patient reports his shortness of breath has significantly improved. He remains on IV heparin. Blood pressure 144/90. Telemetry reveals sinus mechanism with heart rate in the 70s. He is on room air with oxygen saturations greater than 92%. PHYSICAL EXAM: VITAL SIGNS: Reviewed. GENERAL: Well-developed in no acute distress. HEENT: Head is normocephalic. Pupils are equal, round. Sclerae anicteric. Mucous membranes of the mouth are moist. Neck supple. No JVD or thyromegaly LUNGS: Respirations even and unlabored. Lungs essentially clear to auscultation bilaterally. HEART: Regular rate and rhythm. S1 and S2 heard. Systolic murmur noted. ABDOMEN: Soft. Nondistended. Nontender. EXTREMITIES: Normal range of motion. No clubbing or cyanosis. Peripheral pulses intact. No lower extremity edema NEUROLOGIC: Awake and alert. Oriented x 3. ASSESSMENT: Unstable angina Coronary artery disease with previous PCI to LAD in 2018 Ischemic cardiomyopathy, ejection fraction 5%, with previous AICD implantation Valvular heart disease: Severe mitral regurgitation Hypertension Hyperlipidemia Nicotine dependence Medication noncompliance PLAN: Continue IV heparin Continue additional cardiac medications Will hold off on cardiac cath today per Dr. Ambrocio Patient will be scheduled for RAMIRO and cardiac cath on Thursday with Dr. Zarco Further recommendations pending patient's course Nurse practitioner note has been reviewed by physician. Signing provider agrees with the documented findings, assessment, and plan of care. Objective - Vital Signs Vital signs: Vital Signs Temp 98.2 F 08/03/21 04:00 Pulse 80 08/03/21 04:00 Resp 18 08/03/21 04:00 BP 144/90 08/03/21 04:00 Pulse Ox 95 08/03/21 06:46 Intake & Output 08/02/21 08/03/21 08/03/21 18:59 06:59 18:59 Intake Total 592.333 596.271 Output Total 300 Balance 592.333 296.271 Weight 104.326 kg 98.2 kg Intake: Intake, IV Titration 112.333 236.271 Amount Heparin Sod,Pork in 0.45% 112.333 136.271 NaCl 25,000 unit In 0.45 % NaCl 1 250ml.bag @ 9. 585 UNITS/KG/HR 10 mls/hr IV .Q24H [facility] Rx#: [id number] Sodium Chloride 0.9% 1, 100 000 ml In Empty Bag 1 bag @ 1 ML/KG/HR 104.326 mls /hr IV .Q9H36M [facility] Rx#: [id number] Oral 480 360 Output: Urine 300 Other: # Voids 2 2 - Labs CBC & Chem 7: 08/03/21 03:33 08/03/21 03:33 Labs: Abnormal Lab Results - Last 24 Hours (Table) 08/03/21 Range/Units 03:33 Chloride 108 H (98-107) mmol/L Carbon Dioxide 21 L (22-30) mmol/L Triglycerides 202.00 H (0.00-149.00) mg/dL Cholesterol 225.00 H (0.00-200.00) mg/dL LDL Cholesterol, Calc 147.6 H (0.0-131.0) mg/dL VLDL Cholesterol, Calc 40.40 H (5.00-40.00) mg/dL HDL Cholesterol 37.00 L (40.00-60.00) mg/dL
[2021-08-03] MEDS ORDERED: NICOTINE 14MG/24HR PATCH TRANSDERM STA (10:47)
[2021-08-03] MEDS: SODIUM CHLORIDE 0.9% 1,000 ML in EMPTY BAG 1 BAG IV SCH (19:11)
--- NOTE | 2021-08-03 19:52 | P.PN ---
Subjective Progress Note Date: 08/03/21 Principal diagnosis: Chest pain/unstable angina Severe mitral regurgitation Ischemic cardiomyopathy/AICD implantation 51-year-old man who presents to have evaluation for a heavy sensation on his chest and also shortness of breath. Patient states that the symptoms have been there for approximately 3 days now, but have gotten worse over the course of t onight. Patient states that he believes it's because he has not been taking all of his cardiac medications. He states that he doesn't like the way that they make him feel, and in addition he has run out of the aspirin that he usually takes. Patient denies diaphoresis. No nausea or vomiting. Objective - Vital Signs Vital signs: Vital Signs Temp 98.1 F 08/03/21 08:00 Pulse 67 08/03/21 11:45 Resp 18 08/03/21 08:00 BP 128/79 08/03/21 08:00 Pulse Ox 99 08/03/21 08:00 Intake & Output 08/02/21 08/03/21 08/03/21 18:59 06:59 18:59 Intake Total 592.333 596.271 Output Total 300 Balance 592.333 296.271 Weight 104.326 kg 98.2 kg Intake: Intake, IV Titration 112.333 236.271 Amount Heparin Sod,Pork in 0.45% 112.333 136.271 NaCl 25,000 unit In 0.45 % NaCl 1 250ml.bag @ 9. 585 UNITS/KG/HR 10 mls/hr IV .Q24H [facility] Rx#: [id number] Sodium Chloride 0.9% 1, 100 000 ml In Empty Bag 1 bag @ 1 ML/KG/HR 104.326 mls /hr IV .Q9H36M [facility] Rx#: [id number] Oral 480 360 Output: Urine 300 Other: Voiding Method Toilet # Voids 2 2 - Exam General appearance: alert, in no apparent distress Head exam: Present: atraumatic, normocephalic Eye exam: Present: normal appearance. Absent: scleral icterus, conjunctival injection ENT exam: Present: normal oropharynx Neck exam: Present: normal inspection, full ROM Respiratory exam: Present: normal lung sounds bilaterally. Absent: respiratory distress, wheezes, rales, rhonchi, stridor Cardiovascular Exam: Present: regular rate, normal rhythm, normal heart sounds. Absent: systolic murmur, diastolic murmur, rubs, gallop GI/Abdominal exam: Present: soft. Absent: distended, tenderness, guarding, rebound, rigid, mass Extremities exam: Present: normal inspection, normal capillary refill. Absent: pedal edema, calf tenderness Back exam: Present: normal inspection. Absent: CVA tenderness (R), CVA tenderness (L) Neurological exam: Present: alert Skin exam: Present: warm, dry, intact, normal color. Absent: rash - Labs CBC & Chem 7: 08/03/21 03:33 08/03/21 03:33 Labs: Abnormal Lab Results - Last 24 Hours (Table) 08/03/21 Range/Units 03:33 Chloride 108 H (98-107) mmol/L Carbon Dioxide 21 L (22-30) mmol/L Triglycerides 202.00 H (0.00-149.00) mg/dL Cholesterol 225.00 H (0.00-200.00) mg/dL LDL Cholesterol, Calc 147.6 H (0.0-131.0) mg/dL VLDL Cholesterol, Calc 40.40 H (5.00-40.00) mg/dL HDL Cholesterol 37.00 L (40.00-60.00) mg/dL Assessment and Plan Assessment: 1. Chest pain/unstable angina; patient has a history of coronary artery disease with previous PCI to LAD in 2018; last echocardiogram reveals an EF of 20-25% - We will monitor and trend EKG and trend troponin; she has been placed on IV heparin; continue with aspirin - Patient is scheduled for cardiac catheterization morning 2. Ischemic cardiomyopathy/ /AICD implantation - Patient has an EF of 20-25% 3. Valvular heart disease; severe mitral regurgitation; stable 4. Hypertension; hydralazine 50 migraines. 3 times a day; Coreg 25 mg twice a day 5. Hyperlipidemia; Lipitor 80 mg by mouth daily at bedtime 6. Nicotine dependence; counseling done on need for smoking cessation DVT prophylaxis; SCDs/IV heparin CODE STATUS; full code
[2021-08-03] MEDS: HEPARIN SODIUM,PORCINE/PF 5,000 UNIT/0.5 ML SYRINGE SQ SCH (20:05)
[2021-08-03] MEDS: ATORVASTATIN 80 MG TAB PO SCH (20:05)
[2021-08-04] MEDS: SODIUM CHLORIDE 0.9% 1,000 ML in EMPTY BAG 1 BAG IV SCH ×2 (05:15→23:35)
[2021-08-04] MEDS: carvediloL 12.5 MG TAB PO SCH ×2 (05:18→18:09)
[2021-08-04] MEDS: hydrALAZINE HCL 50 MG TAB PO SCH ×3 (05:18→18:09)
[2021-08-04] MEDS: IPRATROPIUM 0.5 MG/2.5 ML NEBU INHALATION SCH ×4 (07:54→19:23)
[2021-08-04] MEDS: ASPIRIN 81 MG PO SCH (09:29)
[2021-08-04] MEDS: ISOSORBIDE MONONITRATE ER 30 MG TAB.ER.24H PO SCH (09:29)
[2021-08-04] MEDS: LOSARTAN 50 MG TAB PO SCH (09:29)
[2021-08-04] MEDS: NICOTINE 14MG/24HR PATCH TRANSDERM SCH (09:30)
[2021-08-04] MEDS: HEPARIN SODIUM,PORCINE/PF 5,000 UNIT/0.5 ML SYRINGE SQ SCH ×2 (09:30→20:55)
--- NOTE | 2021-08-04 10:47 | P.PN ---
Subjective Progress Note Date: 08/04/21 HISTORY OF PRESENT ILLNESS: This is a 51-year-old male with a past medical history significant for coronary artery disease with PCI to the LAD in 2018, ischemic cardiomyopathy with an ejection fraction around 25% with AICD implantation, hypertension, hyperlipidemia, and nicotine dependence. Patient follows in the office with Dr. Zarco. We have been asked to see the patient in consultation for chest pain. Patient examined at the bedside. Patient presented to the hospital with a chief complaint of chest discomfort. He states he has been having intermittent chest pain over the past 3 days. He states it is a pressure-like sensation in the middle of his chest and it goes down into his left arm. He also reports having left arm numbness. He reports shortness of breath. He states the pain got worse this morning which prompted him to come to the emergency room. Tavia ent states he received aspirin in the emergency room which relieved his chest pain. He is currently chest pain-free at the time of examination but he complains of significant shortness of breath and is unable to lay flat in bed. Patient also reports that he quit taking his medications about one month ago because he did not like the way they made him feel and he states he was tired. Patient also reports he has not been taking a baby aspirin daily because he ran out. EKG reveals sinus mechanism with first-degree AV block. LVH. Right bundle branch block. Chest xray no active process. Laboratory data: WBC 5.6. Hemoglobin 14.8. Platelet count 183. Sodium 138. Potassium 4.0. Troponin 0.036. 0.043. 0.034. Current home cardiac medications include hydralazine 50 mg 3 times a day, carved ilol 25 mg twice a day, losartan 150mg daily, Imdur 30 mg daily, Lipitor 80 mg daily, aspirin 81 mg daily Echocardiogram completed reveals ejection fraction 20-25%, severe mitral regurgitation, [id number] tricuspid regurgitation, mild pulmonary hypertension 08/03/2021 Patient examined this morning at the bedside. Patient denies chest pain or pressure. Patient reports his shortness of breath has significantly improved. He remains on IV heparin. Blood pressure 144/90. Telemetry reveals sinus mechanism with heart rate in the 70s. He is on room air with oxygen saturations greater than 92%. 08/04/2021 Patient examined this morning at the bedside. He denies chest pain or pressure. He denies shortness of breath. Vital signs are stable. PHYSICAL EXAM: VITAL SIGNS: Reviewed. GENERAL: Well-developed in no acute distress. HEENT: Head is normocephalic. Pupils are equal, round. Sclerae anicteric. Mucous membranes of the mouth are moist. Neck supple. No JVD or thyromegaly LUNGS: Respirations even and unlabored. Lungs essentially clear to auscultation bilaterally. HEART: Regular rate and rhythm. S1 and S2 heard. Systolic murmur noted. ABDOMEN: Soft. Nondistended. Nontender. EXTREMITIES: Normal range of motion. No clubbing or cyanosis. Peripheral pulses intact. No lower extremity edema NEUROLOGIC: Awake and alert. Oriented x 3. ASSESSMENT: Unstable angina, Non-STEMI Coronary artery disease with previous PCI to LAD in 2017 Ischemic cardiomyopathy, ejection fraction 5%, with previous AICD implantatio n Valvular heart disease: Severe mitral regurgitation Hypertension Hyperlipidemia Nicotine dependence Medication noncompliance PLAN: Continue current cardiac medications NPO at midnight Patient will be scheduled for RAMIRO and cardiac cath on Thursday with Dr. Zarco Further recommendations pending patient's course Nurse practitioner note has been reviewed by physician. Signing provider agrees with the documented findings, assessment, and plan of care. Objective - Vital Signs Vital signs: Vital Signs Temp 98.3 F 08/04/21 04:00 Pulse 68 08/04/21 04:00 Resp 16 08/04/21 04:00 BP 132/84 08/04/21 04:00 Pulse Ox 95 08/04/21 04:00 Intake & Output 08/03/21 08/04/21 08/04/21 18:59 06:59 18:59 Intake Total 480 Balance 480 Weight 97 kg Intake: Oral 480 Other: Voiding Method Toilet Toilet # Voids 1 - Labs CBC & Chem 7: 08/03/21 03:33 08/03/21 03:33
[2021-08-04] MEDS: SYMBICORT 80-4.5 MCG INHALER INHALATION SCH ×2 (11:57→19:23)
[2021-08-04] MEDS: ATORVASTATIN 80 MG TAB PO SCH (20:55)
[2021-08-04] MEDS: HEPARIN SOD,PORK IN 0.45% NACL 25,000 UNIT in 0.45% NACL 1 250ML.BAG IV SCH (23:45)
[2021-08-05] MEDS: SODIUM CHLORIDE 0.9% 1,000 ML in EMPTY BAG 1 BAG IV SCH ×2 (04:01→08:41)
[2021-08-05] MEDS: carvediloL 12.5 MG TAB PO SCH (06:50)
[2021-08-05] MEDS: hydrALAZINE HCL 50 MG TAB PO SCH ×2 (06:50→11:51)
[2021-08-05] MEDS ORDERED: HEPARIN SODIUM,PORCINE 2,500 UNIT in SODIUM CHLORIDE 0.9% 250 ML IRRIGATION PRN (07:00)
[2021-08-05] MEDS ORDERED: HEPARIN SODIUM,PORCINE 10,000 UNIT in SODIUM CHLORIDE 0.9% 1,000 ML IRRIGATION PRN (07:00)
[2021-08-05] MEDS: IPRATROPIUM 0.5 MG/2.5 ML NEBU INHALATION SCH ×3 (07:33→16:12)
[2021-08-05] MEDS: SYMBICORT 80-4.5 MCG INHALER INHALATION SCH (07:33)
[2021-08-05] MEDS: LOSARTAN 50 MG TAB PO SCH (08:35)
[2021-08-05] MEDS: HEPARIN SODIUM,PORCINE/PF 5,000 UNIT/0.5 ML SYRINGE SQ SCH (08:35)
[2021-08-05] MEDS: ASPIRIN 81 MG PO SCH (08:35)
[2021-08-05] MEDS: ISOSORBIDE MONONITRATE ER 30 MG TAB.ER.24H PO SCH (08:35)
[2021-08-05] MEDS: NICOTINE 14MG/24HR PATCH TRANSDERM SCH (08:36)
[2021-08-05] MEDS ORDERED: SODIUM CHLORIDE 0.9% 1,000 ML in EMPTY BAG 1 BAG IV SCH (09:45)
[2021-08-05] MEDS ORDERED: LIDOCAINE 1% INJ 10MG/ML (20 ML MDV) ONE (10:15)
[2021-08-05] MEDS ORDERED: fentaNYL (PF) 50 MCG/ML 2 ML AMP ONE (10:15)
[2021-08-05] MEDS ORDERED: VERAPAMIL 2.5 MG/ML 2 ML AMP ONE (10:15)
[2021-08-05] MEDS ORDERED: HEPARIN SODIUM 1,000 UN/ML (10ML VL) ONE (10:15)
[2021-08-05 10:56] LABS: Calcium 9.7 mg/dL (8.4-10.2); Potassium 4.3 mmol/L (3.5-5.1)
[2021-08-05] MEDS ORDERED: MIDAZOLAM 2 MG/2 ML VIAL IV ONE (10:58)
[2021-08-05] MEDS ORDERED: fentaNYL (PF) 50 MCG/ML 2 ML AMP IV ONE (10:58)
[2021-08-05] MEDS ORDERED: LIDOCAINE 1% INJ 10MG/ML (20 ML MDV) SQ ONE ×2 (10:59→11:00)
[2021-08-05] MEDS ORDERED: HEPARIN SODIUM 1,000 UN/ML (10ML VL) IV ONE (11:03)
[2021-08-05] MEDS ORDERED: VERAPAMIL SYRINGE (5 MG/10 ML) INTRAARTER ONE (11:04)
[2021-08-05] MEDS ORDERED: IV FLUID CONTINUATION 700 ML IV ONE (11:17)
[2021-08-05] MEDS ORDERED: IOPAMIDOL-370 125ML BTL INJ ONE (11:17)
[2021-08-05] MEDS ORDERED: RX INFO: IV CONTRAST WAS GIVEN 1 EACH MISC MISCELLANE PRN (11:30)
[2021-08-05] MEDS ORDERED: SODIUM CHLORIDE 0.9% 1,000 ML IV SCH (11:30)
--- NOTE | 2021-08-05 11:36 | P.CARDCATH ---
Date of Procedure: 08/05/21 Preoperative Diagnosis: Unstable angina Procedure(s) Performed: Stable coronary artery disease with patent stent in the LAD and about 60% stenosis in the RCA Description of Procedure: HISTORY: This is a 51-year-old gentleman with history of cardiomyopathy ACD placement and ischemic heart disease with previous stent placement of the LAD who is admitted to the hospital with complaints of recurrent chest pains suggestive of possible unstable angina. His cardiac enzymes are flat. His EKG showed right bundle branch block. Patient is advised to have a cardiac catheterization for definite diagnosis. Echo Cardigan showed severe cardiomyopathy with ejection fraction 20-25% CONSENT:I have discussed the risks, benefits and alternative therapies for the above-mentioned procedure and for both sedation/analgesia as well as necessary blood product administration, if indicated, as they pertain to this patient. The patient has indicated understanding and acceptance of the risks and procedures discussed. PROCEDURE: Patient was brought to the lab in a fasting state. Patient was given some IV sedation. The right wrist is infiltrated with lidocaine and right radial artery was entered using Seldinger technique. A 6-Russian catheter was left in place and selective coronary arteriography was performed. Patient tolerated the procedure well. TR band was applied for hemostasis. No immediate complications were noted and patient was transferred to [facility] in a stable condition Conscious Sedation: Versed 1mg Fentanyl 50 g Duration 19minutes HEMODYNAMICS: The aortic pressure is about 120/70. Left ventricular end- diastolic pressure was about 20-25. No gradient across the aortic valve SELECTIVE CORONARY ARTERIOGRAPHY: LEFT MAIN: Normal length and free of occlusive disease THE LEFT ANTERIOR DESCENDING CORONARY ARTERY: Is a good caliber vessel wrapping around the apex and gives rise to good-sized septal and diagonal branches.. The stent is patent in the mid LAD THE LEFT CIRCUMFLEX AND IS CORONARY ARTERY: . This is a good caliber vessel giving rise to good-sized OM branch. Free of any occlusive disease THE RIGHT CORONARY ARTERY: . This is a good caliber vessel and codominant. Has stable 60% stenosis in midportion with ectatic changes in the mid to distal portion LEFT VENTRICULOGRAPHY: . This was not performed FINAL IMPRESSION: Stable coronary artery disease with patent stent in the mid LAD and about 60% stenosis in the mid RCA with ectatic changes of the RCA PLAN: . Continued medical therapy and risk factor modification PROGNOSIS: Fair
--- NOTE | 2021-08-05 11:41 | P.PN ---
Subjective Progress Note Date: 08/04/21 Principal diagnosis: Chest pain/unstable angina Severe mitral regurgitation Ischemic cardiomyopathy/AICD implantation 51-year-old man who presents to have evaluation for a heavy sensation on his chest and also shortness of breath. Patient states that the symptoms have been there for approximately 3 days now, but have gotten worse over the course of t onight. Patient states that he believes it's because he has not been taking all of his cardiac medications. He states that he doesn't like the way that they make him feel, and in addition he has run out of the aspirin that he usually takes. Patient denies diaphoresis. No nausea or vomiting. 08/04/2021 Patient is seen and evaluated in room at bedside; number of family members present in the room; patient was frustrated earlier in the morning and wanted to leave and get RAMIRO and cath as outpatient; detailed discussion with patient and he is agreeable to stay for testing tomorrow; patient remains chest pain-free but does report shortness of breath with activity Vital signs are reviewed and stable with a temperature of 98.0 pulse 70, respiration 18 and blood pressure 132/84 and saturation of 99% on room air Patient scheduled for RAMIRO and cardiac cath tomorrow morning; we will plan to continue on current medications and patient will be made nothing by mouth at mn dnight for RAMIRO and cardiac catheterization Objective - Vital Signs Vital signs: Vital Signs Temp 98.3 F 08/04/21 04:00 Pulse 68 08/04/21 04:00 Resp 16 08/04/21 04:00 BP 132/84 08/04/21 04:00 Pulse Ox 95 08/04/21 04:00 Intake & Output 08/03/21 08/04/21 08/04/21 18:59 06:59 18:59 Intake Total 480 Balance 480 Weight 97 kg Intake: Oral 480 Other: Voiding Method Toilet Toilet # Voids 1 - Exam General appearance: alert, in no apparent distress Head exam: Present: atraumatic, normocephalic Eye exam: Present: normal appearance. Absent: scleral icterus, conjunctival injection ENT exam: Present: normal oropharynx Neck exam: Present: normal inspection, full ROM Respiratory exam: Present: normal lung sounds bilaterally. Absent: respiratory distress, wheezes, rales, rhonchi, stridor Cardiovascular Exam: Present: regular rate, normal rhythm, normal heart sounds. Absent: systolic murmur, diastolic murmur, rubs, gallop GI/Abdominal exam: Present: soft. Absent: distended, tenderness, guarding, rebound, rigid, mass Extremities exam: Present: normal inspection, normal capillary refill. Absent: pedal edema, calf tenderness Back exam: Present: normal inspection. Absent: CVA tenderness (R), CVA tenderness (L) Neurological exam: Present: alert Skin exam: Present: warm, dry, intact, normal color. Absent: rash - Labs CBC & Chem 7: 08/03/21 03:33 08/05/21 10:25 Assessment and Plan Assessment: 1. Chest pain/unstable angina; patient has a history of coronary artery disease with previous PCI to LAD in 2018; last echocardiogram reveals an EF of 20-25% - We will monitor and trend EKG and trend troponin; she has been placed on IV heparin; continue with aspirin - Patient is scheduled for cardiac catheterization morning 2. Ischemic cardiomyopathy/ /AICD implantation - Patient has an EF of 20-25% 3. Valvular heart disease; severe mitral regurgitation; stable 4. Hypertension; hydralazine 50 migraines. 3 times a day; Coreg 25 mg twice a day 5. Hyperlipidemia; Lipitor 80 mg by mouth daily at bedtime 6. Nicotine dependence; counseling done on need for smoking cessation DVT prophylaxis; SCDs/IV heparin CODE STATUS; full code
[2021-08-05 12:08] VITALS: TEMP 97.8
--- NOTE | 2021-08-05 12:36 | P.PN ---
Subjective This is a 51-year-old male with a past medical history significant for coronary artery disease with PCI to the LAD in 2018, ischemic cardiomyopathy with an ejection fraction around 25% with AICD implantation, hypertension, hyperlipidemia, and nicotine dependence. Patient follows in the office with Dr. Zarco. We have been asked to see the patient in consultation for chest pain. Patient presented to the hospital with a chief complaint of chest discomfort and shortness of breath. Patient also reports that he quit taking his medications about one month ago because he did not like the way they made him feel and he states he was tired. Troponin 0.036. 0.043. 0.034. Echocardiogram completed reveals ejection fraction 20-25%, severe mitral regurgitation, qxpl-ic-xpcarhha tricuspid regurgitation, mild pulmonary hypertension 08/05/21 Patient examined this morning at the bedside. He denies chest pain or pressure. He denies shortness of breath. Vital signs are stable. Sodium 139, potassium 4.3, BUN 17, serum creatinine 1.2. Patient is currently maintained on aspirin 81 mg daily, atorvastatin 80 mg nightly, Coreg 25 mg twice a day, hydralazine 50 mg 3 times a day, Imdur 30 mg daily, losartan 150 mg daily. PHYSICAL EXAM: VITAL SIGNS: Reviewed. GENERAL: Well-developed in no acute distress. HEENT: Neck supple. No JVD LUNGS: Respirations even and unlabored. Lungs essentially clear to auscultation bilaterally. HEART: Regular rate and rhythm. S1 and S2 heard. Systolic murmur noted. ABDOMEN: Soft. Nondistended. Nontender. EXTREMITIES: Normal range of motion. No clubbing or cyanosis. Peripheral pulses intact. No lower extremity edema NEUROLOGIC: Awake and alert. Oriented x 3. ASSESSMENT: Unstable angina, Non-STEMI Coronary artery disease with previous PCI to LAD in 2018 Ischemic cardiomyopathy, ejection fraction 20-25%, with previous AICD implantation Valvular heart disease: Severe mitral regurgitation Hypertension Hyperlipidemia Nicotine dependence Medication noncompliance PLAN: Plan for cardiac catheterization with Dr. Zarco today. I have discussed the risks, benefits and alternative therapies for the above- mentioned procedure and for both sedation/analgesia as well as necessary blood product administration, if indicated, as they pertain to this patient. The patient has indicated understanding and acceptance of the risks and procedures discussed. Questions have been answered appropriately and he is agreeable to move forward with the above-stated procedure. Further recommendations based on clinical course. Nurse practitioner note has been reviewed by physician. Signing provider agrees with the documented findings, assessment, and plan of care. Objective - Vital Signs Vital signs: Vital Signs Temp 97.8 F 08/05/21 12:00 Pulse 83 08/05/21 12:15 Resp 18 08/05/21 12:15 BP 154/117 08/05/21 12:15 Pulse Ox 99 08/05/21 12:15 Intake & Output 08/04/21 08/05/21 08/05/21 18:59 06:59 18:59 Intake Total 100 Balance 100 Weight 96.8 kg Intake: IV 100 Other: Voiding Method Toilet Toilet Toilet # Voids 2 1 - Labs CBC & Chem 7: 08/03/21 03:33 08/05/21 10:25 Labs: Abnormal Lab Results - Last 24 Hours (Table) 08/05/21 Range/Units 10:25 Chloride 111 H (98-107) mmol/L Carbon Dioxide 20 L (22-30) mmol/L Glucose 108 H (74-99) mg/dL
[2021-08-05 13:23] VITALS: BP 138/88; PULSE 84; RESP 16
== END 2021-08-05 16:38 | disposition home or self-care (01) | DRG 282 ==
LOC: EC 04:04 → 3SCARD 06:51 → OBSVTOIN 08-05 07:25
PROVIDERS: ADMIT Internal Medicine; ATTEND Internal Medicine
PROC: B2111ZZ Fluoroscopy of Multiple Coronary Arteries using Low Osmolar Contrast (ICD-10-PCS; 2021-08-05)
PROC: 4A023N7 Measurement of Cardiac Sampling and Pressure, Left Heart, Percutaneous Approach (ICD-10-PCS; principal; 2021-08-05 12:10)
DX: I21.4 Non-ST elevation (NSTEMI) myocardial infarction (principal); I25.110 Atherosclerotic heart disease of native coronary artery with unstable angina pectoris; E78.5 Hyperlipidemia, unspecified; F17.200 Nicotine dependence, unspecified, uncomplicated; G43.909 Migraine, unspecified, not intractable, without status migrainosus; I08.1 Rheumatic disorders of both mitral and tricuspid valves; I25.2 Old myocardial infarction; I25.5 Ischemic cardiomyopathy; I27.20 Pulmonary hypertension, unspecified; I50.9 Heart failure, unspecified; I11.0 Hypertensive heart disease with heart failure; I44.0 Atrioventricular block, first degree; I45.10 Unspecified right bundle-branch block; Z20.822 Contact with and (suspected) exposure to COVID-19; Z79.82 Long term (current) use of aspirin; Z79.899 Other long term (current) drug therapy; Z86.010 Personal history of colon polyps; Z91.14 Patient's other noncompliance with medication regimen; Z95.5 Presence of coronary angioplasty implant and graft; Z95.810 Presence of automatic (implantable) cardiac defibrillator
CPT/HCPCS: 36415; 71046; 80048; 80053; 80061; 83880; 84484; 85025; 85610; 85730; 87635; 93005; 93306; 93458; 94640; 94760; 96374; 96375; 99285

== ENCOUNTER → 2021-08-26 | Outpatient (CLI) | payer MEDICARE, OTHER ==
[2021-08-26 22:44] LABS: African American GFR (CKD) 72.7 (60.0-200.0); Anion Gap 11.6 mmol/L (4.00-12.00); BUN/Creat Ratio 10.23 Ratio (12.00-20.00); Blood Urea Nitrogen 13.3 mg/dL (9.0-27.0); Carbon Dioxide 25.4 mmol/L (21.6-31.8); Non-African American GFR(CKD) 62.7 (60.0-200.0)
== END | disposition home or self-care (01) ==
LOC: LABWHC1 09:42
PROVIDERS: ATTEND Internal Medicine Cardiovascular Disease
DX: I50.9 Heart failure, unspecified (principal); I51.7 Cardiomegaly
CPT/HCPCS: 36415; 80048; 83880

== ENCOUNTER → 2023-01-22 | Outpatient (CLI) | payer MEDICARE, OTHER ==
[2023-01-22 15:59] LABS: HCT 46.3 % (39.6-50.0); HGB 15.7 g/dL (13.0-17.0); MCH 30.7 pg (27.0-32.0); MCHC 33.9 g/dL (32.0-37.0); MCV 90.6 fL (80.0-97.0); Mean Platelet Volume 12.1 fL (9.5-12.2); NRBC Per 100 WBC 0 /100 WBCS (0.0-0.0); Platelet Count 213 X 10*3/uL (140-440); RBC 5.11 X 10*6/uL (4.40-5.60); RDW 13.4 % (11.5-14.5); WBC 5.98 X 10*3/uL (4.50-10.00)
[2023-01-22 16:23] LABS: African American GFR (CKD) 67.8 (60.0-200.0); Anion Gap 13.2 mmol/L (10.00-18.00); Blood Urea Nitrogen 13.7 mg/dL (9.0-27.0); Carbon Dioxide 23.1 mmol/L (20.0-27.5); Non-African American GFR(CKD) 58.5 (60.0-200.0); Potassium 3.9 mmol/L (3.5-5.5)
== END | disposition home or self-care (01) ==
LOC: LABPAT 09:19
PROVIDERS: ATTEND Internal Medicine Clinical Cardiac Electrophysiology
DX: Z01.812 Encounter for preprocedural laboratory examination (principal); I44.2 Atrioventricular block, complete; I42.8 Other cardiomyopathies
CPT/HCPCS: 36415; 80051; 82565; 84520; 85027

== ENCOUNTER 2023-01-26 07:33 | Day surgery (SDC) | payer MEDICARE, OTHER ==
[2023-01-22 11:00] VITALS: BMI 29.1
[~2023-01-26 07:33] MED LIST changes: +LIDOCAINE 1% (10MG/ML) FOR IV START INTRADERMA PRN; +SODIUM CHLORIDE 0.9% 1,000 ML IV SCH
[2023-01-26] MEDS ORDERED: SODIUM CHLORIDE 0.9% 500 ML 500 ML IV ONE (08:15)
[2023-01-26 08:24] VITALS: TEMP 98.2
[2023-01-26 08:33] LABS: ALT 27 U/L (4-49); AST 27 U/L (17-59); African American GFR (CKD) 74 (>60 ml/min/1.73 sqM); Albumin 4.4 g/dL (3.5-5.0); Alkaline Phosphatase 97 U/L (38-126); Anion Gap 6 mmol/L; Blood Urea Nitrogen 15 mg/dL (9-20); Calcium 9.6 mg/dL (8.4-10.2); Carbon Dioxide 27 mmol/L (22-30); Chloride 109 mmol/L (98-107); Glucose 108 mg/dL (74-99); Magnesium 2.1 mg/dL (1.6-2.3); Non-African American GFR(CKD) 64 (>60 ml/min/1.73 sqM); Potassium 4.2 mmol/L (3.5-5.1); Sodium 142 mmol/L (137-145); Total Bilirubin 0.6 mg/dL (0.2-1.3); Total Protein 8.3 g/dL (6.3-8.2)
[2023-01-26] MEDS ORDERED: MIDAZOLAM 2 MG/2 ML VIAL ONE (09:11)
[2023-01-26] MEDS ORDERED: IOPAMIDOL-370 100ML BTL INJ ONE (09:32)
--- NOTE | 2023-01-26 09:55 | P.EPPROC ---
- EP Procedure Note Electrophysiology Procedure Note: Diagnosis Severe cardio myopathy, nonischemic 3+ mitral regurgitation with a dilated LV Coronary artery disease status post stenting to the LAD in the past Complete heart block Initially a dual-chamber device was implanted and then subsequently upgraded to a biventricular ICD Significant stenosis in the left subclavian. 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 No fractures or breaks No fractures or breaks in the LV lead. LV lead has settled into a more proximal position Bi V ICD interrogation with reprogramming The LV lead thresholds were high The best threshold is for M2-P4 = 2.9 V at 1.0 ms M3-P4 thresholds were higher at 3.5 V at 1 ms Atrial pacing percentage of 2% Complete heart block, Bi V ICD programmed to pace via M2-P4 configuration with auto capture turned ON Right upper extremity venogram 15 mL IV dye injected. Patent right subclavian and SVC. No stenosis Labs are reviewed Sodium 142, potassium 4.2 BUN 15 and creatinine 1.3 GFR 74 Magnesium 2.1 Normal liver function TSH 2.8 Plan Consider ENTRESTO in place of losartan for heart management With this new reprogramming his battery life is certainly extended upto 2 years with autocapture ON At the time of generator change consider left bundle pacing via the right subclavian vein
[2023-01-26 09:59] VITALS: RESP 16
[2023-01-26 10:46] VITALS: BP 156/98; PULSE 73
== END 2023-01-26 10:46 | disposition home or self-care (01) ==
LOC: CATHEP 07:33
PROVIDERS: ATTEND Internal Medicine Clinical Cardiac Electrophysiology
DX: T82.897A Other specified complication of cardiac prosthetic devices, implants and grafts, initial encounter (principal); Y83.1 Surgical operation with implant of artificial internal device as the cause of abnormal reaction of the patient, or of later complication, without mention of misadventure at the time of the procedure; I44.2 Atrioventricular block, complete; I42.8 Other cardiomyopathies; I25.10 Atherosclerotic heart disease of native coronary artery without angina pectoris; Z95.5 Presence of coronary angioplasty implant and graft; I34.0 Nonrheumatic mitral (valve) insufficiency; Z79.899 Other long term (current) drug therapy; I11.0 Hypertensive heart disease with heart failure; I50.22 Chronic systolic (congestive) heart failure; I50.9 Heart failure, unspecified; E78.5 Hyperlipidemia, unspecified; I48.91 Unspecified atrial fibrillation; J44.9 Chronic obstructive pulmonary disease, unspecified; F17.210 Nicotine dependence, cigarettes, uncomplicated; F12.20 Cannabis dependence, uncomplicated; Z79.82 Long term (current) use of aspirin; Z79.51 Long term (current) use of inhaled steroids; Z95.810 Presence of automatic (implantable) cardiac defibrillator
CPT/HCPCS: 93641; 75820; 36005; 80053; 84443; 83735; J2250; Q9967

== ENCOUNTER → 2023-12-18 | Outpatient (CLI) | payer MEDICARE, OTHER ==
[2023-12-18 15:49] LABS: HCT 45.5 % (39.6-50.0); HGB 15.1 g/dL (13.0-17.0); MCH 30.7 pg (27.0-32.0); MCHC 33.2 g/dL (32.0-37.0); MCV 92.5 FL (80.0-97.0); Mean Platelet Volume 12.3 FL (9.5-12.2); NRBC Per 100 WBC 0 X 10*3/uL (0.00-0.01); Platelet Count 194 X 10*3/uL (140-440); RBC 4.92 X 10*6/uL (4.40-5.60); RDW 14.1 % (11.5-14.5); WBC 3.83 X 10*3/uL (4.50-10.00)
[2023-12-18 16:06] LABS: Carbon Dioxide 26.5 mmol/L (21.6-31.8); Chloride 106 mmol/L (96-109); Potassium 3.9 mmol/L (3.5-5.5); Sodium 141 mmol/L (135-145)
== END | disposition home or self-care (01) ==
LOC: LABPAT 08:42
PROVIDERS: ATTEND Internal Medicine Clinical Cardiac Electrophysiology
DX: Z01.818 Encounter for other preprocedural examination (principal); I50.22 Chronic systolic (congestive) heart failure; I44.2 Atrioventricular block, complete
CPT/HCPCS: 36415; 80051; 82565; 84520; 85027

== ENCOUNTER 2024-01-10 02:29 | Inpatient (IN) | payer MEDICARE, OTHER ==
[2024-01-10] MEDS ORDERED: HEPARIN SODIUM 1,000 UN/ML (10ML VL) ONE (02:30)
[2024-01-10] MEDS ORDERED: fentaNYL (PF) 50 MCG/ML 2 ML AMP ONE (02:30)
[2024-01-10] MEDS: IV FLUID CONTINUATION 800 ML IV ONE (02:33)
--- NOTE | 2024-01-10 02:46 | P.CRDCN ---
History of Present Illness History of present illness: HISTORY OF PRESENTING ILLNESS Patient is a pleasant 53-year-old male with history he is status post PCI of LAD in 2018, cardiomyopathy, prior complete heart block status post initially permanent pacemaker placement and eventual upgrade to biventricular AICD left subclavian vein occlusion, hypertension. Patient states he had been feeling fairly well however did have some fevers and chills over the last few days. At approximately 11 PM last night patient started having chest pain, 2 hours prior to arrival. Chest pain feels like crashing stabbing sensation with associated nausea and shortness breath. EKG showing paced rhythm with increase in ST elevations in the inferior leads consistent with scar Oriana criteria. Patient was initially seen at [facility] and then transferred to [facility] for STEMI activation. REVIEW OF SYSTEMS At the time of my exam: CONSTITUTIONAL: Denies fever or chills. CARDIOVASCULAR: +chest pain, +shortness of breath, +orthopnea, no PND or palpitations. RESPIRATORY: Denies cough. GASTROINTESTINAL: Denies abdominal pain, diarrhea, constipation, nausea or vomiting. MUSCULOSKELETAL: Denies myalgias. NEUROLOGIC: Denies numbness, tingling or weakness. ENDOCRINE: Denies fatigue, weight change, polydipsia or polyurina. GENITOURINARY: Denies burning, hematuria or urgency with micturation. HEMATOLOGIC: Denies history of anemia or bleeding. PHYSICAL EXAMINATION Vital signs reviewed. CONSTITUTIONAL: +distress, + orthopnea. HEENT: Head is normocephalic. Pupils are equal, round. Sclerae anicteric. Mucous membranes of the mouth are moist. No JVD. No carotid bruit. CHEST EXAMINATION: +crackles HEART EXAMINATION: Regular rate and rhythm. S1, S2 heard. No murmurs, gallops or rub. ABDOMEN: Soft, nontender. Positive bowel sounds. EXTREMITIES: 2+ peripheral pulses, no lower extremity edema and no calf tenderness. NEUROLOGIC EXAMINATION: Patient is awake, alert and oriented x3. ASSESSMENT 1. Inferior STEMI 2. CAD with prior history of PCI of LAD 3. History of prior cardiomyopathy status post biventricular AICD 4. History of prior complete heart block status post initial permanent pacemaker and then upgrade 5. Hypertension 6. Acute on chronic systolic heart failure PLAN Patient in respiratory distress we will attempt BiPAP. If not patient may need to be intubated. Give IV Lasix. Emergency left heart catheterization. Check 2-D echo. Further recommendations to follow. Past Medical History Past Medical History: Coronary Artery Disease (CAD), Heart Failure, Hyperlipidemia, Hypertension, Myocardial Infarction (MA) Additional Past Medical History / Comment(s): See Jerman's H&P,3rd degree heart block, ischemic cardiomyopathy, nonsustained Vtach, pt has AICD/pacer, hemorrhoids, lower GI bleed, benign colon polyp. Last Myocardial Infarction Date:: 01/07/18 History of Any Multi-Drug Resistant Organisms: None Reported Past Surgical History: AICD, Heart Catheterization With Stent, Pacemaker Additional Past Surgical History / Comment(s): 2018 Pacer then AICD/ PCI with stent, colonoscopy/benign polypectomy, oral surgery for teeth Past Anesthesia/Blood Transfusion Reactions: No Reported Reaction Date of Last Stent Placement:: 01/07/2018 Type of Cardiac Device: Permanent Pacemaker, AICD Device Placement Date:: 01/07/18 Past Drug Use History: None Reported Additional Drug Use History / Comment(s): uses marijuana every other day - Past Family History Mother History Unknown: Yes Family Medical History: No Reported History Additional Family Medical History / Comment(s): Back problems. Father History Unknown: Yes Family Medical History: No Reported History Medications and Allergies Home Medications Medication Instructions Recorded Confirmed Type Albuterol Sulfate [Proair Hfa] 2 puff INHALATION RT-BID 08/02/21 01/22/23 History Docusate [Colace] 100 mg PO BID PRN 08/02/21 01/22/23 History Aspirin 81 mg PO DAILY 30 Days #30 tab 08/05/21 01/22/23 Rx Atorvastatin [Lipitor] 80 mg PO HS 30 Days #30 tab 08/05/21 01/22/23 Rx Losartan [Cozaar] 150 mg PO DAILY 30 Days #90 tab 08/05/21 01/22/23 Rx carvediloL 25 mg PO AC-BID 30 Days #60 tab 08/05/21 01/22/23 Rx Tiotropium 18 Mcg/Puff [Spiriva] 1 puff INHALATION DAILY 01/22/23 01/22/23 History Allergies Allergy/AdvReac Type Severity Reaction Status Date / Time Milk Containing Products AdvReac Nausea & Verified 01/22/23 10:47 (Dairy) Vomiting & [Dairy] Diarrhea
[2024-01-10] MEDS: LIDOCAINE 1% INJ 10MG/ML (20 ML MDV) SQ ONE (02:48)
[2024-01-10] MEDS: MIDAZOLAM 2 MG/2 ML VIAL IVP ONE (02:48)
[2024-01-10] MEDS: fentaNYL (PF) 50 MCG/ML 2 ML AMP IVP ONE (02:50)
[2024-01-10] MEDS: VERAPAMIL SYRINGE (5 MG/10 ML) INTRAARTER ONE (02:51)
[2024-01-10] MEDS: HEPARIN SODIUM 1,000 UN/ML (10ML VL) IV ONE (02:55)
[2024-01-10] MEDS: NITROGLYCERIN-D5W PMX 50 MG in DEXTROSE/WATER 1 250ML.BAG IV ONE (03:01)
[2024-01-10] MEDS ORDERED: FUROSEMIDE 10 MG/ML 4 ML VIAL ONE (03:04)
[2024-01-10] MEDS: FUROSEMIDE 10 MG/ML 4 ML VIAL IV ONE (03:09)
[2024-01-10] MEDS ORDERED: hydrALAZINE HCL 20 MG/ML 1 ML VIAL ONE (03:09)
[2024-01-10] MEDS: hydrALAZINE HCL 20 MG/ML 1 ML VIAL IV ONE (03:12)
[2024-01-10] MEDS: IOPAMIDOL-370 125ML BTL INJ ONE (03:15)
--- NOTE | 2024-01-10 03:22 | P.CARDCATH ---
Description of Procedure: PROCEDURES PERFORMED: Left heart catheterization, bilateral coronary angiography, ultrasound guided arterial access, left ventricular gram INDICATION: Abnormal EKG with paced rhythm and Scarbossa criteria concerning for STEMI CONSENT:I have discussed the risks, benefits and alternative therapies for the above-mentioned procedure and for both sedation/analgesia as well as necessary blood product administration, if indicated, as they pertain to this patient. The patient has indicated understanding and acceptance of the risks and procedures discussed. PROCEDURE: After the risks, benefits and alternatives of the above mentioned procedure explained in detail with the patient, informed consent was obtained. Patient was taken to the catheterization lab and prepped and draped in usual fashion. Ultrasound guidance was used to assess for arterial access. 1% lidocaine was used to anesthetize the right radial artery. A 6-Congolese sheath was placed in the right radial artery using modified Seldinger technique and ultrasound guidance. Left coronary angiography was performed with a 6-Congolese CLS 4.0 catheter and right coronary angiography was performed with a 6-Congolese AL 1.0 catheter in various views. A 6-Congolese pigtail catheter was inserted into the left ventricle and pressure measurements were obtained. A left ventricul ogram was performed in the ALAS projection with power injection with a 6-Congolese pigtail catheter. The right radial sheath was removed and a TR band was placed with hemostasis achieved. The patient tolerated the procedure well. Patient was transported back to the post catheterization holding area in stable condition. Conscious Sedation: Patient was monitored under the direct supervision of myself for conscious sedation using Versed and fentanyl for a total duration of 21 minutes HEMODYNAMICS: Aorta: 131/101 LV: 134/15, LVEDP 39 Left ventriculogram: Left ventricular ejection fraction 10-20% with severe left ventricular dilation and global hypokinesis. SELECTIVE CORONARY ARTERIOGRAPHY: LEFT MAIN: The left main is a large caliber vessel which bifurcates into the LAD and circumflex. There is no significant stenosis. LEFT ANTERIOR DESCENDING CORONARY ARTERY: LAD is a large caliber vessel which wraps around to the apex. There is a patent mid LAD stents just after the diagonal branch with otherwise mild luminal irregularities LEFT CIRCUMFLEX CORONARY ARTERY: Left circumflex is a moderate caliber vessel without significant stenosis. RIGHT CORONARY ARTERY: The right coronary artery is a large caliber vessel which gives off a PDA and PLV branch and is the dominant vessel. There is a mid RCA 40-50% stenosis which appears similar to prior images. FINAL IMPRESSION: 1. CAD as described above including 40-50% mid RCA stenosis, patent LAD stents with mild luminal irregularities of the LAD 2. Left ventricular ejection fraction 10-20% with severe left ventricular dilation and global hypokinesis 3. Severely elevated left sided filling pressures PLAN: 1. Aggressive risk factor modification per most recent ACC/AHA guidelines. 2. Coronary arteries appears similar to prior images and symptoms may be related to myocarditis, Takotsubo's cardiomyopathy or microvascular dysfunction from severe elevated left ventricular pressures. Treat underlying heart failure. Trend troponins. Check 2-D echo.
[2024-01-10 03:43] LABS: Glucose,Whole Blood 110 mg/dL (70-110)
[2024-01-10] MEDS: NITROGLYCERIN-D5W PMX 50 MG in DEXTROSE/WATER 1 250ML.BAG IV SCH (03:45)
[2024-01-10] MEDS: hydrALAZINE HCL 20 MG/ML 1 ML VIAL IVP STA (05:03)
--- NOTE | 2024-01-10 07:59 | XR ---
EXAMINATION TYPE: XR chest 1V portable DATE OF EXAM: 01/10/2024 COMPARISON: 08/02/2021 HISTORY: Shortness of breath TECHNIQUE: Single frontal view of the chest is obtained. FINDINGS: There is a 2-lead cardiac pacemaker. The heart size is normal. There is mild pulmonary vascular congestion. There is a tiny left pleural e ffusion. There is no airspace consolidation. There is no pneumothorax. The osseous structures are intact. IMPRESSION: Mild acute chart upon disease most consistent with mild CHF as described above.
[2024-01-10] MEDS: carvediloL 12.5 MG TAB PO SCH (08:10)
[2024-01-10 08:49] LABS: Basophils % (A) 1 %; Eosinophils # (A) 0.1 k/uL (0-0.7); Eosinophils % (A) 2 %; HCT 46.7 % (39.0-53.0); HGB 15.5 gm/dL (13.0-17.5); Lymphocytes # (A) 1.7 k/uL (1.0-4.8); Lymphocytes % (A) 25 %; MCH 30.6 pg (25.0-35.0); MCHC 33.2 g/dL (31.0-37.0); MCV 92.1 fL (80.0-100.0); Mean Platelet Volume 9.4; Monocytes # (A) 0.5 k/uL (0-1.0); Monocytes % (A) 8 %; Neutrophils # (A) 4.2 k/uL (1.3-7.7); Neutrophils % (A) 62 %; Platelet Count 194 k/uL (150-450); RBC 5.07 m/uL (4.30-5.90); RDW 14.2 % (11.5-15.5); WBC 6.7 k/uL (3.8-10.6)
[2024-01-10] MEDS ORDERED: LOSARTAN 50 MG TAB PO SCH (09:00)
[2024-01-10] MEDS: FUROSEMIDE 10 MG/ML 10 ML VIAL IV SCH (09:03)
[2024-01-10] MEDS: ATORVASTATIN 80 MG TAB PO SCH (09:06)
[2024-01-10 09:12] LABS: ALT 62 U/L (4-49); AST 55 U/L (17-59); African American GFR (CKD) 71 (>60 ml/min/1.73 sqM); Albumin 3.9 g/dL (3.5-5.0); Alkaline Phosphatase 121 U/L (38-126); Anion Gap 9 mmol/L; Blood Urea Nitrogen 20 mg/dL (9-20); Calcium 9.4 mg/dL (8.4-10.2); Carbon Dioxide 20 mmol/L (22-30); Chloride 109 mmol/L (98-107); Glucose 120 mg/dL (74-99); Non-African American GFR(CKD) 61 (>60 ml/min/1.73 sqM); Potassium 3.9 mmol/L (3.5-5.1); Sodium 138 mmol/L (137-145); Total Bilirubin 1.1 mg/dL (0.2-1.3); Total Protein 7.1 g/dL (6.3-8.2)
[2024-01-10] MEDS: hydrALAZINE HCL 50 MG TAB PO SCH (09:24)
[2024-01-10] MEDS ORDERED: Potassium Replacement Protocol 1 EACH MISC MISCELLANE PRN (09:29)
[2024-01-10] MEDS: POTASSIUM CHLORIDE ER 20 MEQ TAB.ER PO SCH (09:38)
[2024-01-10] MEDS: SACUBITRIL/VALSARTAN 97 MG-103 MG TABLET PO SCH (09:51)
[2024-01-10] MEDS ORDERED: ALPRAZolam 0.25 MG TAB PO PRN (10:00)
[2024-01-10] MEDS ORDERED: MORPHINE SULFATE 2 MG/ML SYRINGE IVP PRN (13:06)
--- NOTE | 2024-01-10 13:22 | P.HPIM ---
History of Present Illness H&P Date: 01/10/24 History of present illness; patient 53-year-old gentleman past medical history significant for coronary artery disease status post PCI of LAD in 2018, cardiomyopathy, prior complete heart block status post permanent pacemaker placement, COPD who initially presented to the [facility] for chest pain and shortness of breath. Patient states that he was all right last night when he started having chest pressure central location, stabbing in nature, associated with shortness of breath. There was no complaint of palpitation. There was no complaint of orthopnea or PND. Patient did state that he was having fever and chills a few days prior. Because of chest pain, patient workup in the [facility], initial EKG showed paced rhythm increased ST elevation in the inferior leads, patient was transferred to [facility] for cardiac cath. Cardiac cath done showed 40-50% mid RCA stenosis, patent LAD stents with mild luminal irregularities of the LAD, Left ventricular ejection fraction 10-20% with severe left ventricular dilation and global hypokinesis, Severely elevated left sided filling pressures. Postcardiac cath, patient was admitted to internal medicine service REVIEW OF SYSTEMS: CONSTITUTIONAL: No fever, no malaise, no fatigue. HEENT: No recent visual problems or hearing problems. Denied any sore throat. CARDIOVASCULAR: As mentioned above PULMONARY: N as mentioned above GASTROINTESTINAL: No diarrhea, no nausea, no vomiting,. Complaining of abdominal pain NEUROLOGICAL: No headaches, no weakness, no numbness. HEMATOLOGICAL: Denies any bleeding or petechiae. GENITOURINARY: Denies any burning micturition, frequency, or urgency. MUSCULOSKELETAL/RHEUMATOLOGICAL: Denies any joint pain, swelling, or any muscle pain. ENDOCRINE: Denies any polyuria or polydipsia. The rest of the 14-point review of systems is negative. PHYSICAL EXAMINATION: GENERAL: The patient is alert and oriented x3, not in any acute distress. Well d eveloped, well nourished. HEENT: Pupils are round and equally reacting to light. EOMI. No scleral icterus. No conjunctival pallor. Normocephalic, atraumatic. No pharyngeal erythema. No thyromegaly. CARDIOVASCULAR: S1 and S2 present. No murmurs, rubs, or gallops. PULMONARY: Chest is clear to auscultation, no wheezing or crackles. ABDOMEN: Soft, nontender, nondistended, normoactive bowel sounds. No palpable organomegaly. MUSCULOSKELETAL: No joint swelling or deformity. EXTREMITIES: No cyanosis, clubbing, or pedal edema. NEUROLOGICAL: Gross neurological examination did not reveal any focal deficits. SKIN: No rashes. Assessment and plan Acute coronary syndrome Acute hypoxemic respiratory failure CAD with prior history of PCI of LAD Abdominal pain History of prior cardiomyopathy status post biventricular AICD History of prior complete heart block status post initial permanent pacemaker and then upgrade Hypertension Acute on chronic systolic heart failure Monitor vital signs Monitor CBC Monitor CMP Continue telemetry monitoring S/p cardiac cath showing 40-50% mid RCA stenosis, patent LAD stents with mild luminal irregularities of the LAD, Left ventricular ejection fraction 10-20% with severe left ventricular dilation and global hypokinesis, Severely elevated left sided filling pressures. Continue aspirin, Lipitor, Coreg Continue nitro drip Strict I's and O's, daily weights, continue IV Lasix 80 mg every 8 hourly Continue Entresto Ordered CT abdominal and pelvis without contrast Ordered IV Protonix Cardiology following Labs and medication were reviewed.. Continue same treatment. Continue with symptomatic treatment. Resume home medication. Monitor labs and vitals. DVT and GI prophylaxis. Further recommendations as per clinical course of the patient Dictation was produced using [employer] dictation software. please excuse any grammatical, word or spelling errors. Past Medical History Past Medical History: Coronary Artery Disease (CAD), Heart Failure, Hyperlipidemia, Hypertension, Myocardial Infarction (DE) Additional Past Medical History / Comment(s): See Jerman's H&P,3rd degree heart block, ischemic cardiomyopathy, nonsustained Vtach, pt has AICD/pacer, hemorrhoids, lower GI bleed, benign colon polyp. Last Myocardial Infarction Date:: 01/07/18 History of Any Multi-Drug Resistant Organisms: None Reported Past Surgical History: AICD, Heart Catheterization With Stent, Pacemaker Additional Past Surgical History / Comment(s): 2018 Pacer then AICD/ PCI with stent, colonoscopy/benign polypectomy, oral surgery for teeth Past Anesthesia/Blood Transfusion Reactions: No Reported Reaction Date of Last Stent Placement:: 01/07/2018 Type of Cardiac Device: Permanent Pacemaker, AICD Device Placement Date:: 01/07/18 Past Psychological History: Depression Additional Psychological History / Comment(s): He is disabled. Smoking Status: Current some day smoker Past Alcohol Use History: None Reported Past Drug Use History: None Reported Additional Drug Use History / Comment(s): marijuana gummies - Past Family History Mother History Unknown: Yes Family Medical History: No Reported History Additional Family Medical History / Comment(s): Back problems. Father History Unknown: Yes Family Medical History: No Reported History Medications and Allergies Home Medications Medication Instructions Recorded Confirmed Type Albuterol Sulfate [Proair Hfa] 2 puff INHALATION RT-BID 08/02/21 01/22/23 History Docusate [Colace] 100 mg PO BID PRN 08/02/21 01/22/23 History Aspirin 81 mg PO DAILY 30 Days #30 tab 08/05/21 01/22/23 Rx Atorvastatin [Lipitor] 80 mg PO HS 30 Days #30 tab 08/05/21 01/22/23 Rx Losartan [Cozaar] 150 mg PO DAILY 30 Days #90 tab 08/05/21 01/22/23 Rx carvediloL 25 mg PO AC-BID 30 Days #60 tab 08/05/21 01/22/23 Rx Tiotropium 18 Mcg/Puff [Spiriva] 1 puff INHALATION DAILY 01/22/23 01/22/23 History Allergies Allergy/AdvReac Type Severity Reaction Status Date / Time Milk Containing Products AdvReac Nausea & Verified 01/22/23 10:47 (Dairy) Vomiting & [Dairy] Diarrhea Physical Exam Vitals: Vital Signs Temp Pulse Resp BP Pulse Ox FiO2 01/10/24 13:00 84 24 114/87 95 01/10/24 12:30 73 21 126/93 93 L 01/10/24 12:00 98 F 76 20 116/83 93 L 01/10/24 11:45 70 26 H 96/74 96 01/10/24 11:30 67 24 107/70 88 L 01/10/24 11:15 70 16 114/77 94 L 01/10/24 11:00 76 13 131/90 95 01/10/24 10:45 69 21 92/70 98 01/10/24 10:30 74 11 L 117/104 95 01/10/24 10:15 69 110/82 95 01/10/24 10:00 68 18 128/96 93 L 01/10/24 09:45 71 119/85 96 01/10/24 09:30 71 14 128/90 95 01/10/24 09:15 75 26 H 116/71 93 L 01/10/24 09:00 73 16 128/93 94 L 01/10/24 08:45 67 120/90 95 01/10/24 08:30 74 118/74 96 01/10/24 08:15 81 133/97 94 L 01/10/24 08:00 73 18 101/86 94 L 01/10/24 07:45 76 104/70 98 01/10/24 07:30 66 115/90 99 50 01/10/24 07:15 72 11 L 117/106 99 01/10/24 07:00 73 16 127/94 98 01/10/24 06:45 76 12 142/102 98 01/10/24 06:30 78 11 L 152/125 98 01/10/24 06:15 82 9 L 115/92 100 50 01/10/24 06:00 70 21 128/89 100 70 01/10/24 05:59 50 01/10/24 05:45 76 17 140/101 100 01/10/24 05:30 80 19 149/109 99 01/10/24 05:15 82 16 137/102 99 01/10/24 05:00 76 16 136/79 99 01/10/24 04:50 72 16 136/79 99 01/10/24 04:40 72 16 123/104 100 01/10/24 04:30 73 15 149/83 99 01/10/24 04:20 79 16 149/83 100 01/10/24 04:10 73 16 134/100 99 01/10/24 04:00 97.4 F L 76 17 134/107 100 100 01/10/24 03:50 79 23 134/107 100 01/10/24 03:42 100 Intake and Output 01/09/24 01/10/24 01/10/24 22:59 06:59 14:59 Intake Total 121.25 677.625 Output Total 2100 2940 Balance -75 -2261.375 Intake: IV 110 Intake, IV Titration 11.25 57.625 Amount Nitroglycerin-D5w Pmx 50 11.25 57.625 mg In Dextrose/Water 1 250ml.bag @ 50 MCG/MIN 15 mls/hr IV .[id number] [facility] Rx#:[id number] Oral 620 Output: Urine 2100 2940 Other: Voiding Method Urinal Urinal Weight 93.894 kg Results CBC & Chem 7: 01/10/24 08:40 01/10/24 08:40 Labs: Abnormal Lab Results - Last 24 Hours (Table) 01/10/24 01/10/24 Range/Units 08:40 08:40 Chloride 109 H (98-107) mmol/L Carbon Dioxide 20 L (22-30) mmol/L Creatinine 1.32 H (0.66-1.25) mg/dL Glucose 120 H (74-99) mg/dL ALT 62 H (4-49) U/L Troponin I 0.097 H* (0.000-0.034) ng/mL Thrombosis Risk Factor Assmnt - Choose All That Apply Any of the Below Risk Factors Present?: No Other Risk Factors: No Other congenital or acquired thrombophilia - If yes, enter type in comment: No Thrombosis Risk Factor Assessment Level: Very Low Risk
--- NOTE | 2024-01-10 13:55 | CT ---
EXAMINATION TYPE: CT abdomen pelvis wo con DATE OF EXAM: 01/10/2024 COMPARISON: None HISTORY: ABDOMINAL PAIN CT DLP: 618.6 mGycm Automated exposure control for dose reduction was used. TECHNIQUE: Helical acquisition of images was performed from the lung bases through the pelvis. FINDINGS: The lung bases are clear. There is no gallstone, gallbladder distention, pericholecystic fluid or wall thickening. There is no biliary ductal dilatation. There is no organomegaly involving the liver, pancreas, spleen or adrenal glands. There are no renal calcifications or hydronephrosis. There is mild contrast in the pelvic calyceal sy stems and urinary bladder presumably from prior heart catheterization performed on the same date at a n earlier time.. The bowel loops are normal in caliber and there is no dilatation or obstruction. No inflammatory gan ges identified within the mesentery. There is no free intraperitoneal air or fluid. There is no pelvic mass, free fluid, abscess or adenopathy. There is moderate prostatic hypertrophy The osseous structures are intact. IMPRESSION: Moderate prostatic hypertrophy with no other significant abnormality. No significant abnormality seen.
[2024-01-10] MEDS: PANTOPRAZOLE 40 MG/10 ML VIAL IVP SCH (14:13)
[2024-01-10] MEDS ORDERED: MAGNESIUM HYDROXIDE 2,400 MG/30 ML CUP PO PRN (14:16)
[2024-01-10] MEDS: IPRATROPIUM 0.5 MG/2.5 ML NEBU INHALATION SCH (15:47)
[2024-01-10] MEDS ORDERED: SIMETHICONE 80 MG CHEWABLE PO PRN (17:42)
[2024-01-10] MEDS: ALBUTEROL NEBULIZED 2.5 MG/3 ML INHALATION SCH (20:10)
[2024-01-10] MEDS: SIMETHICONE 80 MG CHEWABLE PO ONE (20:17)
[2024-01-11] MEDS: ASPIRIN 81 MG PO SCH (09:21)
[2024-01-11 10:19] LABS: African American GFR (CKD) 57 (>60 ml/min/1.73 sqM); Anion Gap 7 mmol/L; Blood Urea Nitrogen 28 mg/dL (9-20); Calcium 9.7 mg/dL (8.4-10.2); Carbon Dioxide 26 mmol/L (22-30); Chloride 104 mmol/L (98-107); Glucose 92 mg/dL (74-99); Non-African American GFR(CKD) 49 (>60 ml/min/1.73 sqM); Sodium 137 mmol/L (137-145)
[2024-01-11 10:27] LABS: Basophils # (A) 0.1 k/uL (0-0.2); Basophils % (A) 1 %; Eosinophils # (A) 0.1 k/uL (0-0.7); Eosinophils % (A) 2 %; HCT 51.6 % (39.0-53.0); HGB 17.1 gm/dL (13.0-17.5); Lymphocytes % (A) 38 %; MCH 30.8 pg (25.0-35.0); MCHC 33.2 g/dL (31.0-37.0); MCV 92.9 fL (80.0-100.0); Mean Platelet Volume 9.4; Monocytes # (A) 0.6 k/uL (0-1.0); Monocytes % (A) 11 %; Neutrophils # (A) 2.4 k/uL (1.3-7.7); Neutrophils % (A) 46 %; Platelet Count 197 k/uL (150-450); RBC 5.56 m/uL (4.30-5.90); RDW 13.7 % (11.5-15.5); WBC 5.3 k/uL (3.8-10.6)
--- NOTE | 2024-01-11 12:27 | CA ---
Transthoracic Echo Report Name: Tony Leyva Age: 53 Gender: M : 1970 Exam Date: 01/10/2024 14:01 Exam Location: [facility] Ht (in): 72 Wt (lb): 207 Ordering Physician: Jonathan Romano DO ([email or web address]) Attending/Referring Phys: Interactive Producer Mary Concepcion RDCS Procedure CPT: Indications: evaluate left ventricular function Cardiac Hx: Technical Quality: Contrast 1: Definity Total Dose (mL): 2 Contrast 2: Total Dose (mL): MEASUREMENTS (Male / Female) Normal Values 2D ECHO LV Diastolic Diameter PLAX 8.8 cm 4.2 - 5.9 / 3.9 - 5.3 cm LV Systolic Diameter PLAX 8.0 cm IVS Diastolic Thickness 1.7 cm 0.6 - 1.0 / 0.6 - 0.9 cm LVPW Diastolic Thickness 0.9 cm 0.6 - 1.0 / 0.6 - 0.9 cm LV Relative Wall Thickness 0.3 LVOT Diameter 2.4 cm Aortic Root Diameter 4.0 cm LA Systolic Diameter LX 4.7 cm 3.0 - 4.0 / 2.7 - 3.8 cm LA Volume 117.0 cm??? 18 - 58 / 22 - 52 cm??? LA Volume Index 53.2 cm???/m??? 16 - 28 cm???/m??? DOPPLER AV Peak Velocity 206.8 cm/s AV Peak Gradient 17.1 mmHg AV Mean Velocity 136.5 cm/s AV Mean Gradient 8.9 mmHg AV Velocity Time Integral 33.7 cm LVOT Peak Velocity 105.4 cm/s LVOT Peak Gradient 4.4 mmHg LVOT Velocity Time Integral 17.8 cm LVOT Stroke Volume 81.8 cm??? LVOT Stroke Volume Index 37.8 ml/m??? AV Area Cont Eq vti 2.4 cm??? AV Area Cont Eq pk 2.3 cm??? MR Peak Velocity 481.1 cm/s MR Peak Gradient 92.6 mmHg Mitral E Point Velocity 70.6 cm/s Mitral A Point Velocity 42.2 cm/s Mitral E to A Ratio 1.7 MV Deceleration Time 204.6 ms MV E' Velocity 5.1 cm/s Mitral E to MV E' Ratio 13.8 TR Peak Velocity 249.3 cm/s TR Peak Gradient 24.9 mmHg PV Peak Velocity 79.2 cm/s PV Peak Gradient 2.5 mmHg FINDINGS Left Ventricle Left ventricular ejection fraction is estimated at 10-15 %. Severely reduced global left ventricular systolic function . Dilated left ventricle Right Ventricle Right ventricular systolic pressure estimated at 29.8mmhg. Right Atrium Catheter/pacemaker wire in the right atrial cavity. Left Atrium Moderately increased left atrial diameter. Severely increased left atrial volume. Moderately increased left atrial area. Mitral Valve Moderate to Severe eccentric mitral regurgitation.structurally normal mitral valve. Aortic Valve Trileaflet aortic valve. Mild aortic regurgitation Tricuspid Valve Mild tricuspid regurgitation.structurally normal tricuspid valve. Pulmonic Valve Pulmonic valve not well visualized. Pericardium No pericardial effusion. Aorta Mild Aortic dilatation. CONCLUSIONS 1. Severely impaired left ventricle systolic function with global hypokinesis 2. Moderate severe eccentric mitral regurgitation 3. Mild aortic and tricuspid regurgitation 4. A wire was noted in the right ventricle Previewed by: Dr. Edie Jacobson MD (Electronically Signed) Final Date: 11 January 2024 12:26
--- NOTE | 2024-01-11 12:53 | P.PN ---
Subjective Progress Note Date: 01/11/24 patient 53-year-old gentleman past medical history significant for coronary artery disease status post PCI of LAD in 2018, cardiomyopathy, prior complete heart block status post permanent pacemaker placement, COPD who initially presented to the [facility] for chest pain and shortness of jori ath. Patient states that he was all right last night when he started having chest pressure central location, stabbing in nature, associated with shortness of breath. There was no complaint of palpitation. There was no complaint of orthopnea or PND. Patient did state that he was having fever and chills a few days prior. Because of chest pain, patient workup in the [facility], initial EKG showed paced rhythm increased ST elevation in the inferior leads, patient was transferred to [facility] for cardiac cath. Cardiac cath done showed 40-50% mid RCA stenosis, patent LAD stents with mild luminal irregularities of the LAD, Left ventricular ejection fraction 10-20% with severe left ventricular dilation and global hypokinesis, Severely elevated left sided filling pressures. Postcardiac cath, patient was admitted to internal medicine service 01/10. Patient seen and examined. Feeling much better, not requiring any oxygen. States swelling of legs has resolved REVIEW OF SYSTEMS: CONSTITUTIONAL: No fever, no malaise,. CARDIOVASCULAR: No chest pain, no palpitations, no syncope. PULMONARY: No shortness of breath, no cough, GASTROINTESTINAL: No diarrhea, no nausea, no vomiting, no abdominal pain. NEUROLOGICAL: No headaches, no weakness, PHYSICAL EXAMINATION: GENERAL: The patient is alert and oriented x3, not in any acute distress. Well d eveloped, well nourished. HEENT: Pupils are round and equally reacting to light. EOMI. No scleral icterus. No conjunctival pallor. Normocephalic, atraumatic. No pharyngeal erythema. No thyromegaly. CARDIOVASCULAR: S1 and S2 present. No murmurs, rubs, or gallops. PULMONARY: Chest is clear to auscultation, no wheezing or crackles. ABDOMEN: Soft, nontender, nondistended, normoactive bowel sounds. No palpable organomegaly. MUSCULOSKELETAL: No joint swelling or deformity. EXTREMITIES: No cyanosis, clubbing, or pedal edema. NEUROLOGICAL: Gross neurological examination did not reveal any focal deficits. SKIN: No rashes. Assessment and plan Acute coronary syndrome Acute hypoxemic respiratory failure CAD with prior history of PCI of LAD Abdominal pain History of prior cardiomyopathy status post biventricular AICD History of prior complete heart block status post initial permanent pacemaker and then upgrade Hypertension Acute on chronic systolic heart failure Monitor vital signs Monitor CBC Monitor CMP Continue telemetry monitoring S/p cardiac cath showing 40-50% mid RCA stenosis, patent LAD stents with mild luminal irregularities of the LAD, Left ventricular ejection fraction 10-20% with severe left ventricular dilation and global hypokinesis, Severely elevated left sided filling pressures. Continue aspirin, Lipitor, Coreg Strict I's and O's, daily weights, continue IV Lasix 80 mg every [address] abdominal and pelvis showed no acute intra-abdominal process Continue IV Protonix Cardiology following Labs and medication were reviewed.. Continue same treatment. Continue with symptomatic treatment. Resume home medication. Monitor labs and vitals. DVT and GI prophylaxis. Further recommendations as per clinical course of the patient Dictation was produced using [employer] dictation software. please excuse any grammatical, word or spelling errors. Objective - Vital Signs Vital signs: Vital Signs Temp 98.0 F 01/11/24 04:54 Pulse 84 01/11/24 08:31 Resp 18 01/11/24 04:54 BP 119/78 01/11/24 04:54 Pulse Ox 99 01/11/24 04:54 FiO2 50 01/10/24 07:30 Intake & Output 01/10/24 01/11/24 01/11/24 18:59 06:59 18:59 Intake Total 927.625 110 Output Total 4265 600 Balance -3337.375 -600 110 Weight 85.9 kg Intake: Intake, IV Titration 57.625 Amount Nitroglycerin-D5w Pmx 50 57.625 mg In Dextrose/Water 1 250ml.bag @ 50 MCG/MIN 15 mls/hr IV .[id number] [facility] Rx#:[id number] Oral 870 110 Output: Urine 4265 600 Other: Voiding Method Urinal Urinal - Labs CBC & Chem 7: 01/11/24 09:15 01/11/24 09:15 Labs: Abnormal Lab Results - Last 24 Hours (Table) 01/10/24 Range/Units 08:40 Troponin I 0.097 H* (0.000-0.034) ng/mL
[2024-01-11 16:19] VITALS: RESP 18
--- NOTE | 2024-01-11 23:04 | PN ---
PROGRESS NOTE SUBJECTIVE: Mr. Leyva is a gentleman with ischemic cardiomyopathy with ICD. He had a cardiac cath yesterday, which revealed that the LAD stent was patent, moderate disease in other vessels with mid RCA of 40% to 50%. We will pursue medical therapy. Continue his current medications and see how he does. I am recommending that we will increase activity and possible discharge tomorrow and follow up with Dr. Stoll in about a week or so. OBJECTIVE: VITAL SIGNS: Stable. Radial cath site is clean and dry. CARDIAC: S1, S2 heard normally. Short systolic murmur. LUNGS: Clear. ABDOMEN: Unremarkable. LOWER EXTREMITIES: Unremarkable. MMODL / IJN: [id number] /
[2024-01-12] MEDS: PANTOPRAZOLE 40 MG TABLET PO SCH (06:17)
[2024-01-12 11:14] VITALS: TEMP 98.2
[2024-01-12 12:14] LABS: ALT 47 U/L (4-49); AST 30 U/L (17-59); African American GFR (CKD) 46 (>60 ml/min/1.73 sqM); Albumin 4.6 g/dL (3.5-5.0); Alkaline Phosphatase 118 U/L (38-126); Anion Gap 10 mmol/L; Blood Urea Nitrogen 40 mg/dL (9-20); Calcium 10.4 mg/dL (8.4-10.2); Carbon Dioxide 29 mmol/L (22-30); Chloride 100 mmol/L (98-107); Glucose 85 mg/dL (74-99); Non-African American GFR(CKD) 40 (>60 ml/min/1.73 sqM); Potassium 3.9 mmol/L (3.5-5.1); Sodium 139 mmol/L (137-145); Total Bilirubin 0.7 mg/dL (0.2-1.3); Total Protein 8.4 g/dL (6.3-8.2)
--- NOTE | 2024-01-12 13:01 | P.PN ---
Subjective Progress Note Date: 01/12/24 HISTORY OF PRESENTING ILLNESS Patient is a pleasant 53-year-old male with history he is status post PCI of LAD in 2018, cardiomyopathy, prior complete heart block status post initially permanent pacemaker placement and eventual upgrade to biventricular AICD left subclavian vein occlusion, hypertension. Patient states he had been feeling fairly well however did have some fevers and chills over the last few days. At approximately 11 PM last night patient started having chest pain, 2 hours prior to arrival. Chest pain feels like crashing stabbing sensation with associated nausea and shortness breath. EKG showing paced rhythm with increase in ST elevations in the inferior leads consistent with scar Oriana criteria. Patient was initially seen at [facility] and then transferred to [facility] for STEMI activation. Patient also admits to pull in his tooth out as it was loose approximately a month ago and since that time has had some headaches as well as some fevers. He also has been having some chest tightness and mainly shortness breath worse over last week. Left heart catheterization was performed which shows similar CAD with patent LAD stent, mild disease on the left and similar 40-50% mid RCA stenosis. May be a component of myocarditis, Takotsubo's cardiomyopathy or less likely spasm. Given contrast threshold treated medically at this time. Majority of symptoms currently appear related to heart failure. He does have significantly elevated LVEDP as well as elevated pressure especially diastolic and continue with nitroglycerin drip, Lasix and optimize heart failure regimen as able. 01/11 Patient denies having any chest pain or tightness. Blood pressure has been on soft side and hydralazine dosing will be adjusted. Patient is also been on IV Lasix 80 mg every 8 hours. Echocardiogram reveals severely impaired left ventricular systolic function with global hypokinesis, moderate to severe eccentric mitral regurgitation, mild aortic and tricuspid regurgitation, wire noted in the right ventricle. Blood pressure 112/80, heart rate 68, pulse ox 100% on room air. Repeat blood work reveals electrolytes normal. BUN 40 creatinine 1.87. PHYSICAL EXAMINATION Vital signs reviewed. CONSTITUTIONAL: no distress. HEENT: Head is normocephalic. Pupils are equal, round. Sclerae anicteric. Mucous membranes of the mouth are moist. No JVD. No carotid bruit. CHEST EXAMINATION: +crackles HEART EXAMINATION: Regular rate and rhythm. S1, S2 heard. Short systolic murmur. ABDOMEN: Soft, nontender. Positive bowel sounds. EXTREMITIES: 2+ peripheral pulses, no lower extremity edema and no calf tenderness. NEUROLOGIC EXAMINATION: Patient is awake, alert and oriented x3. ASSESSMENT 1. Inferior STEMI 2. CAD with prior history of PCI of LAD 3. History of prior cardiomyopathy status post biventricular AICD 4. History of prior complete heart block status post initial permanent pacemaker and then upgrade 5. Hypertension 6. Acute on chronic systolic heart failure PLAN Transition IV Lasix to oral 40 mg twice daily Decrease hydralazine to 25 mg 3 times daily Continue patient on aspirin 81 mg daily, Lipitor 80 mg daily, Coreg 25 mg twice daily and Entresto 97-103 mg twice daily Patient is cleared for discharge from cardiology May follow-up with Dr. Stoll in 1 week. Nurse practitioner note has been reviewed, I agree with documented findings and plan of care. Patient was seen and examined. Objective - Vital Signs Vital signs: Vital Signs Temp 97.7 F 01/12/24 04:00 Pulse 68 01/12/24 08:42 Resp 18 01/12/24 04:00 BP 116/83 01/12/24 04:00 Pulse Ox 97 01/12/24 04:00 FiO2 50 01/10/24 07:30 Intake & Output 01/11/24 01/12/24 01/12/24 18:59 06:59 18:59 Intake Total 330 1080 Output Total 800 700 Balance -470 -700 1080 Weight 85.6 kg Intake: Oral 330 1080 Output: Urine 800 700 Other: Voiding Method Urinal Urinal - Labs CBC & Chem 7: 01/11/24 09:15 01/12/24 11:23 Labs: Abnormal Lab Results - Last 24 Hours (Table) 01/11/24 Range/Units 09:15 BUN 28 H (9-20) mg/dL Creatinine 1.58 H (0.66-1.25) mg/dL
--- NOTE | 2024-01-12 13:08 | P.DS ---
Providers Date of admission: 01/10/24 04:37 Expected date of discharge: 01/12/24 Attending physician: Adis Leigh Consults: 01/10/24 09:29 Consult Physician Stat Consulting Provider: Adis Leigh Consult Reason/Comments: medical management Do you want consulting provider notified?: Yes Primary care physician: Emily [facility] Hospital Course: Discharge diagnoses; Acute coronary syndrome Acute hypoxemic respiratory failure CAD with prior history of PCI of LAD Abdominal pain History of prior cardiomyopathy status post biventricular AICD History of prior complete heart block status post initial permanent pacemaker and then upgrade Hypertension Acute on chronic systolic heart failure Hospital course; patient 53-year-old gentleman past medical history significant for coronary artery disease status post PCI of LAD in 2018, cardiomyopathy, prior complete heart block status post permanent pacemaker placement, COPD who initially presented to the [facility] for chest pain and shortness of breath. Patient states that he was all right last night when he started having chest pressure central location, stabbing in nature, associated with shortness of breath. There was no complaint of palpitation. There was no complaint of orthopnea or PND. Patient did state that he was having fever and chills a few days prior. Because of chest pain, patient workup in the [facility], initial EKG showed paced rhythm increased ST elevation in the inferior leads, patient was transferred to [facility] for cardiac cath. Cardiac cath done showed 40-50% mid RCA stenosis, patent LAD stents with mild luminal irregularities of the LAD, Left ventricular ejection fraction 10-20% with severe left ventricular dilation and global hypokinesis, Severely elevated left sided filling pressures. Postcardiac cath, patient was admitted to internal medicine service 01/10. Patient seen and examined. Feeling much better, not requiring any oxygen. States swelling of legs has resolved 01/11. Patient seen and examined. Cardiology evaluated patient, recommend discharging patient on Lasix 40 mg twice a day. Outpatient follow-up with car diology. PHYSICAL EXAMINATION: GENERAL: The patient is alert and oriented x3, not in any acute distress. Well developed, well nourished. HEENT: Pupils are round and equally reacting to light. EOMI. No scleral icterus. No conjunctival pallor. Normocephalic, atraumatic. No pharyngeal erythema. No thyromegaly. CARDIOVASCULAR: S1 and S2 present. No murmurs, rubs, or gallops. PULMONARY: Chest is clear to auscultation, no wheezing or crackles. ABDOMEN: Soft, nontender, nondistended, normoactive bowel sounds. No palpable organomegaly. MUSCULOSKELETAL: No joint swelling or deformity. EXTREMITIES: No cyanosis, clubbing, or pedal edema. NEUROLOGICAL: Gross neurological examination did not reveal any focal deficits. SKIN: No rashes. Dictation was produced using [employer] dictation software. please excuse any grammatical, word or spelling errors. Patient Condition at Discharge: Good Plan - Discharge Summary Discharge Rx Participant: Yes New Discharge Prescriptions: New Furosemide [Lasix] 40 mg PO BID@0900,1600 #60 tab Potassium Chloride 10 meq PO BID #60 cap hydrALAZINE HCL [Apresoline] 25 mg PO TID #60 tab Continue Cholecalciferol [Vitamin D3 (25 Mcg = 1000 Iu)] 25 mcg PO DAILY carvediloL 25 mg PO BID Atorvastatin [Lipitor] 80 mg PO HS Aspirin 81 mg PO DAILY 30 Days #30 tab Nitroglycerin Sl Tabs [Nitrostat] 0.4 mg SUBLINGUAL Q5M PRN PRN Reason: Chest Pain Multivitamins, Thera [Multivitamin (formulary)] 1 tab PO DAILY Sacubitril/Valsartan [Entresto 97 mg-103 mg Tablet] 1 tab PO BID Cyanocobalamin (Vitamin B-12) [Vitamin B-12] 1,000 mcg PO DAILY Discontinued hydrALAZINE HCL [Apresoline] 100 mg PO DAILY Discharge Medication List Aspirin 81 mg PO DAILY 30 Days #30 tab 08/05/21 [Rx] Atorvastatin [Lipitor] 80 mg PO HS 01/10/24 [History] Cholecalciferol [Vitamin D3 (25 Mcg = 1000 Iu)] 25 mcg PO DAILY 01/10/24 [History] Cyanocobalamin (Vitamin B-12) [Vitamin B-12] 1,000 mcg PO DAILY 01/10/24 [History] Multivitamins, Thera [Multivitamin (formulary)] 1 tab PO DAILY 01/10/24 [History] Nitroglycerin Sl Tabs [Nitrostat] 0.4 mg SUBLINGUAL Q5M PRN 01/10/24 [History] Sacubitril/Valsartan [Entresto 97 mg-103 mg Tablet] 1 tab PO BID 01/10/24 [History] carvediloL 25 mg PO BID 01/10/24 [History] Furosemide [Lasix] 40 mg PO BID@0900,1600 #60 tab 01/12/24 [Rx] Potassium Chloride 10 meq PO BID #60 cap 01/12/24 [Rx] hydrALAZINE HCL [Apresoline] 25 mg PO TID #60 tab 01/12/24 [Rx] Follow up Appointment(s)/Referral(s): Koko Stoll MD [STAFF PHYSICIAN] - 1 Week Discharge Disposition: HOME SELF-CARE
[2024-01-12 13:41] VITALS: BP 103/71; PULSE 76
[2024-01-12] MEDS ORDERED: FUROSEMIDE 40 MG TAB PO SCH (16:00)
[2024-01-12] MEDS ORDERED: hydrALAZINE HCL 25 MG TAB PO SCH (16:00)
== END 2024-01-12 13:46 | disposition home or self-care (01) | DRG 280 ==
LOC: CATHCVL 02:29 → 2SICU 04:37 → 3SCARD 22:09
PROVIDERS: ADMIT Hospitalist; ATTEND Hospitalist
PROC: B2151ZZ Fluoroscopy of Left Heart using Low Osmolar Contrast (ICD-10-PCS; 2024-01-10)
PROC: 4A023N7 Measurement of Cardiac Sampling and Pressure, Left Heart, Percutaneous Approach (ICD-10-PCS; principal; 2024-01-10 02:23)
PROC: B2111ZZ Fluoroscopy of Multiple Coronary Arteries using Low Osmolar Contrast (ICD-10-PCS; 2024-01-10 02:23)
DX: I21.19 ST elevation (STEMI) myocardial infarction involving other coronary artery of inferior wall (principal); I50.21 Acute systolic (congestive) heart failure; J96.01 Acute respiratory failure with hypoxia; I50.23 Acute on chronic systolic (congestive) heart failure; I11.0 Hypertensive heart disease with heart failure; I25.10 Atherosclerotic heart disease of native coronary artery without angina pectoris; I25.2 Old myocardial infarction; I25.5 Ischemic cardiomyopathy; Z95.0 Presence of cardiac pacemaker; F32.A Depression, unspecified; J44.9 Chronic obstructive pulmonary disease, unspecified; I08.3 Combined rheumatic disorders of mitral, aortic and tricuspid valves; Z95.5 Presence of coronary angioplasty implant and graft; E78.5 Hyperlipidemia, unspecified; F17.210 Nicotine dependence, cigarettes, uncomplicated; Z87.19 Personal history of other diseases of the digestive system; Z86.010 Personal history of colon polyps; Z79.82 Long term (current) use of aspirin; Z79.899 Other long term (current) drug therapy; Z91.011 Allergy to milk products
CPT/HCPCS: 71045; 74176; 76937; 80048; 80053; 84484; 85025; 93306; 93458; 94640; 94660

== ENCOUNTER 2024-01-26 11:54 | Inpatient (IN) | payer MEDICARE, OTHER ==
[2024-01-26] MEDS: SODIUM CHLORIDE 0.9% 1,000 ML IV ONE (12:56)
[2024-01-26] MEDS ORDERED: ceFAZolin 1 GM in SODIUM CHLORIDE 0.9% IRRIG BTL 250 ML IRRIGATION PRN (13:00)
[2024-01-26] MEDS ORDERED: LIDOCAINE 1% INJ 10MG/ML (20 ML MDV) ONE ×3 (14:40→17:10)
[2024-01-26] MEDS ORDERED: MIDAZOLAM 2 MG/2 ML VIAL ONE (14:46)
[2024-01-26] MEDS ORDERED: ETOMIDATE 2 MG/ML 10 ML VIAL ONE (14:46)
[2024-01-26] MEDS ORDERED: SUCCINYLCHOLINE CHLORIDE 200 MG/10 ML VIAL IV ONE (14:46)
[2024-01-26] MEDS ORDERED: PHENYLEPHRINE 10 MG/ML VIAL ONE (14:46)
[2024-01-26] MEDS ORDERED: fentaNYL (PF) 50 MCG/ML 2 ML AMP ONE (14:46)
[2024-01-26] MEDS: VANCOMYCIN 1,250 MG in SODIUM CHLORIDE 0.9% 250 ML IVPB ONE (15:35)
[2024-01-26] MEDS: IOPAMIDOL-370 100ML BTL INJ ONE (15:37)
[2024-01-26] MEDS: LIDOCAINE 1% INJ 10MG/ML (20 ML MDV) SQ ONE ×3 (15:37→17:28)
[2024-01-26] MEDS ORDERED: carvediloL 12.5 MG TAB PO SCH (19:00)
--- NOTE | 2024-01-26 19:07 | P.EPPROC ---
- EP Procedure Note Electrophysiology Procedure Note: Diagnosis Worsening congestive heart failure class III Underlying nonischemic cardiomyopathy with complete heart block, failed LV/biventricular pacing Complete heart block, 100% RV paced Occluded left-sided subclavian vein, patent right-sided subclavian vein Result Successful right-sided left bundle pacing lead implantation Tunneling of this lead to the left side Explantation of old generator and implantation of new biventricular ICD Left bundle lead connected to the RV pacing port of the biventricular ICD Good sensing of R waves during VF without any dropouts DFT at a below 20 J, cathode vector, no dropouts Plan Increase carvedilol to 50 mg twice daily for hypertension management Stop hydralazine Reduce Lasix to 40 mg once daily Stop oral potassium Start spironolactone 25 mg p.o. daily Continue Entresto Add Farxiga later and stop Lasix completely if possible Final procedures performed Implantation of a left bundle pacing lead/conduction system pacing wire at the right subclavian vein Tunneling of this left bundle pacing lead to the left sided pocket Explantation of old BiV ICD generator Implantation of a new biventricular ICD generator Left bundle lead connected to the RV pacing port Defibrillation level testing Details Patient was brought to the EP lab in a fasting state. Written informed consent was obtained prior to the procedure. General anesthesia provided The entire chest was prepped for access to both the right and left pectoral areas IV antibiotics administered including IV vancomycin First left bundle pacing lead was implanted from the right side An incision was made in the left pectoral area This was carried down to the pectoral muscle and a small subfascial pocket was made Axillary vein access obtained, venous sheath placed First the standard nondeflectable sheath was used for left bundle pacing However multiple attempts this sheath would not reach the appropriate starting point on the right side After multiple attempts the sheath was removed A deflectable Medtr[employer] sheath for His bundle pacing was then used Using this sheath a mid septal position was obtained in this very large right ventricle The lead was screwed in Left bundle capture was noted with a short stimulus-peaked to V6 of less than 60 ms Rapid initial conduction, right bundle branch block morphology for the paced beat This took a considerably long time on account of dilated right ventricle and inability of the known deflectable sheath to reach the appropriate area The sheath was then slid and the lead was secured to the underlying pectoralis muscle with 2 sleeves Left-sided generator explant followed by implant The left-sided pectoral area was opened with a incision away from the previous incision The old generator was explanted, [employer] medical BiV ICD Partial capsulectomy was performed The pocket was enlarged caudally Hemostasis was assured Tunneling the left bundle pacing lead. Using the tunneling tool of the subcutaneous ICD system the left bundle lead was tunneled from the right side to the left side successfully A new biventricular ICD, Warren Quadra Assura MP model #3369-40 C, RIVET CATCHER-D was th en implanted The left bundle pacing lead was connected to the RV pacing port The rate-sense pin of the ICD lead was capped and secured to the pectoralis muscle The LV lead was connected to the LV port SVC port pin was used Antibiotic pouch was placed The wound was closed in 3 layers and dressed per protocol The wound on the right side was also closed per protocol with 2 layers Defibrillation level testing was performed First in the anodal configuration vector VF was induced and appropriately detected A 10 J shock followed by 20 J shock both were unsuccessful External defibrillation was provided successfully This testing was then repeated in the cathode configuration with success at 20 J Good sensing no dropouts Appropriate high-voltage impedance
[2024-01-26] MEDS: DEXAMETHASONE SOD PHOSPHATE 4 MG/ML 1 ML VIAL IV ONE (20:38)
[2024-01-26] MEDS: ONDANSETRON 4 MG/2 ML VIAL IVP ONE (20:38)
[2024-01-26] MEDS: ACETAMINOPHEN IV (For NPO) 1,000 MG in EMPTY BAG 1 BAG IVPB ONE (20:39)
[2024-01-26] MEDS: ATORVASTATIN 80 MG TAB PO SCH (20:47)
[2024-01-26] MEDS: SACUBITRIL/VALSARTAN 97 MG-103 MG TABLET PO SCH (20:47)
[2024-01-26] MEDS ORDERED: hydrALAZINE HCL 25 MG TAB PO SCH (22:00)
[2024-01-27] MEDS: carvediloL 12.5 MG TAB PO SCH (06:25)
--- NOTE | 2024-01-27 07:46 | XR ---
EXAMINATION TYPE: XR chest 2V DATE OF EXAM: 01/27/2024 HISTORY: Shortness of breath. COMPARISON: 01/10/2024 TECHNIQUE: Single view of the chest is submitted. FINDINGS: Demonstrated are scattered senescent parenchymal change. There is no evidence for focal infiltrate. Dual-lead pacer with distal leads within the right and right ventricle respectively. No pneumothorax present. The heart is stable. Hilar and mediastinal structures are within normal limits. Degenerative changes are seen of the dorsal spine. IMPRESSION: 1. Chronic changes without evidence for acute pulmonary disease.
[2024-01-27] MEDS: SPIRONOLACTONE 25 MG TAB PO SCH (11:23)
[2024-01-27] MEDS: FUROSEMIDE 40 MG TAB PO SCH (11:23)
--- NOTE | 2024-01-27 13:26 | P.PN ---
Subjective This morning when the patient went for x-ray his heart rates dipped down to the 30s and thereafter he demonstrated intermittent capture in the ventricle Review of the EKGs suggested lead dislodgment and absence of left bundle pacing The chest x-ray was reviewed and there is a gross dislodgment of the left bundle lead which is very unusual considering that this lead is screwed in deep into the ventricular septum to the left bundle Of note this is exactly what happened with the LV lead and the atrial lead many many years back No hematoma or swelling at the access sites in either pectoral area Heart sounds S1-S2 normal No loss of consciousness Blood pressure 127/94 mmHg pulse rate in the 60s afebrile No lower extremity edema Impression Severe nonischemic cardiomyopathy Failed BiV pacing with LV lead. That LV lead had backed out of the LV vein chronically Occluded left subclavian vein Upgrade to left bundle pacing/conduction system patient successfully from the right side This lead was then tunneled to the left side and connected to a new biventricular ICD generator The left bundle lead was connected to the RV pacing port yesterday Dislodgment of this left bundle lead I reprogrammed the device to pace via the LV lead I discussed this with CT surgery Dr. Diaz He is in agreement with the plan to extract the left bundle pacing lead, implant a new epicardial LV lead for biventricular pacing He will schedule the procedure either tomorrow or day after tomorrow depending upon the availability in the OR I had a detailed discussion with the patient regarding the events and the technicalities of the matter and he is in agreement Continue atorvastatin carvedilol Lasix Entresto and spironolactone CT surgery consult in place Patient transferred to the ICU for lack of beds on 3 S. Will follow Objective - Vital Signs Vital signs: Vital Signs Temp 98.1 F 01/27/24 11:45 Pulse 61 01/27/24 11:45 Resp 15 01/27/24 11:45 BP 127/94 01/27/24 11:45 Pulse Ox 97 01/27/24 11:45 FiO2 Intake & Output 01/26/24 01/27/24 01/27/24 18:59 06:59 18:59 Intake Total 50 100 Balance 50 100 Weight 87.7 kg 87.7 kg Intake: IV 50 100 Other: Voiding Method Urinal # Voids 2 1
--- NOTE | 2024-01-27 13:59 | P.GSCN ---
History of Present Illness Consult date: 01/27/24 Reason for Consult: Placement of LV lead Requesting physician: Koko Stoll History of present illness: This is a 53-year-old gentleman who follows outpatient with Dr. Sherman for internal medicine and Dr. Stoll for cardiology/EP. He has a previous medical history of dilated ischemic cardiomyopathy/chronic heart failure with reduced EF status post [facility] [employer] ICD placement, coronary artery disease status post inferior wall myocardial infarction with previous PCI to the LAD, hypertension, hyperlipidemia, GI bleed, current tobacco dependence, and EtOH/marijuana use. He presented to [facility] today for elective LV lead replacement as the previous lead had become dislodged and there was absence of left bundle pacing. Unfortunately the new lead became dislodged as well. Discussion took place between Dr. Stoll and Dr. Diaz, Dr. Diaz was consulted to take the patient to the OR for surgical LV lead placement. Review of Systems View of systems was completed and was negative Past Medical History Past Medical History: Coronary Artery Disease (CAD), Chest Pain / Angina, Heart Failure, Hyperlipidemia, Hypertension, Myocardial Infarction (NH) Additional Past Medical History / Comment(s): See Jerman's H&P,3rd degree heart block, ischemic cardiomyopathy, nonsustained Vtach, pt has AICD/pacer, hemor rhoids, lower GI bleed, benign colon polyp. Admitted for STEMI 01/10/24 pressure in chest and SOB per pt. Last Myocardial Infarction Date:: 01/07/18,01/10/24 History of Any Multi-Drug Resistant Organisms: None Reported Past Surgical History: AICD, Heart Catheterization With Stent, Pacemaker Additional Past Surgical History / Comment(s): 2018 Pacer then AICD/ PCI with stent, colonoscopy/benign polypectomy, oral surgery for teeth all teeth removed. Past Anesthesia/Blood Transfusion Reactions: No Reported Reaction Date of Last Stent Placement:: 01/07/2018 Type of Cardiac Device: Permanent Pacemaker, AICD Device Placement Date:: 01/07/18 Past Psychological History: No Psychological Hx Reported Additional Psychological History / Comment(s): He uses no assistive device. He is disabled. He uses the bus system. Smoking Status: Current every day smoker Past Alcohol Use History: None Reported Additional Past Alcohol Use History / Comment(s): Pt started smoking in 1986 <1ppd Past Drug Use History: Marijuana Additional Drug Use History / Comment(s): chews gummies. pt aware not to use today. - Past Family History Mother History Unknown: Yes Family Medical History: No Reported History Additional Family Medical History / Comment(s): Back problems. Father History Unknown: Yes Family Medical History: No Reported History Medications and Allergies Home Medications Medication Instructions Recorded Confirmed Type Aspirin 81 mg PO DAILY 30 Days #30 tab 08/05/21 01/26/24 Rx Atorvastatin [Lipitor] 80 mg PO HS 01/10/24 01/26/24 History Cholecalciferol [Vitamin D3 (25 25 mcg PO DAILY 01/10/24 01/26/24 History Mcg = 1000 Iu)] Cyanocobalamin (Vitamin B-12) 1,000 mcg PO DAILY 01/10/24 01/25/24 History [Vitamin B-12] Multivitamins, Thera [Multivitamin 1 tab PO DAILY 01/10/24 01/26/24 History (formulary)] Nitroglycerin Sl Tabs [Nitrostat] 0.4 mg SUBLINGUAL Q5M PRN 01/10/24 01/25/24 History Sacubitril/Valsartan [Entresto 97 1 tab PO BID 01/10/24 01/26/24 History mg-103 mg Tablet] Furosemide [Lasix] 40 mg PO DAILY #90 tablet 01/26/24 Rx Spironolactone 25 mg PO DAILY #90 tablet 01/26/24 Rx carvediloL 50 mg PO BID #180 tablet 01/26/24 Rx Allergies Allergy/AdvReac Type Severity Reaction Status Date / Time Milk Containing Products AdvReac Nausea & Verified 01/25/24 09:46 (Dairy) Vomiting & [Dairy] Diarrhea Surgical - Exam Vital Signs Temp Pulse Resp BP Pulse Ox 97.8 F 73 16 140/92 100 01/26/24 13:07 01/26/24 13:07 01/26/24 13:07 01/26/24 13:01/26/24 13:07 CONSTITUTIONAL: Awake and alert, appears comfortable, cooperative, well- developed, well-nourished, no pain, no acute distress EYES: Pupils equal, round, reactive to light, normal ocular movement ENT: Moist mucous membranes without oral lesions present NECK: No masses, no bruits, trachea midline RESPIRATORY: Lungs sounds clear to auscultation bilaterally. Respirations even, nonlabored. Currently on room air with oxygen saturation 97%. Strong cough CARDIOVASCULAR: S1, S2 present. Regular rate and rhythm, sinus rhythm on telemetry. Palpable peripheral pulses bilaterally. No edema present. No calf pain or tenderness noted GASTROINTESTINAL: Abdomen soft, nontender, nondistended without masses or organomegaly noted. There is no rebound or guarding present. Active bowel s ounds present 4 quadrants. GENITOURINARY: Deferred INTEGUMENTARY: Skin is warm and dry, dressings in place to right and left chest NEUROLOGIC: Cranial nerves II through XII intact, normal coordination, no obvious motor or sensory deficits, speech is normal MUSKULOSKELETAL: Able to move all extremities, strength equal bilaterally, normal posture PSYCHIATRIC: Alert and oriented to person place and time, appropriate affect, intact judgment and insight Results - Imaging EKG: image reviewed Assessment and Plan Assessment: Dilated ischemic cardiomyopathy/chronic heart failure with reduced EF 10-15%, status post [facility] ICD placement, unsuccessful replacement of LV lead Coronary artery disease status post inferior wall myocardial infarction with previous PCI to the LAD Hypertension Hyperlipidemia GI bleed Current tobacco dependence EtOH/marijuana use Plan: The patient was seen and examined at the bedside with Dr. Diaz. Chart/diagnostics reviewed. At this time our plan is for thoracoscopic left ventricular lead placement with upgrade to biventricular internal cardiac defibrillator by Dr. Diaz on Monday, January 29, 2024. The usual perioperative course was discussed in detail with the patient by Dr. Diaz, risks and benefits reviewed, all questions were answered. He will be n.p.o. after midnight Thursday morning. Risk factor modification discussed. Medical management of other comorbidities per Dr. Stoll. More recommendations to follow. Thank you Dr. Stoll for this consult. I have personally seen and examined the patient, performed the documentation and the assessment and plan as written. Number of minutes spent on the visit: 30. STAR [place]
[2024-01-27] MEDS: ACETAMINOPHEN TAB 325 MG TAB PO PRN (20:56)
--- NOTE | 2024-01-28 09:29 | P.PN ---
Subjective Progress Note Date: 01/28/24 The patient is a 53-year-old male who follows in the office with Dr. Stoll. The patient underwent left bundle lead placement on 01/26/24. Unfortunately after his x-ray yesterday morning, the patients lead had dislodged and he had failure of capture via telemetry. CV surgery was consulted for epicardial lead placement, which will be performed tomorrow morning by Dr. Diaz. Details of the procedure have been explained to the patient by Dr. Stoll this morning at bedside. The patient states he is still little diaphoretic and weak. No chest pain or chest pressure. No difficulty breathing. GENERAL: Well-appearing, well-nourished and in no acute distress. NECK: Supple without JVD or thyromegaly. LUNGS: Breath sounds clear to auscultation bilaterally. Respiration equal and unlabored. No wheezes, rales or rhonchi. HEART: Irregular rate and rhythm without murmurs, rubs or gallops. S1 and S2 h eard. EXTREMITIES: Normal range of motion, no edema. No clubbing or cyanosis. Peripheral pulses intact and strong. TELEMETRY: Paced rhythm IMPRESSION: Severe nonischemic cardiomyopathy Failed BiV pacing with LV lead Left bundle pacing lead dislodgment PLAN: Continue current cardiac medication regimen N.p.o. after midnight Epicardial lead placement tomorrow with Dr. Diaz I am dictating on behalf of Dr Koko Stoll's history/physical and assessment/plan. Objective - Vital Signs Vital signs: Vital Signs Temp 98.2 F 01/28/24 04:00 Pulse 70 01/28/24 04:00 Resp 16 01/28/24 04:00 BP 138/98 01/28/24 04:00 Pulse Ox 97 01/28/24 04:00 FiO2 Intake & Output 01/27/24 01/28/24 01/28/24 18:59 06:59 18:59 Weight 91.9 kg Other: Voiding Method Toilet Toilet # Voids 3 2
--- NOTE | 2024-01-28 16:15 | P.PN ---
Subjective Progress Note Date: 01/28/24 Principal diagnosis: Dilated nonischemic cardiomyopathy with complete heart block, chronic heart failure class III with reduced EF 10-15%, status post [facility] ICD placement, unsuccessful replacement of LV lead. Past medical history significant for coronary artery disease status post inferior wall myocardial infarction with previous PCI to the LAD, hypertension, hyperlipidemia, history of GI bleed, chronic ongoing tobacco dependence, EtOH use and marijuana use. POD #2 Successful right-sided left bundle pacing lead implantation, tunneling of this lead to the left side, explantation of old generator and implantation of new biventricular ICD, left bundle lead connected to the RV pacing port of the biventricular ICD, good sensing of R waves during VF without any dropouts, DFT at a below 20 J, cathode vector, no dropouts completed by Dr. Stoll from electrophysiology. The patient was seen and examined at his bedside on the third floor cardiac stepdown unit today January 28, 2024. He is currently just finished in the shower, is awake, alert, oriented x 3 and is in no acute apparent distress. He denies any complaints of pain or shortness of breath at this time. Dr. Diaz discussed the surgical plan for thoracoscopic left ventricular lead placement with upgrade to biventricular internal cardiac defibrillator scheduled for Monday, January 29, 2024. Usual perioperative course was discussed in detail with the patient by Dr. Diaz, risks and benefits were reviewed and all of his questions were answered. Oxygen saturations are 97% on room air. He remains hemodynamically stable and is currently on no inotropic or pressor support. Objective - Vital Signs Vital signs: Vital Signs Temp 97.9 F 01/28/24 12:00 Pulse 68 01/28/24 12:00 Resp 18 01/28/24 12:00 BP 123/89 01/28/24 12:00 Pulse Ox 97 01/28/24 12:00 FiO2 Intake & Output 01/27/24 01/28/24 01/28/24 18:59 06:59 18:59 Intake Total 240 Balance 240 Weight 91.9 kg Intake: Oral 240 Other: Voiding Method Toilet Toilet Toilet # Voids 3 2 1 - Exam CONSTITUTIONAL: Awake and alert, appears comfortable, cooperative, no pain, no acute distress ENT: Moist mucous membranes without oral lesions present NECK: No masses, no bruits, trachea midline RESPIRATORY: Lungs sounds clear throughout. Respirations symmetrical, nonlabored. Currently on room air with oxygen saturation 97%. Strong cough CARDIOVASCULAR: S1, S2 present. Regular rate and rhythm, sinus rhythm on telemetry. Palpable peripheral pulses bilaterally. No edema present. No calf pain or tenderness noted GASTROINTESTINAL: Abdomen soft, nontender, nondistended without masses or organomegaly noted. There is no rebound or guarding present. Active bowel sounds present 4 quadrants. GENITOURINARY: Continues to void. INTEGUMENTARY: Skin is warm and dry, dressings in place to right and left chest, no clubbing or cyanosis is present. NEUROLOGIC: Cranial nerves II through XII intact, no focal deficits. MUSKULOSKELETAL: Able to move all extremities, strength equal bilaterally, normal posture PSYCHIATRIC: Alert and oriented to person place and time, appropriate affect, intact judgment and insight - Allied health notes Allied health notes reviewed: nursing Assessment and Plan Assessment: Dilated non-ischemic cardiomyopathy/chronic heart failure with reduced EF 10- 15%, status post [facility] ICD placement, unsuccessful replacement of LV lead Complete heart block, 100% RV paced, unsuccessful placement of LV lead Coronary artery disease status post inferior wall myocardial infarction with previous PCI to the LAD Hypertension Hyperlipidemia History of GI bleed Chronic ongoing tobacco dependence EtOH/marijuana use Plan: The patient will be made n.p.o. after midnight. Preoperative instructions were reviewed. The patient is scheduled tomorrow January 29, 2024 for thoracoscopic left ventricular lead placement, upgrade to biventricular internal cardiac defibrillator device to be performed by Dr. Diaz. Medical management and other comorbidities per cardiology service. More recommendations to follow based on patient's clinical course. Time with Patient: Less than 30
[2024-01-28] MEDS: ASPIRIN 81 MG PO SCH (17:22)
[2024-01-29] MEDS ORDERED: ONDANSETRON 4 MG/2 ML VIAL ONE (06:47)
[2024-01-29] MEDS: LACTATED RINGERS 1,000 ML IV ONE ×3 (07:01→11:00)
[2024-01-29] MEDS: ONDANSETRON 4 MG/2 ML VIAL IVP ONE (07:02)
[2024-01-29 07:07] LABS: ALT 20 U/L (4-49); AST 29 U/L (17-59); African American GFR (CKD) 78 (>60 ml/min/1.73 sqM); Albumin 3.6 g/dL (3.5-5.0); Alkaline Phosphatase 94 U/L (38-126); Anion Gap 6 mmol/L; Blood Urea Nitrogen 18 mg/dL (9-20); Calcium 9.1 mg/dL (8.4-10.2); Carbon Dioxide 23 mmol/L (22-30); Chloride 109 mmol/L (98-107); Glucose 104 mg/dL (74-99); Non-African American GFR(CKD) 67 (>60 ml/min/1.73 sqM); Potassium 3.8 mmol/L (3.5-5.1); Sodium 138 mmol/L (137-145); Total Protein 6.9 g/dL (6.3-8.2)
[2024-01-29 07:13] LABS: Basophils % (A) 0 %; Eosinophils # (A) 0.1 k/uL (0-0.7); Eosinophils % (A) 2 %; HCT 41.5 % (39.0-53.0); Lymphocytes # (A) 1.8 k/uL (1.0-4.8); Lymphocytes % (A) 27 %; MCH 30.5 pg (25.0-35.0); MCHC 33.6 g/dL (31.0-37.0); Mean Platelet Volume 8.5; Monocytes # (A) 0.6 k/uL (0-1.0); Monocytes % (A) 8 %; Neutrophils # (A) 3.9 k/uL (1.3-7.7); Neutrophils % (A) 59 %; Platelet Count 155 k/uL (150-450); RBC 4.56 m/uL (4.30-5.90); WBC 6.5 k/uL (3.8-10.6)
[2024-01-29 07:14] LABS: INR 1.1 (<1.2)
[2024-01-29 07:18] LABS: HGB 13.9 gm/dL (13.0-17.5)
[2024-01-29] MEDS ORDERED: LABETALOL 5 MG/ML VIAL MDV ONE (07:30)
[2024-01-29] MEDS ORDERED: ROPIVACAINE 5 MG/ML 30 ML VIAL ONE (07:30)
[2024-01-29] MEDS ORDERED: MIDAZOLAM 2 MG/2 ML VIAL ONE (07:30)
[2024-01-29] MEDS ORDERED: PHENYLEPHRINE-0.9% NACL SYG 1,000 MCG/10 ML SYRINGE ONE (07:30)
[2024-01-29] MEDS ORDERED: VASOPRESSIN 20 UNIT/ML 1 ML VIAL ONE (07:30)
[2024-01-29] MEDS ORDERED: GLYCOPYRROLATE 0.2 MG/ML 2 ML VIAL ONE (07:30)
[2024-01-29] MEDS ORDERED: ROCURONIUM 10 MG/ML (5 ML VIAL) IV ONE (07:30)
[2024-01-29] MEDS ORDERED: HYDROmorphone (PF) 1 MG/ML ONE (07:30)
[2024-01-29] MEDS ORDERED: LIDOCAINE 1% INJ 10MG/ML (20 ML MDV) ONE (07:30)
[2024-01-29] MEDS ORDERED: ePHEDrine 50 MG/ML 1 ML VIAL ONE (07:30)
[2024-01-29] MEDS ORDERED: SUCCINYLCHOLINE CHLORIDE 200 MG/10 ML VIAL IV ONE (07:30)
[2024-01-29] MEDS ORDERED: ETOMIDATE 2 MG/ML 10 ML VIAL ONE (07:30)
[2024-01-29] MEDS ORDERED: fentaNYL (PF) 50 MCG/ML 2 ML AMP ONE (07:30)
[2024-01-29] MEDS ORDERED: SUGAMMADEX SODIUM 200 MG/2 ML SDV IV ONE (07:30)
--- NOTE | 2024-01-29 10:16 | P.OP ---
Date of Procedure: 01/29/24 Preoperative Diagnosis: Congestive heart failure, status post BiV ICD, malfunctioning left coronary sinus lead, status post placement of LV trans septal lead with subsequent lead dislodgment. Postoperative Diagnosis: Same, Procedure(s) Performed: Left thoracoscopic LV epicardial lead placement, evacuation of hematoma from pacemaker pocket, removal of transseptal LV pacemaker lead, BiV ICD generator change. Implants: #1: Ideacentric screw-in LV epicardial lead reference #[id number] serial #[id number] #2: [employer] allApparcando RF cardiac resynchronization therapy pulse generator reference number PM322 serial #[id number] Anesthesia: GETA Surgeon: Diomedes Diaz Ripsaw Operator #1: Jordon Ames Estimated Blood Loss (ml): 10 IV fluids (ml): 800 Urine output (ml): 0 Pathology: other (LV transseptal lead, BiV ICD pulse generator) Condition: stable Disposition: PACU Indications for Procedure: 53-year-old male with 10% ejection fraction secondary to cardiomyopathy. He is status post resynchronization therapy several years ago. He recently has developed increasing shortness of breath and it was noted that his coronary sinus LV lead had pulled back and was likely nonfunctional. An attempt was made to place an LV transseptal lead and this appeared successful but the lead had dislodged by the following day and the patient again was symptomatic. We were consulted for urgent placement of a thoracoscopic LV epicardial lead with removal of the transseptal LV lead. Operative Findings: The left pleural space was free of adhesions. The pericardium was thin and without significant pericardial effusion. Good site of muscle on the lateral wall was found for screwing in the LV lead. On opening the pacemaker pocket there was a large hematoma present. This was evacuated and irrigated out. In addition on opening of the right subclavian incision where the LV transseptal lead had been placed and tunneled from there was also a small hematoma here which was also evacuated and irrigated out. Thresholds on the epicardial LV lead were R waves of 2.1 mV, impedance of 496 ohms., Capture threshold of 1.0 V at 0.5 ms pulse width. Description of Procedure: Patient was brought to the operating room and placed supine on the operating table. General anesthesia was induced. Double-lumen endotracheal tube was placed and appropriately positioned with fiberoptic bronchoscopy and secured. Patient was turned in the right lateral decubitus position. The left chest was sterilely prepped and draped. ICD pads have been placed. Initial incision was made in the posterior axillary line in the fifth interspace interspace and a 10.5 Thoracoport was placed. Single lung ventilation had been begun and thoracoscope was placed. Pericardium was found to be very thin and there were no adhesions present. Phrenic nerve was visualized and incision of the pericardium was planned significantly posterior to this to avoid any injury to the phrenic nerve. Second incision was made in the posterior axillary line in the seventh interspace. Ring clamp was placed through this and the lung was compressed so that we had good visualization of the pericardium. Ring clamp was used to grasp the pericardium lifted upwards and a EndoShears was used to incise the pericardium. Once the initial incision was made the incision was enlarged to allow good access to the pericardium. Ring forceps was used to grasp the pericardium superiorly. Great batch medical screw-in lead was now brought in through the inferior incision and screwed into the left ventricle without difficulty. 2-1/2 roll turns were performed. The lead was then released and had excellent contact with the left ventricle appeared to be screwed into completely. The ring forceps was just engaged from the pericardium and the pericardium slipped over the lead from superior toward inferior. The lead was tested with excellent thresholds as noted above. Tunneling device was used to tunnel the catheter into the subcutaneous tissue just below the pacemaker pocket. The lead was pulled through leaving a good heel of lead present within the pleural space. The lung was reinflated under thoracoscopic visualization being certain to have the lead lie against the mediastinal pleura up to the chest wall exit site. The lead was now coiled within a small subcutaneous pocket just below the pacemaker pocket and this was closed with skin moriah. Thoracoscope was removed and the 2 thoracoscopic incisions were closed with layers of Vicryl suture. Skin glue and Band-Aid dressings were applied and the patient was turned supine. Right and left anterior chest were we sterilely prepped and draped to include the pacemaker site, the site of the new LV lead and the right subclavian site where the transseptal LV lead had been placed. We first remove the moriah from the new LV lead site and assured that the lead was still lying with appropriate length. Next the pacemaker pocket was opened. There was a large hematoma encountered. Pacemaker was removed from the pocket and the pocket was irrigated out and gently debrided with gauze sponges. This was not an excisional debridement. The previous RV pacing lead had been capped and was sewn to the back wall of the pacemaker pocket and this was freed up. New pulse generator was brought up on the field. The new LV lead was tunneled from its small pocket upwards into the pacemaker pocket and connected to the new pulse generator. Following this, the RV lead was uncapped and appropriately connected to the new pulse generator. ICD lead was connected. Atrial lead was connected. The remaining port in the device for a SVC defibrillator lead was plugged. Previous LV coronary sinus lead had been disconnected and was capped and sewn to the back wall of the pacemaker pocket. The previous LV transseptal lead was now removed in the following fashion. The previous incision in the right subclavian space was opened a small hematoma was present here and it was evacuated and irrigated out and gentle gauze debridement was again performed again without any excisional debridement. There were 2 tied down securing the lead here and these were freed and removed and then the LV lead was carefully and gently pulled out of the patient and sent for pathology. We irrigated all 3 sites with antibiotic solution and closed all 3 sites with layers of Vicryl suture. The pacemaker was replaced in the pocket with the leads coiled behind it prior to closure. Skin glue and dry sterile dressings were applied the patient was transferred to the recovery area in stable condition.
--- NOTE | 2024-01-29 11:21 | XR ---
EXAMINATION TYPE: XR chest 1V portable DATE OF EXAM: 01/29/2024 COMPARISON: 01/27/2020 HISTORY: Postpacer lead placement TECHNIQUE: Single frontal view of the chest is obtained. FINDINGS: There is a small left pneumothorax measuring approximately 10%. There is no mediastinal de viation. There is diffuse subcutaneous air Seen along the left chest. Multilead cardiac device is stable. There is a new area of consolidation and small left pleural effus ion. Right lung is clear. Heart markedly enlarged. Atherosclerotic change aorta. Osseous structures s table. Report called to the patient's nurse at 11:16 AM 01/29/2024. IMPRESSION: 1.There is interval development of of left lower lobe consolidation and small pleural effusion. 2. There is a approximately 10% left pneumothorax diffuse left-sided subcutaneous emphysema.
--- NOTE | 2024-01-29 13:19 | P.ANPRN ---
Procedure Note - Anesthesia - Nerve Block Performed Left Erector Spinae Single Time Out Performed: Yes ([id number]) Date of Procedure: 01/29/24 Procedure Start Time: Procedure Stop Time: Location of Patient: PreOp Indication: Acute Post-Operative Pain, Requested by Surgeon Specifically requested for management of pain by DrDerek: Diomedes Diaz Sedation Type: Sedate with meaningful contact maintained Preparation: Sterile Prep Position: Supine Catheter: None Needle Types: Pajunk Needle Gauge: 21 Ultrasound used to visualize needle placement: Yes Ultrasound used to observe medication spread: Yes Injectate: 0.5% Ropivacaine (see comment for volume) (30cc) Blood Aspirated: No Pain Paresthesia on Injection Noted: No Resistance on Injection: Normal Image Stored and Saved: Yes Events: Uneventful and Well Tolerated
[2024-01-29] MEDS: ONDANSETRON 4 MG/2 ML VIAL IVP PRN (14:30)
[2024-01-29] MEDS: HYDROmorphone 0.5 MG/0.5 ML SYRINGE IVP STA (14:30)
--- NOTE | 2024-01-29 14:53 | XR ---
EXAMINATION TYPE: XR chest 1V portable DATE OF EXAM: 01/29/2024 HISTORY: Thorax COMPARISON: 01/29/2024 TECHNIQUE: Single view of the chest is submitted. FINDINGS: Left apical pneumothorax is again noted and is much smaller in size and is estimated at approximately 5%. There is subcutaneous emphysema redemonstrated. Increased density left lower lobe could reflect atelectasis. Right lung is clear. The heart is stable. Hilar and mediastinal structures are within normal limits. Degenerative changes are seen of the dorsal spine. IMPRESSION: 1. Left apical pneumothorax is again noted and is much smaller in size and is estimated at approxima tely 5%. There is subcutaneous emphysema redemonstrated. Increased density left lower lobe could refl ect atelectasis.
[2024-01-29] MEDS: HYDROcodone/APAP 5-325MG 1 EACH TAB PO PRN (16:33)
[2024-01-29] MEDS: LACTATED RINGERS 1,000 ML IV SCH (21:15)
[2024-01-29] MEDS: SODIUM CHLORIDE 0.9% 1,000 ML IV SCH (21:15)
--- NOTE | 2024-01-30 08:04 | P.PN ---
Subjective Progress Note Date: 01/30/24 Principal diagnosis: Dilated nonischemic cardiomyopathy with complete heart block, chronic heart failure class III with reduced EF 10-15%, status post [facility] ICD placement, unsuccessful replacement of LV lead. Past medical history significant for coronary artery disease status post inferior wall myocardial infarction with previous PCI to the LAD, hypertension, hyperlipidemia, history of GI bleed, chronic ongoing tobacco dependence, EtOH use and marijuana use. POD #4 Successful right-sided left bundle pacing lead implantation, tunneling of this lead to the left side, explantation of old generator and implantation of new biventricular ICD, left bundle lead connected to the RV pacing port of the biventricular ICD, good sensing of R waves during VF without any dropouts, DFT at a below 20 J, cathode vector, no dropouts completed by Dr. Stoll from electrophysiology POD #1 Left thoracoscopic LV epicardial lead placement, evacuation of hematoma from pacemaker pocket, removal of transseptal LV pacemaker lead, BiV ICD generator change. The patient was seen and examined laying in bed on the cardiac stepdown unit in no acute distress. States he feels better than yesterday. Yesterday afternoon he had an episode of severe pain and shortness of breath. He was noted to be hypertensive. Stat portable chest x-ray ordered, no change from previous except 10% pneumothorax was down to 5% on the left side. IV hydralazine and IV pain medication were given, blood pressure returned to normal, patient's pain improved. This morning patient reports he feels better, got some sleep last night. Chest x-ray reviewed. Currently ventricular paced on telemetry, remains on room air. No other new concerns. Objective - Vital Signs Vital signs: Vital Signs Temp 98.1 F 01/29/24 19:42 Pulse 83 01/30/24 04:00 Resp 20 01/30/24 04:00 BP 97/66 01/30/24 04:00 Pulse Ox 95 01/30/24 04:00 FiO2 Intake & Output 01/29/24 01/30/24 01/30/24 18:59 06:59 18:59 Intake Total 1650 Output Total 20 Balance 1630 Weight 91.2 kg Intake: IV 1650 Output: Urine 0 Estimated Blood Loss 20 Other: Voiding Method Toilet Toilet # Voids 2 - Exam CONSTITUTIONAL: Appears comfortable, cooperative, no acute distress RESPIRATORY: Lungs sounds diminished bilaterally. Respirations even, nonlabored. Currently on room air with oxygen saturation 97% CARDIOVASCULAR: S1, S2 present. Ventricular paced on telemetry. Palpable peripheral pulses bilaterally. No edema present. No calf pain or tenderness noted GASTROINTESTINAL: Abdomen soft, nontender, nondistended. Active bowel sounds present 4 quadrants. Tolerating diet GENITOURINARY: Continues to void INTEGUMENTARY: Skin is warm and dry. Left anterior chest incision well- approximated and covered with dry intact dressing, some swelling present, no increase from yesterday. Right anterior chest incision covered with dry intact dressing. NEUROLOGIC: Cranial nerves II through XII intact MUSKULOSKELETAL: Able to move all extremities, strength equal bilaterally PSYCHIATRIC: Alert and oriented to person place and time, appropriate affect, intact judgment and insight - Allied health notes Allied health notes reviewed: nursing - Labs CBC & Chem 7: 01/29/24 06:35 01/29/24 06:35 - Imaging and Cardiology Chest x-ray: image reviewed Assessment and Plan Assessment: Dilated ischemic cardiomyopathy/chronic heart failure with reduced EF 10-15%, status post [facility] Gu[facility] ICD placement, unsuccessful replacement of LV lead, status post left thoracoscopic LV epicardial lead placement, evacuation of hematoma from pacemaker pocket, removal of transseptal LV pacemaker lead, BiV ICD gene rator change. Coronary artery disease status post inferior wall myocardial infarction with previous PCI to the LAD Hypertension Hyperlipidemia GI bleed Current tobacco dependence EtOH/marijuana use Plan: Will sign off on the case Patient may be discharged when okay with Dr. Stoll Pain control per current medication regimen Increase activity as tolerated Please call us with any further questions
[2024-01-30 08:05] VITALS: RESP 18; TEMP 96.7
[2024-01-30 11:59] VITALS: BP 98/57; PULSE 75
--- NOTE | 2024-01-30 12:33 | P.DS ---
Providers Date of admission: 01/26/24 11:55 Attending physician: Koko Stoll Consults: 01/27/24 10:26 Consult Physician Routine Consulting Provider: Diomedes Diaz Consult Reason/Comments: pacer lead placement Do you want consulting provider notified?: Yes Primary care physician: [facility] Course: Patient is doing well He underwent epicardial LV lead placement yesterday Small hematoma at the ICD site on the left side The right-sided left bundle lead was extracted intraoperatively He is pain-free mild discomfort in the left pectoral area Heart sounds are regular Breath sounds are clear Impression Severe nonischemic cardiomyopathy Class II CHF, diagnosis Chronic cardiomyopathy, severe, despite maximally tolerated right line directed medical treatment Congestive heart failure, systolic, [place] [employer] Class 2-3 Initially a left bundle lead was implanted from the right side and tunneled across to the left side Successful left bundle lead placement Complete dislodgment of the left bundle lead next morning Following that an epicardial LV lead was placed The twelve-lead EKG shows biventricular pacing Thresholds are excellent Plan discharge home today on atorvastatin 80 mg p.o. daily carvedilol 50 mg twice daily Lasix 40 mg daily Entresto 97/103 mg twice daily and Aldactone Follow-up in the device clinic in 1 week Follow-up with Dr. Stoll in 6 to 8 weeks Plan - Discharge Summary Discharge Rx Participant: No New Discharge Prescriptions: New carvediloL 50 mg PO BID #180 tablet Furosemide [Lasix] 40 mg PO DAILY #90 tablet Spironolactone 25 mg PO DAILY #90 tablet Discontinued carvediloL 25 mg PO BID Furosemide [Lasix] 40 mg PO BID@0900,1600 #60 tab Potassium Chloride 10 meq PO BID #60 cap hydrALAZINE HCL [Apresoline] 25 mg PO TID #60 tab No Action Cholecalciferol [Vitamin D3 (25 Mcg = 1000 Iu)] 25 mcg PO DAILY Atorvastatin [Lipitor] 80 mg PO HS Aspirin 81 mg PO DAILY 30 Days #30 tab Nitroglycerin Sl Tabs [Nitrostat] 0.4 mg SUBLINGUAL Q5M PRN PRN Reason: Chest Pain Multivitamins, Thera [Multivitamin (formulary)] 1 tab PO DAILY Sacubitril/Valsartan [Entresto 97 mg-103 mg Tablet] 1 tab PO BID Cyanocobalamin (Vitamin B-12) [Vitamin B-12] 1,000 mcg PO DAILY Discharge Medication List Aspirin 81 mg PO DAILY 30 Days #30 tab 08/05/21 [Rx] Atorvastatin [Lipitor] 80 mg PO HS 01/10/24 [History] Cholecalciferol [Vitamin D3 (25 Mcg = 1000 Iu)] 25 mcg PO DAILY 01/10/24 [History] Cyanocobalamin (Vitamin B-12) [Vitamin B-12] 1,000 mcg PO DAILY 01/10/24 [History] Multivitamins, Thera [Multivitamin (formulary)] 1 tab PO DAILY 01/10/24 [Histor y] Nitroglycerin Sl Tabs [Nitrostat] 0.4 mg SUBLINGUAL Q5M PRN 01/10/24 [History] Sacubitril/Valsartan [Entresto 97 mg-103 mg Tablet] 1 tab PO BID 01/10/24 [History] Furosemide [Lasix] 40 mg PO DAILY #90 tablet 01/26/24 [Rx] Spironolactone 25 mg PO DAILY #90 tablet 01/26/24 [Rx] carvediloL 50 mg PO BID #180 tablet 01/26/24 [Rx] Follow up Appointment(s)/Referral(s): Koko Stoll MD [STAFF PHYSICIAN] - 02/03/24 4:00 pm Activity/Diet/Wound Care/Special Instructions: PATIENT EDUCATION MATERIAL Instructions following a heart rhythm device implant. 1. Keep dressing DRY for 5 DAYS. You may cover the area with Saran or Cling Wrap, prior to a shower. 2. The dressing will be removed in the Device Clinic at [facility]. Absorbable sutures were used to close the wound. 3. Avoid raising the left arm above the shoulder level. 4 week restriction 4. Avoid arm movements, like backscratching, rubbing the head, or pulling on a cord. 4 weeks restriction 5. Gentle range of motion movements of the shoulder, closest to the incision should be performed to avoid a frozen shoulder. (Pendulum exercises of the shoulder) 6. The opposite arm may be used freely. 7. Avoid driving for 7 days. 8. Avoid activities such as golfing, swimming, weed whacking, lifting more than 10 pounds weight, bowling, gymnastics and weight training/lifting. (6 weeks restriction) 9. Activities such as wood chopping with an axe, pull-ups in the gymnasium, power lifting, arc-welding, being close to home induction cooktops will always be a problem. 10. Arm sling is only a reminder not to raise the arm above the head. You do not need to keep the arm completely immobilized. Your free to move the arm and use it and for normal activities. In case of any problems, please call [facility], [place], @ [phone], Attention: Device Clinic Device clinic follow-up in 5 days Follow-up with primary manager of case management in 2-3 months Increase carvedilol to 50 mg twice daily Reduce Lasix to 40 mg once daily Stop oral potassium Start spironolactone 25 mg p.o. daily Stop hydralazine Continue Entresto Continue statins and aspirin
--- NOTE | 2024-01-30 13:32 | XR ---
EXAMINATION TYPE: XR chest 2V DATE OF EXAM: 01/30/2024 6:48 AM CLINICAL INDICATION:Male, 53 years old with history of post pacer lead; H COMPARISON: 01/29/2024 and before TECHNIQUE: XR chest 2V. Frontal and lateral views of the chest.. FINDINGS: Stable left chest 3-lead pacemaker/ICD with lead tips overlying the RA, RV, coronary sinus. Monitor l zoya and other extraneous densities over the chest. Stable cardiomediastinal silhouette. Heart appears enlarged. Stable left basilar pleural/parenchymal opacity. Stable appearance of small residual left apical pneu mothorax. Right lung remains clear. Slightly increased subcutaneous emphysema in the left chest wall and base of neck. Osseous structures appear unchanged. IMPRESSION: 1. Stable small residual left apical pneumothorax. 2. Slightly increased subcutaneous emphysema left chest wall and base of neck. 3. Stable left basilar pleural/parenchymal opacity may reflect pleural effusion and atelectasis, inf ection should be excluded clinically.
== END 2024-01-30 13:12 | disposition home or self-care (01) | DRG 277 ==
LOC: CATHEP 11:54 → 2SICU 11:55 → 6NMEDSUR 18:24 → 2SICU 01-27 09:30 → 6NMEDSUR 01-27 09:30 → 3SCARD 01-28 14:55
PROVIDERS: ADMIT Internal Medicine Clinical Cardiac Electrophysiology; ATTEND Internal Medicine Clinical Cardiac Electrophysiology
DX: I42.0 Dilated cardiomyopathy (principal); I44.2 Atrioventricular block, complete; J93.9 Pneumothorax, unspecified; I50.22 Chronic systolic (congestive) heart failure; T82.120A Displacement of cardiac electrode, initial encounter; I82.B22 Chronic embolism and thrombosis of left subclavian vein; I11.0 Hypertensive heart disease with heart failure; I25.10 Atherosclerotic heart disease of native coronary artery without angina pectoris; E78.5 Hyperlipidemia, unspecified; F17.210 Nicotine dependence, cigarettes, uncomplicated; Y71.1 Therapeutic (nonsurgical) and rehabilitative cardiovascular devices associated with adverse incidents; I25.2 Old myocardial infarction; Z95.5 Presence of coronary angioplasty implant and graft; Z87.19 Personal history of other diseases of the digestive system; Z79.82 Long term (current) use of aspirin; Z79.899 Other long term (current) drug therapy; Z91.011 Allergy to milk products
CPT/HCPCS: 33241; 33249; 64999; 71045; 71046; 80053; 85025; 85610; 86850; 86900; 86901; 88304

== ENCOUNTER → 2024-02-03 | Outpatient (CLI) | payer MEDICARE, OTHER ==
--- NOTE | 2024-02-03 11:43 | XR ---
EXAMINATION TYPE: XR chest 2V DATE OF EXAM: 02/03/2024 COMPARISON: Prior chest x-ray 4 days earlier. HISTORY: Cardiomyopathy. TECHNIQUE: Frontal and lateral views of the chest are obtained. FINDINGS: Persistent cardiomegaly with dual lead pacemaker. Improved left basilar opacity. Persiste nt overlying left sided subcutaneous emphysema. Right lung remains clear. The osseous structures are intact. IMPRESSION: Improving left pleural effusion and associated left basilar opacity. Persistent likely i mproving left-sided subcutaneous emphysema. Right lung remains clear.
== END | disposition home or self-care (01) ==
LOC: RADXRMAIN 11:08
PROVIDERS: ATTEND Internal Medicine Clinical Cardiac Electrophysiology
DX: J90 Pleural effusion, not elsewhere classified (principal); I42.9 Cardiomyopathy, unspecified
CPT/HCPCS: 71046